=== PATIENT | female | born 1940 | race Two or more races ===

== ENCOUNTER 2021-11-23 13:29 | Inpatient (IN) | payer OTHER, MEDICAID ==
[~2021-11-23] VITALS: Ht 157.5 cm; Wt 54.0 kg
--- NOTE | 2021-11-23 13:45 | NUR ---
[employer]ILY [facility]EBR FOR ABD PAIN 8/10 AND DIFFICULTY AND PAINFULL URINATION SINCE LAST NIGHT. PLACED COMFORTABLY IN BED. VITALS CHECKED.
--- NOTE | 2021-11-23 13:53 | NUR ---
UNABLE TO PROVIDE URINE AT THIS TIME
[2021-11-23] MEDS ORDERED: BENZ0.5T43 PO (13:56)
[2021-11-23] MEDS ORDERED: DONE10TA44 PO (13:56)
[2021-11-23] MEDS ORDERED: NIFE-35 PO (13:56)
[2021-11-23] MEDS ORDERED: LORA2TAB95 PO (13:56)
[2021-11-23] MEDS ORDERED: APIX2.5T PO (13:56)
[2021-11-23] MEDS ORDERED: DOCU-141 PO (13:56)
[2021-11-23] MEDS ORDERED: METO50TA16 PO (13:56)
[2021-11-23] MEDS ORDERED: EPLE25TA10 PO (13:56)
[2021-11-23] MEDS ORDERED: ONDA-97 PO (13:56)
[2021-11-23] MEDS ORDERED: POTA20TA83 PO (13:56)
[2021-11-23] MEDS ORDERED: LEVO75TA7 PO (13:56)
[2021-11-23] MEDS ORDERED: MEMA10TA56 PO (13:56)
[2021-11-23] MEDS ORDERED: HYDR-4076 PO (13:56)
[2021-11-23] MEDS ORDERED: QUET25TA PO (13:56)
[2021-11-23] MEDS ORDERED: ZOLP12.52 PO (13:56)
[2021-11-23] MEDS ORDERED: ESCI10TA PO (13:56)
--- NOTE | 2021-11-23 14:05 | NUR ---
EKG DONE AT BEDSIDE
[2021-11-23 14:15] LABS: BASOPHILS % (AUTO) 0.5 % (0.0-2.0); EOSINOPHILS % (AUTO) 1.2 % (0.0-6.0); HEMATOCRIT 25 % (33-45); LYMPHOCYTES # (AUTO) 1.5 K/uL (0.8-4.8); LYMPHOCYTES % (AUTO) 21.5 % (20.0-44.0); MEAN CORPUSCULAR HGB CONC 32 g/dl (31.0-36.0); MEAN CORPUSCULAR VOLUME 79 fL (82-100); MONOCYTES # (AUTO) 0.7 K/uL (0.1-1.30); MONOCYTES % (AUTO) 9.6 % (2.0-12.0); NEUTROPHILS # (AUTO) 4.8 K/uL (1.8-8.9); NEUTROPHILS % (AUTO) 67.2 % (43.0-81.0); PLATELET COUNT (AUTO) 354 K/uL (150-450); RED BLOOD CELL COUNT(AUTO) 3.18 MIL/uL (4.0-5.2); WHITE BLOOD COUNT (AUTO) 7.1 K/uL (4.3-11.0)
--- NOTE | 2021-11-23 14:20 | NUR ---
IV CANNULA G20 INSERTED ON LEFT AC. NS FLUSH DONE
--- NOTE | 2021-11-23 14:26 | NUR ---
FAMILY :ART , VERENA
--- NOTE | 2021-11-23 14:31 | NUR ---
WHEELED PATIENT TO CT DEPARTMENT
[2021-11-23 14:36] LABS: CALCIUM, SERUM 8.2 mg/dL (8.5-10.1); CARBON DIOXIDE 29 mmol/L (21-32); CHLORIDE 101 mmol/L (98-107); GLUCOSE 95 mg/dL (74-106); POTASSIUM 3.5 mmol/L (3.5-5.1); SODIUM SERUM 140 mmol/L (136-145); UREA NITROGEN, BLOOD 9 mg/dL (7-18)
--- NOTE | 2021-11-23 14:46 | NUR ---
BACK FROM CT DEPT
--- NOTE | 2021-11-23 14:56 | NUR ---
COVID ANTIGEN SWAB DONE AND SENT TO LAB
[2021-11-23 15:23] LABS: ALBUMIN 3.4 g/dL (3.4-5.0); BILIRUBIN,DIRECT 0.1 mg/dL (0.0-0.2); BILIRUBIN,TOTAL 0.4 mg/dL (0.2-1.0); TOTAL PROTEIN, SERUM 7.4 g/dL (6.4-8.2)
--- NOTE | 2021-11-23 15:49 | NUR ---
IFC F16 INSERTED. URINE SPECIMEN SENT TO LAB
[2021-11-23 16:02] LABS: BILIRUBIN,URINE NEGATIVE (NEGATIVE); COLOR,URINE YELLOW (YELLOW); LEUKOCYTE ESTERASE ,URINE NEGATIVE (NEGATIVE); NITRITE, URINE NEGATIVE (NEGATIVE); PH,URINE 7.5 (5.0-8.0); PROTEIN,URINE NEGATIVE (NEGATIVE); UGLUCOSE NEGATIVE (NEGATIVE); UROBILINOGEN,URINE 0.2 EU/dL (0.2)
--- NOTE | 2021-11-23 16:17 | NUR ---
PATIENT CAN HAVE SOUP PER DR. CHENG.
--- NOTE | 2021-11-23 16:41 | NUR ---
WILLOW SERVED TO PATIENT
--- NOTE | 2021-11-23 16:58 | NUR ---
PATIENT ATE AND ABLE TO FINISH HER MEAL WITHOUT DIFFICULTY
--- NOTE | 2021-11-23 19:50 | NUR ---
report given to NILSON RUEDA
[2021-11-23] MEDS ORDERED: FAMOTIDINE (20 MG) 20 MG TABLET PO SCH (20:00)
[2021-11-23 20:15] VITALS: BP 197/79
--- NOTE | 2021-11-23 20:15 | NUR ---
TRANSFERRED PATIENT TO ROOM
--- NOTE | 2021-11-23 20:15 | NUR ---
MS SENIOR ORACLE PL SQL DEVELOPER NOTES RECEIVED PATIENT FROM ED VIA GURNEY. A/O X2-3. BREATHING EVEN AND UNLABORED. C/O MILD PAIN 3/10 ON HER ABDOMEN. SOFT AND TENDER ON PALPATION. HAS LEFT ANTECUBITAL IV ACCESS #20G AND SALINE LOCKED. SAFETY MEASURES IN PLACE. WILL CONTINUE PLAN OF CARE.
--- NOTE | 2021-11-23 20:45 | NUR ---
MS RN NOTES REPORTED BP 189/[address] PEREIRA. HE SAW THE PATIENT AFTER BEING NOTIFIED. NO NEW ORDERS GIVEN. I ALSO ASKED THE PATIENT IF HER BP IS ALWAYS HIGH, SHE SAID YES AND SHE WAS NOT ABLE TO TAKE HER BP MEDS TODAY.
[2021-11-23] MEDS ORDERED: ONDANSETRON HCL/PF 4 MG/2 ML VIAL IVP PRN (21:30)
[2021-11-23] MEDS ORDERED: ONDANSETRON 4 MG TAB.RAPDIS PO PRN (21:30)
[2021-11-23] MEDS ORDERED: MAGNESIUM HYDROXIDE 30 ML UDC PO PRN (21:30)
[2021-11-23] MEDS ORDERED: Z GUARD REMEDY 4 OZ OINT TP PRN (21:30)
[2021-11-23] MEDS ORDERED: MAG HYDROX/AL HYDROX/SIMETH 30 ML UDC PO PRN (21:30)
[2021-11-23] MEDS ORDERED: ACETAMINOPHEN 325 MG TABLET PO PRN (21:30)
[2021-11-23] MEDS ORDERED: Medication Not On Formulary EA (Zolpidem Tartrate (Ambien Cr) 12.5 MG) PO SCH (22:00)
[2021-11-23] MEDS: ZOLPIDEM TARTRATE 5 MG TABLET PO SCH (22:28)
[2021-11-23] MEDS: MORPHINE SULFATE INJ 2 MG/ML DISP.SYRIN IV PRN (23:25)
[2021-11-24 00:17] VITALS: BP 181/70
--- NOTE | 2021-11-24 00:19 | NUR ---
MS RN NOTES PATIENT'S BP IS 181/70 AND PULSE 67. REPORTED TO DR. PEREIRA. ORDERED APRESOLINE 25 MG PO ONCE SINCE PATIENT WASN'T ABLE TO TAKE HER BP MEDS.
[2021-11-24] MEDS ORDERED: hydrALAZINE HCL 25 MG TABLET PO ONE (00:20)
[2021-11-24] MEDS: MORPHINE SULFATE INJ 2 MG/ML DISP.SYRIN IV PRN ×3 (04:10→15:30)
--- NOTE | 2021-11-24 04:30 | NUR ---
MS RN NOTES PATIENT C/O CHEST PAIN. ADMINISTERED PRN MORPHINE AND NORCO AN HOUR APART. STILL C/O PAIN AND AGITATED. NOTIFIED DR. PEREIRA AND ORDERED TO OBSERVE PATIENT ONLY SINCE SHE HAS DEMENTIA.
[2021-11-24] MEDS: HYDROCODONE/APAP 5/325MG TABLET PO PRN ×2 (04:57→12:38)
[2021-11-24 06:34] LABS: BASOPHILS % (AUTO) 0.5 % (0.0-2.0); EOSINOPHILS % (AUTO) 1.4 % (0.0-6.0); HEMATOCRIT 26 % (33-45); HEMOGLOBIN 8.4 g/dL (11.5-14.8); LYMPHOCYTES # (AUTO) 1.3 K/uL (0.8-4.8); LYMPHOCYTES % (AUTO) 18.3 % (20.0-44.0); MEAN CORPUSCULAR HGB CONC 33 g/dl (31.0-36.0); MEAN CORPUSCULAR VOLUME 81 fL (82-100); MONOCYTES # (AUTO) 0.6 K/uL (0.1-1.30); MONOCYTES % (AUTO) 8.6 % (2.0-12.0); NEUTROPHILS # (AUTO) 4.9 K/uL (1.8-8.9); NEUTROPHILS % (AUTO) 71.2 % (43.0-81.0); PLATELET COUNT (AUTO) 350 K/uL (150-450); RED BLOOD CELL COUNT(AUTO) 3.15 MIL/uL (4.0-5.2); WHITE BLOOD COUNT (AUTO) 6.9 K/uL (4.3-11.0)
[2021-11-24] MEDS: LEVOTHYROXINE SODIUM 75 MCG TABLET PO SCH (06:39)
--- NOTE | 2021-11-24 07:00 | NUR ---
MS RN CLOSING NOTES PATIENT LYING IN BED WITH EYES CLOSED. EASY TO AROUSE. A/O X2-3 WITH CONFUSION NOTED. ON O2 AT 2LPM VIA NASAL CANULA. NO SOB OR NOTED. C/O ABDOMINAL PAIN. HAS LEFT ANTECUBITAL IV ACCESS #20G AND SALINE LOCKED. INTACT, PATENT AND FLUSHING. ALL NEEDS ATTENDED. SKIN ASSESSMENT DONE AND PHOTOS TAKEN. KEPT DRY AND COMFORTABLE. SAFETY MEASURES IN PLACE: BED LOW AND LOCKED, SIDE RAILS UP X2, CALL LIGHT WITHIN REACH.
[2021-11-24 07:29] LABS: CALCIUM, SERUM 8.2 mg/dL (8.5-10.1); CREATININE 0.8 mg/dL (0.6-1.3); MAGNESIUM 1.7 mg/dL (1.8-2.4); PHOSPHORUS 3.2 mg/dL (2.5-4.9)
--- NOTE | 2021-11-24 07:33 | NUR ---
RN OPENING NOTE- PT IN BED, ASLEEP, EASILY AWAKENED, ALERT CONFUSED, INTERACTIVE. IV 20G TO LAC, DENIES PAIN AT PRESENT, FC TO GRAVITY, BED LOCKED, SIDE RAILS UP, SAFETY MEASURES IN PLACE, MONITOR / ASSIST
[2021-11-24] MEDS: PANTOPRAZOLE 40 MG TABLET.DR PO SCH (07:50)
[2021-11-24 07:52] LABS: POTASSIUM 2.8 mmol/L (3.5-5.1)
[2021-11-24 08:03] LABS: THYROID STIMULATING HORMONE 14.751 uIU/mL (0.358-3.74)
--- NOTE | 2021-11-24 08:13 | NUR ---
RN NOTE- K 2.8. AWARE
[2021-11-24] MEDS: DOCUSATE SODIUM 100 MG CAPSULE PO SCH ×2 (08:30→17:40)
[2021-11-24] MEDS: MEMANTINE HCL 5 MG TABLET PO SCH (08:30)
[2021-11-24] MEDS: POTASSIUM CHLORIDE 20 MEQ TAB.PRT.SR PO SCH ×3 (08:31→10:44)
[2021-11-24] MEDS: NIFEdipine XL (30MG) 30 MG TAB PO SCH (08:31)
[2021-11-24] MEDS: BENZTROPINE MESYLATE (1 MG) 1 MG TABLET PO SCH ×2 (08:31→17:39)
[2021-11-24] MEDS: METOPROLOL TARTRATE 50 MG TABLET PO SCH ×2 (08:32→17:41)
[2021-11-24] MEDS: ESCITALOPRAM OXALATE (10 MG) 10 MG TABLET PO SCH (08:32)
[2021-11-24] MEDS: hydrALAZINE HCL 25 MG TABLET PO SCH ×2 (08:33→17:39)
[2021-11-24] MEDS: APIXABAN 2.5 MG TABLET PO SCH ×2 (08:35→17:43)
[2021-11-24] MEDS: MAGNESIUM OXIDE 400 MG TABLET PO ONE ×2 (10:00→10:44)
[2021-11-24] MEDS: Magnesium 1GM/D5W 100ML PREMIX 100 ML IV SCH ×2 (12:41→17:02)
[2021-11-24] MEDS: POTASSIUM CL. PREMIX PERIPHER. 50 ML IV SCH ×4 (15:30→18:17)
[2021-11-24] MEDS: LORAZEPAM 1 MG TABLET PO SCH (17:40)
[2021-11-24] MEDS ORDERED: QUETIAPINE FUMARATE 25 MG TABLET PO SCH (18:00)
[2021-11-24] MEDS ORDERED: Magnesium 1GM/D5W 100ML PREMIX 100 ML IV SCH (18:00)
[2021-11-24] MEDS: DONEPEZIL 5 MG TABLET PO SCH (18:17)
--- NOTE | 2021-11-24 18:45 | NUR ---
RN CLOSING NOTE- PT CONFUSED, PAIN MANAGED W MORPHINE AND NORCO. ABDOMINAL PAIN PERSISTS. DR MATHUR TO SEE PT. ABDOMEN DISTENDED W HYPOACTIVE BS THROUGHOUT. CT ABD RESULTS IN. + DIVERTICULOSIS. IVF GIVEN AND ELECTROLYTES REPLACED. PO INTAKE POOR. SAFETY PROTOCOLS IN PLACE. MONITOR, ASSIST
--- NOTE | 2021-11-24 19:45 | NUR ---
MS RN OPENING NOTES RECEIVED PATIENT LAYING AWAKE IN BED. A/O X 2. PATIENT WITH REGULAR AND UNLABORED BREATHING ON ROOM AIR, TOLERATED WELL. NO SIGNS AND SYMPTOMS OF DISTRESS NOTED AT THIS TIME. NO COMPLAINS OF PAIN OR DISCOMFORT AT THIS TIME. IV ACCESS LAC G #20 SL. IV ACCESS PATENT AND INTACT. SAFETY PRECAUTIONS ENFORCED WITH BED LOCKED AND AT LOWEST POSITION. SIDERAILS UP X2. CALL LIGHT WITHIN REACH AT ALL TIMES. WILL CONTINUE TO MONITOR PATIENT.
[2021-11-24 20:00] VITALS: BP 114/64
[2021-11-24] MEDS: ZOLPIDEM TARTRATE 5 MG TABLET PO SCH (21:46)
[2021-11-25 06:03] LABS: CALCIUM, SERUM 8.5 mg/dL (8.5-10.1); CARBON DIOXIDE 27 mmol/L (21-32); CHLORIDE 98 mmol/L (98-107); GLUCOSE 107 mg/dL (74-106); MAGNESIUM 2.6 mg/dL (1.8-2.4); POTASSIUM 3.7 mmol/L (3.5-5.1); SODIUM SERUM 133 mmol/L (136-145); UREA NITROGEN, BLOOD 10 mg/dL (7-18)
--- NOTE | 2021-11-25 07:06 | NUR ---
MS RN CLOSING NOTES PATIENT STILL LAYING AWAKE IN BED. A/O X 2. PATIENT WITH REGULAR AND UNLABORED BREATHING ON 2 LPM VIA NASAL CANULA, TOLERATED WELL. NO SIGNS AND SYMPTOMS OF DISTRESS NOTED AT THIS TIME. NO COMPLAINS OF PAIN OR DISCOMFORT AT THIS TIME. IV ACCESS LAC G #20 SL. IV ACCESS PATENT AND INTACT. SAFETY PRECAUTIONS ENFORCED WITH BED LOCKED AND AT LOWEST POSITION. SIDERAILS UP X2. CALL LIGHT WITHIN REACH AT ALL TIMES. WILL ENDORSE CONTINUITY OF CARE TO DAY SHIFT NURSE.
--- NOTE | 2021-11-25 07:30 | NUR ---
MS RN OPENING NOTES PATIENT LYING IN BED AWAKE. A/O X2-3 . ON O2 AT 2LPM VIA NASAL CANULA. NO SOB OR NOTED. NO PAIN NOTED. HAS LEFT ANTECUBITAL IV ACCESS #20G AND SALINE LOCKED. INTACT, PATENT AND FLUSHING. SAFETY MEASURES IN PLACE: BED LOW AND LOCKED, SIDE RAILS UP X2, CALL LIGHT WITHIN REACH. WILL CONTINUE TO MONITOR.
[2021-11-25] MEDS: LEVOTHYROXINE SODIUM 75 MCG TABLET PO SCH (07:40)
[2021-11-25] MEDS: PANTOPRAZOLE 40 MG TABLET.DR PO SCH (07:40)
[2021-11-25] MEDS: DOCUSATE SODIUM 100 MG CAPSULE PO SCH ×2 (08:38→16:22)
[2021-11-25] MEDS: NIFEdipine XL (30MG) 30 MG TAB PO SCH (08:38)
[2021-11-25] MEDS: BENZTROPINE MESYLATE (1 MG) 1 MG TABLET PO SCH ×2 (08:39→16:22)
[2021-11-25] MEDS: MEMANTINE HCL 5 MG TABLET PO SCH (08:39)
[2021-11-25] MEDS: METOPROLOL TARTRATE 50 MG TABLET PO SCH ×2 (08:40→16:23)
[2021-11-25] MEDS: POTASSIUM CHLORIDE 20 MEQ TAB.PRT.SR PO SCH (08:40)
[2021-11-25] MEDS: ESCITALOPRAM OXALATE (10 MG) 10 MG TABLET PO SCH (08:40)
[2021-11-25] MEDS: hydrALAZINE HCL 25 MG TABLET PO SCH ×2 (08:41→16:22)
[2021-11-25] MEDS: SPIRONOLACTONE 25 MG TABLET PO SCH (16:22)
[2021-11-25] MEDS: DONEPEZIL 5 MG TABLET PO SCH (17:51)
[2021-11-25] MEDS: QUETIAPINE FUMARATE 25 MG TABLET PO SCH (17:52)
[2021-11-25] MEDS: LORAZEPAM 1 MG TABLET PO SCH (17:52)
--- NOTE | 2021-11-25 19:30 | NUR ---
MS RN CLOSING NOTES PATIENT LYING IN BED AWAKE. A/O X2-3 . ON O2 AT 2LPM VIA NASAL CANULA. NO SOB OR NOTED. NO PAIN NOTED. HAS LEFT ANTECUBITAL IV ACCESS #20G AND SALINE LOCKED. INTACT, PATENT AND FLUSHING. ALL DUE MEDS GIVEN ORDERED. SAFETY MEASURES IN PLACE: BED LOW AND LOCKED, SIDE RAILS UP X2, CALL LIGHT WITHIN REACH. WILL ENDORSE FOR IRAJ..
[2021-11-25 20:00] VITALS: BP 143/64
--- NOTE | 2021-11-25 21:25 | NUR ---
MS RN OPENING NOTES: RECEIVED PATIENT SLEEP IN BED COMFORTABLY AROUSABLE TO VERBAL STIMULI, BED IN LOW POSITION, CALL LIGHTS WITHIN REACH, NO COMPLAIN OF PAIN AND DISCOMFORT AT THIS TIME ON ROOM AIR SATURATING WELL, PATIENT KEPT CLEAN AND DRY ALL NEEDS MET WILL CONTINUE TO MONITOR.
[2021-11-25] MEDS: ZOLPIDEM TARTRATE 5 MG TABLET PO SCH (22:03)
--- NOTE | 2021-11-26 06:13 | NUR ---
RN CLOSING NOTES: PATIENT SLEEP IN BED COMFORTABLY, AROUSABLE TO VERBAL STIMULI, BED IN LOW POSITION , CALL LIGHTS WITHIN REACH,NO COMPLAIN OF PAIN AND DISCOMFORT AT THIS TIME, ON ROOM AIR SATURATING WELL, PATIENT KEPT CLEAN AND DRY ALL NEEDS MET ENDORSE TO INCOMING SHIFT.
[2021-11-26] MEDS: LEVOTHYROXINE SODIUM 75 MCG TABLET PO SCH (06:46)
--- NOTE | 2021-11-26 07:00 | NUR ---
MS RN OPENING NOTES PATIENT LAYING IN BED, A/O X 2-3, ABLE TO MAKE NEEDS KNOWN. L AC # 20 CLEAN, INTACT, AND FLUSHING WELL. TOLERATING WELL ON ROOM AIR WITH NO SOB OR S/S RESPIRATORY DISTRESS. NO COMPLAINTS OF PAIN OR DISCOMFORT AT THIS TIME. SAFETY MEASURES IN PLACE: BED IN LOWEST LOCKED POSITION, SIDE RAILS UP X 2, CALL LIGHT WITHIN REACH. WILL CONTINUE TO MONITOR.
[2021-11-26] MEDS: PANTOPRAZOLE 40 MG TABLET.DR PO SCH (07:35)
[2021-11-26 08:31] VITALS: BP 157/71
[2021-11-26] MEDS: MEMANTINE HCL 5 MG TABLET PO SCH (08:31)
[2021-11-26] MEDS: BENZTROPINE MESYLATE (1 MG) 1 MG TABLET PO SCH ×2 (08:31→17:42)
[2021-11-26] MEDS: hydrALAZINE HCL 25 MG TABLET PO SCH ×2 (08:31→17:43)
[2021-11-26] MEDS: METOPROLOL TARTRATE 50 MG TABLET PO SCH ×2 (08:33→17:44)
[2021-11-26] MEDS: DOCUSATE SODIUM 100 MG CAPSULE PO SCH ×2 (08:33→17:41)
[2021-11-26] MEDS: POTASSIUM CHLORIDE 20 MEQ TAB.PRT.SR PO SCH (08:33)
[2021-11-26] MEDS: SPIRONOLACTONE 25 MG TABLET PO SCH ×2 (08:34→17:42)
[2021-11-26] MEDS: NIFEdipine XL (30MG) 30 MG TAB PO SCH (08:34)
[2021-11-26] MEDS ORDERED: ZOSYN IVPB 3.375 G in IV D5W 50ml IV ONE (09:00)
[2021-11-26] MEDS ORDERED: ESCITALOPRAM OXALATE (10 MG) 10 MG TABLET PO SCH (09:00)
[2021-11-26] MEDS ORDERED: PIPERACILLIN /TAZOBACTAM 3.375 G in IV D5W 50 ML IV SCH (12:00)
[2021-11-26] MEDS: PIPERACILLIN /TAZOBACTAM 3.375 G in IV D5W 100 ML IV SCH ×2 (14:39→22:17)
[2021-11-26 16:43] VITALS: BP_SYST 153; BP_SYST 86; BP_DIAS 50; BP_DIAS 66
[2021-11-26] MEDS: DONEPEZIL 5 MG TABLET PO SCH (17:41)
[2021-11-26] MEDS: LORAZEPAM 1 MG TABLET PO SCH (17:41)
[2021-11-26] MEDS: QUETIAPINE FUMARATE 25 MG TABLET PO SCH (17:43)
--- NOTE | 2021-11-26 19:00 | NUR ---
MS RN CLOSING NOTES PATIENT LAYING IN BED, A/O X 3, ABLE TO MAKE NEEDS KNOWN. L AC # 20 CLEAN, INTACT, AND FLUSHING WELL. TOLERATING WELL ON ROOM AIR WITH NO SOB OR S/S RESPIRATORY DISTRESS. NO COMPLAINTS OF PAIN OR DISCOMFORT AT THIS TIME. SAFETY MEASURES IN PLACE: BED IN LOWEST LOCKED POSITION, SIDE RAILS UP X 2, CALL LIGHT WITHIN REACH. ALL NEEDS MET. WILL ENDORSE TO RN LAB FOR IRAJ.
--- NOTE | 2021-11-26 20:06 | NUR ---
MS RN OPENING NOTES PATIENT LAYING IN BED, A/O X 2-3,PERIOD OF CONFUSION.ON RA ARIANA WELL NO SIGN SOB/DISTRESS NOTED.L AC # 20 CLEAN, INTACT, AND FLUSHING WELL.NO COMPLAINTS OF PAIN OR DISCOMFORT AT THIS TIME. SAFETY MEASURES IN PLACE: BED IN LOWEST LOCKED POSITION, SIDE RAILS UP X 2, CALL LIGHT WITHIN REACH. WILL CONTINUE TO MONITOR.
[2021-11-26 20:34] VITALS: BP 170/62
[2021-11-26] MEDS: ZOLPIDEM TARTRATE 5 MG TABLET PO SCH (21:40)
[2021-11-27 02:42] VITALS: BP 112/70
[2021-11-27 02:58] VITALS: BP 172/62
[2021-11-27] MEDS: PIPERACILLIN /TAZOBACTAM 3.375 G in IV D5W 100 ML IV SCH ×3 (06:10→23:09)
[2021-11-27] MEDS: LEVOTHYROXINE SODIUM 75 MCG TABLET PO SCH (06:11)
[2021-11-27 06:21] LABS: BASOPHILS % (AUTO) 0.6 % (0.0-2.0); EOSINOPHILS % (AUTO) 2.4 % (0.0-6.0); HEMATOCRIT 24 % (33-45); HEMOGLOBIN 7.7 g/dL (11.5-14.8); LYMPHOCYTES # (AUTO) 1.4 K/uL (0.8-4.8); LYMPHOCYTES % (AUTO) 25.8 % (20.0-44.0); MEAN CORPUSCULAR HGB CONC 32 g/dl (31.0-36.0); MEAN CORPUSCULAR VOLUME 80 fL (82-100); MONOCYTES # (AUTO) 0.6 K/uL (0.1-1.30); MONOCYTES % (AUTO) 11.5 % (2.0-12.0); NEUTROPHILS # (AUTO) 3.3 K/uL (1.8-8.9); NEUTROPHILS % (AUTO) 59.7 % (43.0-81.0); PLATELET COUNT (AUTO) 352 K/uL (150-450); RED BLOOD CELL COUNT(AUTO) 3.02 MIL/uL (4.0-5.2); WHITE BLOOD COUNT (AUTO) 5.6 K/uL (4.3-11.0)
[2021-11-27 06:35] LABS: CALCIUM, SERUM 8.2 mg/dL (8.5-10.1); MAGNESIUM 2.1 mg/dL (1.8-2.4); POTASSIUM 3.9 mmol/L (3.5-5.1)
--- NOTE | 2021-11-27 07:00 | NUR ---
MS RN OPENING NOTES PATIENT LAYING IN BED, A/O X 3, ABLE TO MAKE NEEDS KNOWN. L AC # 20 CLEAN, INTACT, AND FLUSHING WELL. TOLERATING WELL ON ROOM AIR WITH NO SOB OR S/S RESPIRATORY DISTRESS. NO COMPLAINTS OF PAIN OR DISCOMFORT AT THIS TIME. SAFETY MEASURES IN PLACE: BED IN LOWEST LOCKED POSITION, SIDE RAILS UP X 2, CALL LIGHT WITHIN REACH. WILL CONTINUE TO MONITOR.
[2021-11-27] MEDS: PANTOPRAZOLE 40 MG TABLET.DR PO SCH (07:49)
--- NOTE | 2021-11-27 07:54 | NUR ---
MS RN CLOSING NOTES PATIENT LAYING IN BED, A/O X 3, ABLE TO MAKE NEEDS KNOWN. L AC # 20 CLEAN, INTACT, AND FLUSHING WELL. TOLERATING WELL ON ROOM AIR WITH NO SOB OR S/S RESPIRATORY DISTRESS. NO COMPLAINTS OF PAIN OR DISCOMFORT AT THIS TIME. SAFETY MEASURES IN PLACE: BED IN LOWEST LOCKED POSITION, SIDE RAILS UP X 2, CALL LIGHT WITHIN REACH. ALL NEEDS MET. WILL ENDORSE TO FINISHER SPECIAL STOCKS FOR IRAJ.
[2021-11-27 08:00] VITALS: BP 145/58
[2021-11-27] MEDS: NIFEdipine XL (30MG) 30 MG TAB PO SCH (08:48)
[2021-11-27] MEDS: METOPROLOL TARTRATE 50 MG TABLET PO SCH ×2 (08:49→16:42)
[2021-11-27] MEDS: POTASSIUM CHLORIDE 20 MEQ TAB.PRT.SR PO SCH (08:50)
[2021-11-27] MEDS: SPIRONOLACTONE 25 MG TABLET PO SCH ×2 (08:50→16:40)
[2021-11-27] MEDS: MEMANTINE HCL 5 MG TABLET PO SCH (08:50)
[2021-11-27] MEDS: BENZTROPINE MESYLATE (1 MG) 1 MG TABLET PO SCH ×2 (08:50→16:42)
[2021-11-27] MEDS: DOCUSATE SODIUM 100 MG CAPSULE PO SCH ×2 (08:50→16:42)
[2021-11-27] MEDS: hydrALAZINE HCL 25 MG TABLET PO SCH ×2 (08:51→16:42)
[2021-11-27] MEDS ORDERED: SERTRALINE HCL 25 MG TABLET PO SCH (09:00)
[2021-11-27] MEDS ORDERED: ESCITALOPRAM OXALATE (10 MG) 10 MG TABLET PO SCH (09:00)
[2021-11-27 15:59] VITALS: BP 160/75
[2021-11-27] MEDS: SERTRALINE HCL 25 MG TABLET PO SCH (16:41)
[2021-11-27] MEDS: DONEPEZIL 5 MG TABLET PO SCH (17:07)
[2021-11-27] MEDS: LORAZEPAM 1 MG TABLET PO SCH (17:08)
--- NOTE | 2021-11-27 19:00 | NUR ---
MS RN CLOSING NOTES PATIENT LAYING IN BED, A/O X 3, ABLE TO MAKE NEEDS KNOWN. L AC # 20 CLEAN, INTACT, AND FLUSHING WELL. TOLERATING WELL ON ROOM AIR WITH NO SOB OR S/S RESPIRATORY DISTRESS. NO COMPLAINTS OF PAIN OR DISCOMFORT AT THIS TIME. SAFETY MEASURES IN PLACE: BED IN LOWEST LOCKED POSITION, SIDE RAILS UP X 2, CALL LIGHT WITHIN REACH. ALL NEEDS MET. WILL ENDORSE TO FLIGHT OPERATIONS INSPECTOR FOR IRAJ.
--- NOTE | 2021-11-27 19:30 | NUR ---
MS RN OPENING NOTE RECEIVED PATIENT IN BED. A/OX3. WATCHING TELEVISION. NO S/S OF APPARENT DISTRESS ON ROOM AIR. C/O ABDOMINAL PAIN BUT TOLERABLE, PATIENT ASKING FOR ICE CREAM.. ICE CHIPS GIVEN. STEPHEN CATHETER NOTED-- DRAINING CLEAR, YELLOW URINE. L. AC IV ACCESS NOTED TO BE INFILTRATED-- WILL INSERT NEW IV. ALL NEEDS ATTENDED AT THIS TIME. RE-ORIENTED WITH THE USE OF CALL LIGHT. WILL CONTINUE WITH PLAN OF CARE FOR PATIENT.
--- NOTE | 2021-11-27 19:30 | NUR ---
MS DEVINE OPENING NOTE RECEIVED PATIENT IN BED, A/OX Addendum: 11/28/21 at 0236 by CINDA ARELALNO RN DISREGARD
[2021-11-27 20:00] VITALS: BP 155/70
--- NOTE | 2021-11-27 20:00 | NUR ---
MS RN NOTE NEW IV ACCESS ON R. HAND #22G-- RESTARTED ON IV ANTIBIOTICS AT THIS TIME.
[2021-11-27] MEDS: ZOLPIDEM TARTRATE 5 MG TABLET PO SCH (21:55)
[2021-11-28] MEDS: LEVOTHYROXINE SODIUM 75 MCG TABLET PO SCH (06:43)
[2021-11-28] MEDS: PIPERACILLIN /TAZOBACTAM 3.375 G in IV D5W 100 ML IV SCH ×3 (06:43→23:33)
--- NOTE | 2021-11-28 07:00 | NUR ---
MS RN OPENING NOTES PATIENT LAYING IN BED, A/O X 3, ABLE TO MAKE NEEDS KNOWN. TOLERATING WELL ON ROOM AIR WITH NO SOB OR S/S RESPIRATORY DISTRESS. STEPHEN CATHETER IN PLACE DRAINING CLEAR YELLOW URINE TO GRAVITY. R HAND 22 G SL CLEAN, INTACT, AND FLUSHING WELL. SAFETY MEASURES IN PLACE: BED IN LOWEST LOCKED POSITION, SIDE RAILS UP X 2, CALL LIGHT WITHIN REACH. WILL CONTINUE TO MONITOR.
--- NOTE | 2021-11-28 07:17 | NUR ---
MS RN NOTE NEEDS ATTENDED. NO SIGNIFICANT CHANGE WITH PATIENT. REPORT GIVEN TO AMARILYS FOR CONTINUITY OF CARE.
[2021-11-28] MEDS: PANTOPRAZOLE 40 MG TABLET.DR PO SCH (07:24)
[2021-11-28 08:42] VITALS: BP 167/78
[2021-11-28] MEDS: POTASSIUM CHLORIDE 20 MEQ TAB.PRT.SR PO SCH (08:42)
[2021-11-28] MEDS: SPIRONOLACTONE 25 MG TABLET PO SCH ×2 (08:42→17:07)
[2021-11-28] MEDS: ESCITALOPRAM OXALATE (10 MG) 10 MG TABLET PO SCH (08:42)
[2021-11-28] MEDS: DOCUSATE SODIUM 100 MG CAPSULE PO SCH ×2 (08:42→17:02)
[2021-11-28] MEDS: BENZTROPINE MESYLATE (1 MG) 1 MG TABLET PO SCH ×2 (08:43→17:06)
[2021-11-28] MEDS: MEMANTINE HCL 5 MG TABLET PO SCH (08:43)
[2021-11-28] MEDS: SERTRALINE HCL 25 MG TABLET PO SCH ×2 (08:43→17:02)
[2021-11-28] MEDS: NIFEdipine XL (30MG) 30 MG TAB PO SCH (08:45)
[2021-11-28] MEDS: hydrALAZINE HCL 25 MG TABLET PO SCH ×2 (08:45→17:07)
[2021-11-28] MEDS: METOPROLOL TARTRATE 50 MG TABLET PO SCH ×2 (08:46→17:05)
[2021-11-28 16:40] VITALS: BP 176/74
[2021-11-28] MEDS: LORAZEPAM 1 MG TABLET PO SCH (17:29)
[2021-11-28] MEDS: DONEPEZIL 5 MG TABLET PO SCH (17:29)
--- NOTE | 2021-11-28 19:00 | NUR ---
MS RN CLOSING NOTES PATIENT LAYING IN BED, A/O X 3, ABLE TO MAKE NEEDS KNOWN. TOLERATING WELL ON ROOM AIR WITH NO SOB OR S/S RESPIRATORY DISTRESS. STEPHEN CATHETER IN PLACE DRAINING CLEAR YELLOW URINE TO GRAVITY. R HAND 22 G SL CLEAN, INTACT, AND FLUSHING WELL. SAFETY MEASURES IN PLACE: BED IN LOWEST LOCKED POSITION, SIDE RAILS UP X 2, CALL LIGHT WITHIN REACH. ALL NEEDS MET. WILL ENDORSE TO POLICY CHECKER FOR IRAJ.
--- NOTE | 2021-11-28 19:15 | NUR ---
MS RN OPENING NOTES RECEIVED PATIENT IN BED; AWAKE, ALERT AND ORIENTED X2. ON ROOM AIR, TOLERATING WELL. BREATHING IS EVEN AND UNLABORED. NOT IN ANY FORM OF RESPIRATORY DISTRESS. WITH IV ACCESS ON RIGHT HAND G#22; PATENT, INTACT AND FLUSHES WELL. WITH STEPHEN CATHETER ATTACHED TO UROBAG DRAINING TO YELLOW URINE OUTPUT. ABLE TO MAKE NEEDS KNOWN. SAFETY MEASURES IMPLEMENTED: CALL BUTTON AND TABLE WITHIN EASY REACH, SIDE RAILS UP X2, BED IN LOWEST LOCKED POSITION. WILL CONTINUE PLAN OF CARE.
[2021-11-28 20:00] VITALS: BP 101/52
[2021-11-28 20:15] VITALS: BP 168/82
[2021-11-28] MEDS: ZOLPIDEM TARTRATE 5 MG TABLET PO SCH (22:30)
--- NOTE | 2021-11-29 07:05 | NUR ---
MS RN CLOSING NOTES PATIENT IN BED; AWAKE, ALERT AND ORIENTED X2. ON ROOM AIR, TOLERATING WELL. BREATHING IS EVEN AND UNLABORED. NOT IN ANY FORM OF RESPIRATORY DISTRESS. WITH IV ACCESS ON RIGHT HAND G#22; PATENT, INTACT AND FLUSHES WELL. WITH STEPHEN CATHETER ATTACHED TO UROBAG DRAINING TO YELLOW URINE OUTPUT. ABLE TO MAKE NEEDS KNOWN. SAFETY MEASURES IN PLACE. ENDORSED TO MORNING SHIFT FOR CONTINUITY OF CARE.
--- NOTE | 2021-11-29 07:43 | NUR ---
RN OPENING NOTES Patient seen comfortably lying in bed, no apparent distress noted, respirations even and unlabored, no shortness of breath, no grimacing, denies any pain or discomfort at this time. Call light left within reach, safety precautions in place, brakes locked, side rails up X 2.
[2021-11-29 08:00] VITALS: BP 143/72
[2021-11-29] MEDS: PIPERACILLIN /TAZOBACTAM 3.375 G in IV D5W 100 ML IV SCH ×3 (08:19→22:25)
[2021-11-29] MEDS: BENZTROPINE MESYLATE (1 MG) 1 MG TABLET PO SCH (08:19)
[2021-11-29] MEDS: DOCUSATE SODIUM 100 MG CAPSULE PO SCH ×2 (08:19→17:29)
[2021-11-29] MEDS: SERTRALINE HCL 25 MG TABLET PO SCH ×2 (08:19→17:28)
[2021-11-29] MEDS: NIFEdipine XL (30MG) 30 MG TAB PO SCH (08:19)
[2021-11-29] MEDS: POTASSIUM CHLORIDE 20 MEQ TAB.PRT.SR PO SCH (08:20)
[2021-11-29] MEDS: hydrALAZINE HCL 25 MG TABLET PO SCH ×2 (08:20→17:29)
[2021-11-29] MEDS: LEVOTHYROXINE SODIUM 75 MCG TABLET PO SCH (08:20)
[2021-11-29] MEDS: MEMANTINE HCL 5 MG TABLET PO SCH (08:20)
[2021-11-29] MEDS: PANTOPRAZOLE 40 MG TABLET.DR PO SCH (08:20)
[2021-11-29] MEDS: METOPROLOL TARTRATE 50 MG TABLET PO SCH ×2 (08:21→17:29)
[2021-11-29] MEDS: SPIRONOLACTONE 25 MG TABLET PO SCH ×2 (08:21→17:28)
[2021-11-29] MEDS: ESCITALOPRAM OXALATE (10 MG) 10 MG TABLET PO SCH (08:27)
[2021-11-29 13:53] LABS: BASOPHILS % (AUTO) 0.6 % (0.0-2.0); HEMATOCRIT 26 % (33-45); HEMOGLOBIN 8.1 g/dL (11.5-14.8); LYMPHOCYTES # (AUTO) 1.5 K/uL (0.8-4.8); LYMPHOCYTES % (AUTO) 23.6 % (20.0-44.0); MEAN CORPUSCULAR HGB CONC 31 g/dl (31.0-36.0); MEAN CORPUSCULAR VOLUME 79 fL (82-100); NEUTROPHILS # (AUTO) 3.8 K/uL (1.8-8.9); NEUTROPHILS % (AUTO) 57.8 % (43.0-81.0); PLATELET COUNT (AUTO) 381 K/uL (150-450); RED BLOOD CELL COUNT(AUTO) 3.26 MIL/uL (4.0-5.2); WHITE BLOOD COUNT (AUTO) 6.5 K/uL (4.3-11.0)
[2021-11-29 14:34] LABS: ALBUMIN 2.8 g/dL (3.4-5.0); BILIRUBIN,TOTAL 0.4 mg/dL (0.2-1.0); CALCIUM, SERUM 8.3 mg/dL (8.5-10.1); POTASSIUM 3.6 mmol/L (3.5-5.1); TOTAL PROTEIN, SERUM 6.9 g/dL (6.4-8.2)
[2021-11-29 15:32] LABS: EOSINOPHILS % (MANUAL) 2 % (0-4); LYMPHOCYTES % (MANUAL) 29 % (16-48); MONOCYTES % (MANUAL) 7 % (0-11.0); NEUTROPHILS % (MANUAL) 61 (42-76); REACTIVE LYMPHOCYTES 1 % (0-0)
[2021-11-29 16:00] VITALS: BP 156/68
[2021-11-29] MEDS: LORAZEPAM 1 MG TABLET PO SCH (17:28)
[2021-11-29] MEDS: DONEPEZIL 5 MG TABLET PO SCH (17:28)
--- NOTE | 2021-11-29 18:34 | NUR ---
RN CLOSING NOTES Patient lying in bed, no shortness of breath, breathing even and unlabored, no apparent distress noted, no grimacing, denies any pain or discomfort at this time. All due medications given as per MD order, tolerating well. Patient has an order for IV antibiotics, tolerating well and has IV peripheral line on her right hand, patent, intact and flushing well, no redness, no swelling noted, no s/s of infiltration at this time. Harvey catheter draining clear yellowish urine free from any sediments, no hematuria, and no unusual odor noted in urine, no grimacing when bladder palpated, bladder non distended during shift. Kept clean and dry, all needs anticipated, aspiration precautions rendered, call light left within reach, safety precautions in place, brakes locked, side rails up X 2.
[2021-11-29 20:00] VITALS: BP 133/58
--- NOTE | 2021-11-29 20:05 | NUR ---
RN OPENING NOTES Patient received in bed awake aox2-3.on rm air merna well. no msign sob/distress noted.no complain of pain/discomfort at this time.Call light left within reach, safety precautions in place, brakes locked, side rails up X 2.continue to monitor.
[2021-11-29] MEDS: ZOLPIDEM TARTRATE 5 MG TABLET PO SCH (21:11)
[2021-11-30 00:07] VITALS: BP 133/58
[2021-11-30] MEDS: LEVOTHYROXINE SODIUM 75 MCG TABLET PO SCH (06:01)
[2021-11-30] MEDS: PIPERACILLIN /TAZOBACTAM 3.375 G in IV D5W 100 ML IV SCH (06:01)
[2021-11-30 06:41] LABS: CALCIUM, SERUM 8.2 mg/dL (8.5-10.1); CARBON DIOXIDE 26 mmol/L (21-32); CHLORIDE 98 mmol/L (98-107); GLUCOSE 112 mg/dL (74-106); POTASSIUM 3.8 mmol/L (3.5-5.1); SODIUM SERUM 133 mmol/L (136-145); UREA NITROGEN, BLOOD 13 mg/dL (7-18)
--- NOTE | 2021-11-30 06:58 | NUR ---
RN BENITO NOTES. PATIENT IN BED AWAKED AOX2-3.ON RA ARIANA WELL NO SIGN SOB/DISTRESS NOTED.BREATHING EVEN UNLABOR.IV ACCESS ON R HAND #22G.ALL NEEDS ATTENDED.CALL LIGHT WITHIN REACH.SAFETY MEASURED INPLACE.BED LOW AND LOCKED POSITION.WILL ENDORSED TO NEXT SHIFT.
--- NOTE | 2021-11-30 07:47 | NUR ---
RN OPENING NOTES Patient seen comfortably lying in bed, no shortness of breath, no apparent distress noted, breathing even and unlabored, denies any pain or discomfort at this time, no grimacing. Call light left within reach, safety precautions in place, brakes locked, side rails up X 2.
[2021-11-30 08:14] VITALS: BP 146/66
[2021-11-30] MEDS: POTASSIUM CHLORIDE 20 MEQ TAB.PRT.SR PO SCH (08:43)
[2021-11-30] MEDS: DOCUSATE SODIUM 100 MG CAPSULE PO SCH (08:43)
[2021-11-30] MEDS: NIFEdipine XL (30MG) 30 MG TAB PO SCH (08:45)
[2021-11-30] MEDS: SERTRALINE HCL 25 MG TABLET PO SCH (08:45)
[2021-11-30] MEDS: MEMANTINE HCL 5 MG TABLET PO SCH (08:45)
[2021-11-30] MEDS: SPIRONOLACTONE 25 MG TABLET PO SCH (08:45)
[2021-11-30] MEDS: hydrALAZINE HCL 25 MG TABLET PO SCH (08:46)
[2021-11-30] MEDS: METOPROLOL TARTRATE 50 MG TABLET PO SCH (08:47)
[2021-11-30] MEDS: PANTOPRAZOLE 40 MG TABLET.DR PO SCH (08:48)
[2021-11-30] MEDS ORDERED: BENZTROPINE MESYLATE (1 MG) 1 MG TABLET PO SCH (09:00)
[2021-11-30] MEDS ORDERED: SERT25TA5 PO (11:45)
[2021-11-30] MEDS ORDERED: PANT40TA49 PO (11:45)
[2021-11-30] MEDS: HYDROCODONE/APAP 5/325MG TABLET PO PRN (14:03)
[2021-11-30 16:12] VITALS: BP 125/58
--- NOTE | 2021-11-30 16:30 | NUR ---
[facility], spoke to Arlene DEVINE to give report (phone: [phone]), no apparent distress noted, denies any pain or discomfort, able to make needs known, can follow simple commands, no chest pain, no dizziness, no palpitations, no change in level of consciousness. Abdominal bowel sound present in all quadrants, no grimacing when abdomen palpated, no abdominal distention noted. Patient made aware of the situation, patient unable to sign discharge paperwork and inventory list, all belongings taken by patient, 2 RNs signed discharge paperwork and inventory list. Health teaching provided, verbalized understanding and gratitude. Skin intact, warm to touch, no pallor or cyanosis noted. Patient was noted to have scab on her lips, scab on left leg, old surgical scar on abdomen, right and left forearm discolorations, but patient preferred not to have a photo taken during discharge, explained the risks and benefits and purpose of taking pictures still strongly refused thrice, respected patient's wishes. [place] catheter removed prior to discharge as per MD order, richards catheter complete, no bleeding noted, no unusual odor, no unusual discharge, no bladder distention, no grimacing when bladder palpated and patient was able to void, no hematuria. Peripheral IV on right hand was removed by prior to discharge, complete, site covered with dry dressing, no excessive bleeding noted. Name wristband removed prior to discharge. [facility] ambulance came to picker / packer patient. Patient left unit at 1630pm, stable condition, surgical facial mask and exit care folder with paperworks given to ambulance staffs.
== END 2021-11-30 16:30 | DRG 393 ==
LOC: ER 13:43 → MED 19:45
PROVIDERS: ADMIT Nurse Practitioner Acute Care; ATTEND Legal Medicine
DX: K62.89 Other specified diseases of anus and rectum (principal); G93.41 Metabolic encephalopathy; J90 Pleural effusion, not elsewhere classified; I31.3 Pericardial effusion (noninflammatory); G95.9 Disease of spinal cord, unspecified; K57.30 Diverticulosis of large intestine without perforation or abscess without bleeding; I25.10 Atherosclerotic heart disease of native coronary artery without angina pectoris; I16.0 Hypertensive urgency; E78.5 Hyperlipidemia, unspecified; F32.9 Major depressive disorder, single episode, unspecified; E03.9 Hypothyroidism, unspecified; Z79.01 Long term (current) use of anticoagulants; Z79.899 Other long term (current) drug therapy; R91.1 Solitary pulmonary nodule; Z85.9 Personal history of malignant neoplasm, unspecified; I10 Essential (primary) hypertension; F03.90 Unspecified dementia, unspecified severity, without behavioral disturbance, psychotic disturbance, mood disturbance, and anxiety; G24.01 Drug induced subacute dyskinesia; E87.6 Hypokalemia; F41.9 Anxiety disorder, unspecified; G47.00 Insomnia, unspecified; F39 Unspecified mood [affective] disorder; I50.9 Heart failure, unspecified; R33.9 Retention of urine, unspecified; F20.9 Schizophrenia, unspecified; R63.0 Anorexia; Z68.21 Body mass index [BMI] 21.0-21.9, adult; R63.4 Abnormal weight loss
CPT/HCPCS: 36415; 71045-TC; 71250-TC; 80048-TC; 80053-TC; 80061-TC; 80076-TC; 83690-TC; 83735-TC; 84100-TC; 84443-TC; 84484-TC; 85025-TC; 87081-TC; 93307-TC; 97116-TC; 97530-TC; C9803; G0378; J2270; J2405; J2543; J3475; J3480; J7050; J7060

== ENCOUNTER 2022-01-20 09:49 | Inpatient (IN) | payer MEDICARE, OTHER ==
[~2022-01-20] VITALS: Ht 162.6 cm; Wt 72.6 kg
[~2022-01-20 09:49] MED LIST: APIX2.5T PO; BENZ0.5T43 PO; DOCU-141 PO; DONE10TA44 PO; EPLE25TA10 PO; ESCI10TA PO; HYDR-4076 PO; LEVO75TA7 PO; LORA2TAB95 PO; MEMA10TA56 PO; METO50TA16 PO; NIFE-35 PO; ONDA-97 PO; POTA20TA83 PO; QUET25TA PO; ZOLP12.52 PO
--- NOTE | 2022-01-20 10:00 | NUR ---
RECEVED PT 81 YRS FEMALE CAME FROM HOME accopany by speedy C/O john novoa
--- NOTE | 2022-01-20 10:15 | NUR ---
MOVE SHEET SUBMITTED.
--- NOTE | 2022-01-20 10:17 | NUR ---
CALLED DR. MATHUR
[2022-01-20] MEDS ORDERED: ONDANSETRON HCL/PF 4 MG/2 ML VIAL ONE (10:19)
[2022-01-20] MEDS ORDERED: EPLE25TA10 PO (10:25)
[2022-01-20] MEDS ORDERED: CLON0.2T PO (10:25)
[2022-01-20] MEDS ORDERED: PANT40TA49 PO (10:25)
[2022-01-20] MEDS ORDERED: SERT50TA PO (10:25)
[2022-01-20] MEDS ORDERED: LEVE500T9 PO (10:25)
[2022-01-20] MEDS ORDERED: IV NS 0.9% 500 ML BAG IV ONE (10:30)
[2022-01-20] MEDS ORDERED: ONDANSETRON HCL/PF 4 MG/2 ML VIAL IVP ONE (10:30)
[2022-01-20 10:36] LABS: BASOPHILS % (AUTO) 0.3 % (0.0-2.0); EOSINOPHILS % (AUTO) 1.8 % (0.0-6.0); HEMATOCRIT 28 % (33-45); HEMOGLOBIN 9.1 g/dL (11.5-14.8); LYMPHOCYTES # (AUTO) 1.2 K/uL (0.8-4.8); LYMPHOCYTES % (AUTO) 16.4 % (20.0-44.0); MEAN CORPUSCULAR HGB CONC 33 g/dl (31.0-36.0); MEAN CORPUSCULAR VOLUME 79 fL (82-100); MONOCYTES # (AUTO) 0.4 K/uL (0.1-1.30); MONOCYTES % (AUTO) 5.2 % (2.0-12.0); NEUTROPHILS # (AUTO) 5.5 K/uL (1.8-8.9); NEUTROPHILS % (AUTO) 76.3 % (43.0-81.0); PLATELET COUNT (AUTO) 251 K/uL (150-450); RED BLOOD CELL COUNT(AUTO) 3.54 MIL/uL (4.0-5.2); WHITE BLOOD COUNT (AUTO) 7.1 K/uL (4.3-11.0)
--- NOTE | 2022-01-20 10:40 | NUR ---
I&O CATHETER DONE 300ML YELLOW COUDY COLOR UA SENT TO LAB
[2022-01-20 10:50] LABS: ALBUMIN 3.4 g/dL (3.4-5.0); BILIRUBIN,DIRECT 0.2 mg/dL (0.0-0.2); BILIRUBIN,TOTAL 0.7 mg/dL (0.2-1.0); CALCIUM, SERUM 8.4 mg/dL (8.5-10.1); CREATININE 1.3 mg/dL (0.6-1.3)
[2022-01-20 10:54] LABS: POTASSIUM 2.7 mmol/L (3.5-5.1)
--- NOTE | 2022-01-20 10:56 | NUR ---
TAKEN TO CT VIA JEFF[place]
--- NOTE | 2022-01-20 11:13 | NUR ---
CALLED DR. MATHUR
--- NOTE | 2022-01-20 11:25 | NUR ---
COVID SWAB DONE AND SENT TO LAB
[2022-01-20] MEDS ORDERED: ONDANSETRON HCL/PF 4 MG/2 ML VIAL IVP PRN (12:00)
[2022-01-20] MEDS ORDERED: ACETAMINOPHEN 325 MG TABLET PO PRN (12:00)
[2022-01-20] MEDS: NITROGLYCERIN 0.1 MG/HR PATCH.TD24 TD SCH (12:00)
[2022-01-20 12:06] LABS: BILIRUBIN,URINE NEGATIVE (NEGATIVE); COLOR,URINE YELLOW (YELLOW); LEUKOCYTE ESTERASE ,URINE NEGATIVE (NEGATIVE); NITRITE, URINE POSITIVE (NEGATIVE); PROTEIN,URINE NEGATIVE (NEGATIVE); UGLUCOSE NEGATIVE (NEGATIVE); UROBILINOGEN,URINE 0.2 EU/dL (0.2)
--- NOTE | 2022-01-20 12:45 | NUR ---
resting and asleepy wating for telmetry room
[2022-01-20 13:06] LABS: RBC,URINE NONE SEEN /HPF (0-2); SQUAMOUS EPITHELIAL CELL,UR Rare /HPF (None Seen); WBC,URINE 0-2 /HPF (0-3)
[2022-01-20 13:10] LABS: BACTERIA,URINE Few /HPF (None Seen)
--- NOTE | 2022-01-20 13:15 | NUR ---
BED 315-1
--- NOTE | 2022-01-20 14:11 | NUR ---
HAND OFF DELIA DEVINE PT ADMIT TO TELMETRY BED
--- NOTE | 2022-01-20 14:18 | NUR ---
TO ROOM 315-1 ANTOINE SHAW STABLE CONDITION
--- NOTE | 2022-01-20 15:00 | NUR ---
TRANSFERRED TO BED 315 IN STABLE CONDITION
--- NOTE | 2022-01-20 15:10 | NUR ---
MARKETING SERVICES COORDINATOR NOTE- 81 Y/O FEMALE PATIENT ADMITTED FOR CHEST PAIN. ALERT ORIENTED TO PERSON PLACE PURPOSE. VS - BP- 157/64, HR- 50, RR- 20, T- 98.0 SATS AT 99% RA. PTS K- 2.7 IN ED. PT GIVEN IVF 20G RT WRIST. UA NEG FOR UTI. PMHX- HTN, CAD, HLD, CAD, DEMENTIA AND CHRONIC PAIN SYNDROME. PT ALSO HAS MAJOR DEPRESSIVE DO. ORDERS RECEIVED AND COMPLIED WITH, SIDE RAILS UP, BED LOCKED, CALL LIGHT IN REACH, MADE COMFORTABLE. MONITOR / ASSIST
[2022-01-20] MEDS: LEVETIRACETAM (250 MG) 250 MG TABLET PO SCH (16:54)
[2022-01-20] MEDS: BENZTROPINE MESYLATE (1 MG) 1 MG TABLET PO SCH (16:54)
[2022-01-20] MEDS: DOCUSATE SODIUM 100 MG CAPSULE PO SCH (16:54)
[2022-01-20] MEDS: METOPROLOL TARTRATE 50 MG TABLET PO SCH (16:55)
[2022-01-20] MEDS: hydrALAZINE HCL 25 MG TABLET PO SCH (16:55)
[2022-01-20] MEDS: APIXABAN 2.5 MG TABLET PO SCH (16:57)
[2022-01-20] MEDS: DONEPEZIL 5 MG TABLET PO SCH (17:54)
[2022-01-20] MEDS: LORAZEPAM 1 MG TABLET PO SCH (17:54)
--- NOTE | 2022-01-20 18:33 | NUR ---
RN CLOSING NOTE- PT IN BED, EATING DINNER, EKG STAT RESULTS SENT TO DR DOWNING FOR EVAL, PO INTAKE FAIR, MED COMPLIANT, NEEDS ATTENDED, DENIES CHEST PAIN AT PRESENT, TELE - SR 64, SIDE RAILS UP, BED LOCKED, CALL LIGHT IN REACH, MONITOR / ASSIST
[2022-01-20] MEDS: HYDROCODONE/APAP 5/325MG TABLET PO PRN (18:53)
--- NOTE | 2022-01-20 18:54 | NUR ---
RN NOTE- PT W C/O PAIN ABDOMEN. ASSISTED TO BR. FULLER BM. NORCO TABLET ADMINISTERED
--- NOTE | 2022-01-20 19:44 | NUR ---
RN OPENING NOTES PT RECEIVED IN BED [id number].ARIANA WELL ON RM AIR NO SIGN SOB/DISTRESS NOTED.IV SITE ON R WRIST 20G PATENT AND INTACT.SAFETY MEASURE IN PLACE.CALL LIGHT IN REACH,CONTINUE TO MONITOR.
[2022-01-20 20:00] VITALS: BP_SYST 120; BP_SYST 124; BP_DIAS 65; BP_DIAS 69
[2022-01-20] MEDS: CLONIDINE HCL 0.1 MG TABLET PO SCH (20:09)
[2022-01-20] MEDS: ZOLPIDEM TARTRATE 5 MG TABLET PO PRN (21:24)
[2022-01-20 22:00] VITALS: BP 120/65
--- NOTE | 2022-01-20 22:32 | NUR ---
rn notes 2232=I texted GILSON MACIASBAN[facility] CENTERKimberley regarding lab result patassium 2.7.he responce will checked tommorow.
[2022-01-21] VITALS: BP 124/59
[2022-01-21 00:11] VITALS: BP 120/65
[2022-01-21 04:00] VITALS: BP 136/74
[2022-01-21 06:20] LABS: BASOPHILS # (AUTO) 0.1 K/uL (0.0-0.2); BASOPHILS % (AUTO) 0.9 % (0.0-2.0); EOSINOPHILS % (AUTO) 3.1 % (0.0-6.0); HEMATOCRIT 25 % (33-45); HEMOGLOBIN 8.3 g/dL (11.5-14.8); LYMPHOCYTES # (AUTO) 1.8 K/uL (0.8-4.8); LYMPHOCYTES % (AUTO) 31.1 % (20.0-44.0); MEAN CORPUSCULAR HGB CONC 33 g/dl (31.0-36.0); MEAN CORPUSCULAR VOLUME 80 fL (82-100); MONOCYTES # (AUTO) 0.4 K/uL (0.1-1.30); NEUTROPHILS # (AUTO) 3.4 K/uL (1.8-8.9); NEUTROPHILS % (AUTO) 57.9 % (43.0-81.0); PLATELET COUNT (AUTO) 223 K/uL (150-450); RED BLOOD CELL COUNT(AUTO) 3.16 MIL/uL (4.0-5.2); WHITE BLOOD COUNT (AUTO) 5.8 K/uL (4.3-11.0)
--- NOTE | 2022-01-21 06:33 | NUR ---
RN CLOSING NOTES PT IN BED SLEEPING ARIANA WELL ON RM AIR NO SIGN SOB/DISTRESS NOTED.ALL DUE MEDS GIVEN ORDER.IV SITE ON R WRIST 20G PATENT AND INTACT.ALL NEEDS ATTENDED.SAFETY MEASURE IN PLACE.CALL LIGHT IN REACH,WILL ENDORSED TO NEXT SHIFT.
[2022-01-21 06:55] LABS: ALBUMIN 3.3 g/dL (3.4-5.0); BILIRUBIN,TOTAL 0.6 mg/dL (0.2-1.0); CALCIUM, SERUM 7.9 mg/dL (8.5-10.1); CREATININE 1.2 mg/dL (0.6-1.3); MAGNESIUM 1.8 mg/dL (1.8-2.4); PHOSPHORUS 3.6 mg/dL (2.5-4.9); TOTAL PROTEIN, SERUM 6.5 g/dL (6.4-8.2)
--- NOTE | 2022-01-21 07:20 | NUR ---
RN OPENING NOTES RECEIVED PATIENT IN BED, AWAKE, ALERT AND VERBALLY RESPONSIVE.NO SIGNS OF ACUTE DISTRESS NOTED. ON ROOM AIR,TOLERATING WELL,NO SOB NOTED, BREATHING EVEN AND UNLABORED. NOTED WITH IV ACCESS ON RIGHT WRIST #20G, INTACT AND PATENT,SALINE LOCKED. SAFETY MEASURE IN PLACE.BED IN LOWEST AND LOCKED POSITION, SIDE RAILS UP X2, CALL LIGHT PLACED WITHIN EASY REACH. WILL CONTINUE TO MONITOR PATIENT.
[2022-01-21 07:54] LABS: POTASSIUM 2.8 mmol/L (3.5-5.1)
[2022-01-21] MEDS: PANTOPRAZOLE 40 MG TABLET.DR PO SCH (08:17)
[2022-01-21] MEDS: BENZTROPINE MESYLATE (1 MG) 1 MG TABLET PO SCH ×2 (08:17→16:38)
[2022-01-21] MEDS: LEVOTHYROXINE SODIUM 75 MCG TABLET PO SCH (08:17)
[2022-01-21] MEDS: ESCITALOPRAM OXALATE (10 MG) 10 MG TABLET PO SCH (08:17)
[2022-01-21] MEDS: DOCUSATE SODIUM 100 MG CAPSULE PO SCH ×2 (08:18→16:38)
[2022-01-21] MEDS: METOPROLOL TARTRATE 50 MG TABLET PO SCH ×2 (08:18→16:39)
[2022-01-21] MEDS: hydrALAZINE HCL 25 MG TABLET PO SCH ×2 (08:18→16:39)
[2022-01-21] MEDS: ASPIRIN EC 81 MG TABLET.DR PO SCH (08:18)
[2022-01-21] MEDS: MEMANTINE HCL 5 MG TABLET PO SCH (08:18)
[2022-01-21] MEDS: CLONIDINE HCL 0.1 MG TABLET PO SCH ×2 (08:19→20:35)
[2022-01-21] MEDS: LEVETIRACETAM (250 MG) 250 MG TABLET PO SCH ×2 (08:23→16:38)
[2022-01-21] MEDS: APIXABAN 2.5 MG TABLET PO SCH ×2 (08:23→16:40)
[2022-01-21 08:29] LABS: THYROID STIMULATING HORMONE 92.93 uIU/mL (0.358-3.74)
[2022-01-21] MEDS: POTASSIUM CHLORIDE 20 MEQ TAB.PRT.SR PO SCH ×2 (08:53→10:43)
[2022-01-21] MEDS: NITROGLYCERIN 0.1 MG/HR PATCH.TD24 TD SCH (12:32)
[2022-01-21] MEDS: DONEPEZIL 5 MG TABLET PO SCH (17:31)
[2022-01-21] MEDS: LORAZEPAM 1 MG TABLET PO SCH (17:31)
--- NOTE | 2022-01-21 18:48 | NUR ---
RN CLOSING NOTES PATIENT IN BED, AWAKE, A/O X1, NO SIGNS OF ACUTE DISTRESS NOTED. REMAINS STABLE ON ROOM AIR, NO SOB NOTED, BREATHING EVEN AND UNLABORED. NO S/SX OF PAIN OR DISCOMFORT. IV ACCESS ON RIGHT UPPER ARM MIDLINE #18G, INTACT AND PATENT, SALINE LOCKED. ALL DUE MEDS GIVEN, TOLERATED WELL. ATE 75% OF DINNER. SAFETY MEASURE IN PLACE. BED IN LOCKED AND LOWEST POSITION, SIDE RAILS UP X2, CALL LIGHT PLACED WITHIN EASY REACH. WILL ENDORSE TO NEXT SHIFT FOR CONTINUITY OF CARE. Addendum: 01/21/22 at 1850 by DAYNE RAMIREZ RN *WRONG CHART*
--- NOTE | 2022-01-21 18:51 | NUR ---
RN CLOSING NOTES PATIENT IN BED, AWAKE, VERBALLY RESPONSIVE.NO SIGNS OF ACUTE DISTRESS NOTED. REMAINS STABLE ON ROOM AIR,TOLERATING WELL,NO SOB NOTED, BREATHING EVEN AND UNLABORED. IV ACCESS ON RIGHT WRIST #20G, INTACT AND PATENT, SALINE LOCKED. ON TELEMONITOR WITH CURRENT READING SHOWING SINUS LJ, HR @55. ALL DUE MEDS GIVEN, TOLERATED WELL. SAFETY MEASURE IN PLACE.BED IN LOWEST AND LOCKED POSITION, SIDE RAILS UP X2, CALL LIGHT PLACED WITHIN EASY REACH. WILL ENDORSE TO NEXT SHIFT FOR CONTINUITY OF CARE.
[2022-01-21 20:00] VITALS: BP 122/55
[2022-01-21] MEDS: ZOLPIDEM TARTRATE 5 MG TABLET PO PRN (21:30)
--- NOTE | 2022-01-21 22:43 | NUR ---
MS/TELE/RN PATIENT IS SLEEPING AT THIS TIME, APPEARS COMFORTABLE, NO SIGNS OF DISTRESS NOTED, CALL LIGHT IN REACH, WILL CONTINUE TO MONITOR.
[2022-01-22] VITALS: BP 143/70
[2022-01-22] MEDS: HYDROCODONE/APAP 5/325MG TABLET PO PRN (02:03)
[2022-01-22 04:00] VITALS: BP 159/59
--- NOTE | 2022-01-22 06:35 | NUR ---
MS/TELE/RN PATIENT IS SLEEPING, APPEARS COMFORTABLE, NO SIGNS OF DISTRESS NOTED, ALL NEEDS ATTENDED AT THIS TIME, WILL CONTINUE TO MONITOR.
[2022-01-22] MEDS: CLONIDINE HCL 0.1 MG TABLET PO SCH ×2 (08:33→20:35)
[2022-01-22] MEDS: METOPROLOL TARTRATE 50 MG TABLET PO SCH ×2 (08:33→17:00)
[2022-01-22] MEDS: LEVETIRACETAM (250 MG) 250 MG TABLET PO SCH ×2 (08:34→16:52)
[2022-01-22] MEDS: ASPIRIN EC 81 MG TABLET.DR PO SCH (08:34)
[2022-01-22] MEDS: BENZTROPINE MESYLATE (1 MG) 1 MG TABLET PO SCH ×2 (08:34→16:52)
[2022-01-22] MEDS: ESCITALOPRAM OXALATE (10 MG) 10 MG TABLET PO SCH (08:35)
[2022-01-22] MEDS: DOCUSATE SODIUM 100 MG CAPSULE PO SCH ×2 (08:35→16:53)
[2022-01-22] MEDS: PANTOPRAZOLE 40 MG TABLET.DR PO SCH (08:35)
[2022-01-22] MEDS: hydrALAZINE HCL 25 MG TABLET PO SCH ×4 (08:36→17:00)
[2022-01-22] MEDS: LEVOTHYROXINE SODIUM 75 MCG TABLET PO SCH (08:36)
[2022-01-22] MEDS: APIXABAN 2.5 MG TABLET PO SCH ×2 (08:37→16:57)
[2022-01-22] MEDS: MEMANTINE HCL 5 MG TABLET PO SCH (08:56)
[2022-01-22 09:40] LABS: BASOPHILS % (AUTO) 0.4 % (0.0-2.0); EOSINOPHILS % (AUTO) 3.9 % (0.0-6.0); HEMATOCRIT 26 % (33-45); HEMOGLOBIN 8.4 g/dL (11.5-14.8); LYMPHOCYTES # (AUTO) 1.6 K/uL (0.8-4.8); LYMPHOCYTES % (AUTO) 38.5 % (20.0-44.0); MEAN CORPUSCULAR HGB CONC 32 g/dl (31.0-36.0); MEAN CORPUSCULAR VOLUME 80 fL (82-100); MONOCYTES # (AUTO) 0.4 K/uL (0.1-1.30); MONOCYTES % (AUTO) 8.8 % (2.0-12.0); NEUTROPHILS % (AUTO) 48.4 % (43.0-81.0); PLATELET COUNT (AUTO) 211 K/uL (150-450); RED BLOOD CELL COUNT(AUTO) 3.24 MIL/uL (4.0-5.2); WHITE BLOOD COUNT (AUTO) 4.1 K/uL (4.3-11.0)
[2022-01-22 09:51] LABS: CALCIUM, SERUM 8.6 mg/dL (8.5-10.1); POTASSIUM 4.3 mmol/L (3.5-5.1)
[2022-01-22 09:58] LABS: ALBUMIN 3.3 g/dL (3.4-5.0); BILIRUBIN,TOTAL 0.5 mg/dL (0.2-1.0); MAGNESIUM 1.9 mg/dL (1.8-2.4); TOTAL PROTEIN, SERUM 6.6 g/dL (6.4-8.2)
[2022-01-22 10:09] LABS: THYROID STIMULATING HORMONE 89.571 uIU/mL (0.358-3.74)
[2022-01-22 12:00] VITALS: BP 115/50
[2022-01-22] MEDS: NITROGLYCERIN 0.1 MG/HR PATCH.TD24 TD SCH (12:00)
[2022-01-22] MEDS: SOD FERRIC GLUC 125 MG in IV NS 0.9% 100 ML IV SCH (13:51)
--- NOTE | 2022-01-22 15:52 | NUR ---
IV INFILTRATED ,REMOVED AND RESTARTED IN LT. FOREARM #22 GA.
[2022-01-22 16:00] VITALS: BP 135/54
[2022-01-22] MEDS: LORAZEPAM 1 MG TABLET PO SCH (17:56)
[2022-01-22] MEDS: DONEPEZIL 5 MG TABLET PO SCH (17:56)
--- NOTE | 2022-01-22 18:00 | NUR ---
poor appetite most of day
--- NOTE | 2022-01-22 19:51 | NUR ---
RN OPENING NOTE PATIENT AWAKE IN BED. A/OX2. NO S/S OF DISTRESS, BREATHING ON ROOM AIR W/O DIFFICULTY. LFA #22 INTACT AND PATENT. TELE MONITOR REVEALS SB 48. SAFETY MEASURES IN PLACE: BED LOCKED, AT LOWEST POSITION, RAILS UP X3, CALL LAWSON WITHIN REACH. WILL CONTINUE TO MONITOR PATIENT.
[2022-01-22 20:00] VITALS: BP 151/64
[2022-01-22] MEDS: ZOLPIDEM TARTRATE 5 MG TABLET PO PRN (22:00)
[2022-01-23] VITALS: BP 177/65
[2022-01-23] MEDS: hydrALAZINE HCL IV 20 MG VIAL IV PRN (05:08)
--- NOTE | 2022-01-23 06:16 | NUR ---
RN NOTE PATIENT HAD HER 0400 VS TAKEN. BP WAS 180/76. MONUMENT INSTALLERDILEEP, ALERTED THIS RN. I WENT TO RE-CHECK BY HAND AND FOUND PATIENT HAD 170/76 W/ HR 60. ON-CALL RANDALL KING, CONTACTED FOR ANY ORDERS. ORDER WAS GIVEN TO ADMINISTER HYDRALAZINE 10MG IVP PRN SBP >160. AFTER MED ORDER WAS PLACED AND VERIFIED BY PHARMACY, MED WAS ADMINISTERED. CURRENT BP 160/70 W/ HR 60. PATIENT HAS CATAPRES LATER THIS MORNING. PATIENT STABLE; WILL CONTINUE TO MONITOR PATIENT.
[2022-01-23] MEDS: LEVOTHYROXINE SODIUM 75 MCG TABLET PO SCH (06:44)
[2022-01-23] MEDS: PANTOPRAZOLE 40 MG TABLET.DR PO SCH (06:44)
--- NOTE | 2022-01-23 07:35 | NUR ---
RN CLOSING NOTE PATIENT AWAKE IN BED. A/OX2. NO S/S OF DISTRESS; BREATHING ON RM AIR W/O DIFFICULTY. R-WRIST #20 SL INTACT AND PATENT. TELE MONITOR REVEALS SR 67. BED LOCKED, AT LOWEST POSITION, RAILS UP X2, CALL LAWSON WITHIN REACH. REPORT GIVEN TO AND ACKNOWLEDGED BY SHELLEY VILLALOBOS IRAJ.
[2022-01-23] MEDS: ESCITALOPRAM OXALATE (10 MG) 10 MG TABLET PO SCH (09:54)
[2022-01-23] MEDS: MEMANTINE HCL 5 MG TABLET PO SCH (09:54)
[2022-01-23] MEDS: ASPIRIN EC 81 MG TABLET.DR PO SCH (09:54)
[2022-01-23] MEDS: BENZTROPINE MESYLATE (1 MG) 1 MG TABLET PO SCH ×2 (09:55→18:24)
[2022-01-23] MEDS: NIFEdipine XL (30MG) 30 MG TAB PO SCH (09:55)
[2022-01-23] MEDS: ISOSORBIDE DINITRATE (20MG) 20 MG TABLET PO SCH ×2 (09:55→17:00)
[2022-01-23] MEDS: APIXABAN 2.5 MG TABLET PO SCH ×2 (09:56→18:26)
[2022-01-23] MEDS: DOCUSATE SODIUM 100 MG CAPSULE PO SCH ×2 (09:56→18:25)
[2022-01-23] MEDS: hydrALAZINE HCL 25 MG TABLET PO SCH ×3 (09:56→17:00)
[2022-01-23] MEDS: LEVETIRACETAM (250 MG) 250 MG TABLET PO SCH ×2 (09:57→18:24)
[2022-01-23] MEDS: METOPROLOL TARTRATE 50 MG TABLET PO SCH ×2 (09:57→18:26)
--- NOTE | 2022-01-23 13:49 | NUR ---
1300 HYDRALAZINE 100MG PO WITHHELD DUE TO LOW BP OF 107/60. WILL CONTINUE TO MONITOR PATIENT.
[2022-01-23] MEDS: SOD FERRIC GLUC 125 MG in IV NS 0.9% 100 ML IV SCH (15:13)
[2022-01-23] MEDS: LORAZEPAM 1 MG TABLET PO SCH (18:25)
[2022-01-23] MEDS: ENSURE ENLIVE 237 ML LIQUID (VANILLA) PO SCH (18:27)
[2022-01-23] MEDS: DONEPEZIL 5 MG TABLET PO SCH (18:28)
--- NOTE | 2022-01-23 18:28 | NUR ---
ISORDIL AND HYDRALAZINE WITHHELD DUE TO LOW BP OF 112/54, HR- 64. WILL CONTINUE TO MONITOR PATIENT.
--- NOTE | 2022-01-23 19:41 | NUR ---
RN OPENING NOTES RECEIVED PT IN BED, AWAKE. AOx2. ON RA AND TOLERATING WELL. NO SOB NOTED. NO S/SX OF RESPIRATORY DISTRESS NOTED. IV NOT CURRENTLY PRESENT. WILL ATTEMPT TO INSERT. SAFETY PRECAUTIONS IN PLACE: BED IN LOWEST, LOCKED POSITION, SIDERAILS UPx2, AND BRAKES ON. TABLE AND CALL LIGHT WITHIN REACH. WILL CONTINUE TO MONITOR.
[2022-01-23 20:00] VITALS: BP 116/47
[2022-01-23] MEDS: ZOLPIDEM TARTRATE 5 MG TABLET PO PRN (21:02)
--- NOTE | 2022-01-23 21:04 | NUR ---
RN NOTES ADMINISTERED AMBIEN PER PT REQUEST. VS WNL. WILL CONTINUE TO MONITOR.
--- NOTE | 2022-01-24 06:54 | NUR ---
RN CLOSING NOTES PT IN BED, ASLEEP, AWAKENS TO VERBAL STIMULI. AOx3. ON RA AND TOLERATING WELL. NO SOB NOTED. NO S/SX OF RESPIRATORY DISTRESS NOTED. IV ACCESS IN LFA #22G. IV IS INTACT, PATENT, AND FLUSHING WELL. ALL ORDERS CARRIED OUT. ALL NEEDS MET. PT KEPT CLEAN AND DRY. SAFETY PRECAUTIONS IN PLACE: BED IN LOWEST, LOCKED POSITION, SIDERAILS UPx2, AND BRAKES ON. TABLE AND CALL LIGHT WITHIN REACH. WILL ENDORSE TO ONCOMING SHIFT FOR IRAJ.
[2022-01-24] MEDS: PANTOPRAZOLE 40 MG TABLET.DR PO SCH (07:30)
[2022-01-24] MEDS: LEVOTHYROXINE SODIUM 75 MCG TABLET PO SCH (07:30)
--- NOTE | 2022-01-24 07:40 | NUR ---
MS RN OPENING NOTES RECEIVED PT IN BED, ASLEEP, AWAKEN EASILY, A/Ox2. PATIENT ON ROOM AIR; TOLERATING WELL. NO SOB NOTED. NO S/SX OF RESPIRATORY DISTRESS. COMPLAINING OF UPPER ABDOMINAL PAIN, REFUSES TYLENOL. IV ACCESS ON LFA G #22, PRESENT AND INTACT. SAFETY PRECAUTIONS IN PLACE: BED IN LOW AND LOCKED POSITION, SIDE RAILS UP X2, CALL LIGHT WITHIN REACH. WILL CONTINUE TO MONITOR PATIENT.
[2022-01-24] MEDS: ENSURE ENLIVE 237 ML LIQUID (VANILLA) PO SCH ×3 (08:00→17:46)
[2022-01-24] MEDS: METOPROLOL TARTRATE 50 MG TABLET PO SCH ×2 (09:00→16:53)
[2022-01-24] MEDS: APIXABAN 2.5 MG TABLET PO SCH ×2 (09:00→16:15)
[2022-01-24] MEDS: MEMANTINE HCL 5 MG TABLET PO SCH (09:00)
[2022-01-24] MEDS: NIFEdipine XL (30MG) 30 MG TAB PO SCH (09:00)
[2022-01-24] MEDS: DOCUSATE SODIUM 100 MG CAPSULE PO SCH ×2 (09:00→16:18)
[2022-01-24] MEDS: ASPIRIN EC 81 MG TABLET.DR PO SCH (09:00)
[2022-01-24] MEDS: ISOSORBIDE DINITRATE (20MG) 20 MG TABLET PO SCH ×2 (09:00→16:19)
[2022-01-24] MEDS: hydrALAZINE HCL 25 MG TABLET PO SCH ×3 (09:00→16:20)
[2022-01-24] MEDS: ESCITALOPRAM OXALATE (10 MG) 10 MG TABLET PO SCH (09:00)
[2022-01-24] MEDS: BENZTROPINE MESYLATE (1 MG) 1 MG TABLET PO SCH ×2 (09:00→16:53)
[2022-01-24] MEDS: LEVETIRACETAM (250 MG) 250 MG TABLET PO SCH (09:00)
--- NOTE | 2022-01-24 09:00 | NUR ---
MS RN NOTES PATIENT REFUSES HER PO MEDS. REFUSES PO PAIN MEDICATION WELL DUE TO UPPER ABDOMINAL PAIN. MD CONTACTED FOR POSSIBLE IV PAIN MEDICATION.
[2022-01-24] MEDS ORDERED: LEVETIRACETAM (500MG) 500 MG in IV NS 0.9% 100 ML IV SCH (12:30)
[2022-01-24] MEDS: MORPHINE SULFATE INJ 2 MG/ML DISP.SYRIN IV PRN ×3 (12:34→22:51)
--- NOTE | 2022-01-24 12:36 | NUR ---
MS RN NOTES PATIENT COMPLAINING OF UPPER ABDOMINAL PAIN 8 OUT OF 10. REQUESTING PAIN MEDICATION. PRN MORPHINE ADMINISTERED. WILL REASSESS.
[2022-01-24] MEDS: LEVETIRACETAM (500MG) 750 MG in IV NS 0.9% 100 ML IV SCH (14:47)
[2022-01-24] MEDS ORDERED: LEVOTHYROXINE INJ 100 MCG VIAL IV SCH (15:00)
--- NOTE | 2022-01-24 15:48 | NUR ---
MS RN NOTES REPORT GIVEN TO VICTORINA DEVINE FOR CONTINUITY OF CARE
[2022-01-24] MEDS: SOD FERRIC GLUC 125 MG in IV NS 0.9% 100 ML IV SCH (16:02)
[2022-01-24] MEDS: PIPERACILLIN /TAZOBACTAM 3.375 G in IV D5W 50 ML IV SCH (17:46)
[2022-01-24] MEDS: DONEPEZIL 5 MG TABLET PO SCH (18:09)
[2022-01-24] MEDS: LORAZEPAM 1 MG TABLET PO SCH (18:09)
--- NOTE | 2022-01-24 18:43 | NUR ---
RN closing note Patient is in bed , alert , oriented times 3, confused. .Patient is on room air , breathing un labored , no sighs of distress, last pain medication was given at 1630 , at this time patient denies any pain or discomfort. Patient has IV acsess of the LFA 22 g , flushed with 10 cc of the NS , no sighs of infiltration. All medications were given , all nedds were met . Bed is at lowest position , bed side rails are up , call light within reack , bed alarm is on .
--- NOTE | 2022-01-24 19:49 | NUR ---
RN OPENING NOTE PATIENT AWAKE IN BED. A/OX1. NO S/S OF DISTRESS, BREATHING W/O DIFFICULTY ON RM AIR. LFA #22 SL INTACT AND PATENT. SAFETY MEASURES IN PLACE: BED LOCKED, AT LOWEST POSITION, RAILS UP X3, CALL [place] WITHIN REACH. WILL CONTINUE TO MONITOR PATIENT.
[2022-01-24 20:00] VITALS: BP 151/76
[2022-01-24] MEDS: ZOLPIDEM TARTRATE 5 MG TABLET PO PRN (21:42)
[2022-01-25] MEDS: PIPERACILLIN /TAZOBACTAM 3.375 G in IV D5W 50 ML IV SCH ×2 (00:22→05:41)
[2022-01-25] MEDS: LEVETIRACETAM (500MG) 750 MG in IV NS 0.9% 100 ML IV SCH ×3 (00:52→21:24)
[2022-01-25] MEDS: MORPHINE SULFATE INJ 2 MG/ML DISP.SYRIN IV PRN ×2 (05:36→08:58)
[2022-01-25 06:22] LABS: BASOPHILS % (AUTO) 0.4 % (0.0-2.0); EOSINOPHILS % (AUTO) 1.7 % (0.0-6.0); HEMATOCRIT 29 % (33-45); HEMOGLOBIN 9.9 g/dL (11.5-14.8); LYMPHOCYTES % (AUTO) 27.7 % (20.0-44.0); MEAN CORPUSCULAR HGB CONC 34 g/dl (31.0-36.0); MEAN CORPUSCULAR VOLUME 82 fL (82-100); MONOCYTES # (AUTO) 0.7 K/uL (0.1-1.30); MONOCYTES % (AUTO) 9.8 % (2.0-12.0); NEUTROPHILS # (AUTO) 4.3 K/uL (1.8-8.9); NEUTROPHILS % (AUTO) 60.4 % (43.0-81.0); PLATELET COUNT (AUTO) 295 K/uL (150-450); RED BLOOD CELL COUNT(AUTO) 3.59 MIL/uL (4.0-5.2)
[2022-01-25 06:25] LABS: ALBUMIN 3.7 g/dL (3.4-5.0); BILIRUBIN,TOTAL 0.9 mg/dL (0.2-1.0); CALCIUM, SERUM 8.9 mg/dL (8.5-10.1); CREATININE 1.1 mg/dL (0.6-1.3); MAGNESIUM 1.8 mg/dL (1.8-2.4); PHOSPHORUS 3.4 mg/dL (2.5-4.9); TOTAL PROTEIN, SERUM 7.7 g/dL (6.4-8.2)
--- NOTE | 2022-01-25 06:58 | NUR ---
RN CLOSING NOTE PATIENT ASLEEP IN BED. A/OX1. NO S/S OF DISTRESS, BREATHING W/O DIFFICULTY ON RM AIR. LFA #22 SL INTACT AND PATENT. SAFETY MEASURES IN PLACE: BED LOCKED, IN LOWEST POSITION, RAILS UP X2, CALL LAWSON WITHIN REACH. REPORT GIVEN TO AND ACKNOWLEDGED BY VINNY RN, LEE, FOR IRAJ.
[2022-01-25 08:00] VITALS: BP 191/84
[2022-01-25] MEDS: ENSURE ENLIVE 237 ML LIQUID (VANILLA) PO SCH ×3 (08:00→17:51)
[2022-01-25] MEDS: DOCUSATE SODIUM 100 MG CAPSULE PO SCH ×2 (08:57→17:51)
[2022-01-25] MEDS: NIFEdipine XL (30MG) 30 MG TAB PO SCH (08:58)
[2022-01-25] MEDS: hydrALAZINE HCL 25 MG TABLET PO SCH ×3 (08:58→17:00)
[2022-01-25] MEDS: BENZTROPINE MESYLATE (1 MG) 1 MG TABLET PO SCH ×2 (08:59→17:49)
[2022-01-25] MEDS: ISOSORBIDE DINITRATE (20MG) 20 MG TABLET PO SCH ×2 (08:59→17:00)
[2022-01-25] MEDS: ESCITALOPRAM OXALATE (10 MG) 10 MG TABLET PO SCH (08:59)
[2022-01-25] MEDS: MEMANTINE HCL 5 MG TABLET PO SCH (08:59)
[2022-01-25] MEDS: ASPIRIN EC 81 MG TABLET.DR PO SCH (08:59)
[2022-01-25] MEDS: METOPROLOL TARTRATE 50 MG TABLET PO SCH ×2 (08:59→17:00)
[2022-01-25] MEDS: LEVOTHYROXINE SODIUM 100 MCG TABLET PO SCH (09:02)
[2022-01-25] MEDS: PANTOPRAZOLE 40 MG TABLET.DR PO SCH (09:02)
[2022-01-25] MEDS: APIXABAN 2.5 MG TABLET PO SCH ×2 (09:03→17:51)
[2022-01-25] MEDS ORDERED: POTASSIUM CHLORIDE 20 MEQ TAB.PRT.SR PO SCH (10:00)
--- NOTE | 2022-01-25 10:01 | NUR ---
RN OPENING NOTE PATIENT AWAKE IN BED. A/OX1. NO S/S OF DISTRESS, BREATHING W/O DIFFICULTY ON RM AIR. LFA #22 SL INTACT AND PATENT. SAFETY MEASURES IN PLACE: BED LOCKED, AT LOWEST POSITION, RAILS UP X3, CALL LAWSON WITHIN REACH.
[2022-01-25 11:52] VITALS: BP 150/70
[2022-01-25] MEDS: oxyCODONE/APAP (5/325 MG) 1 UDTAB TABLET PO PRN (14:34)
[2022-01-25] MEDS: SOD FERRIC GLUC 125 MG in IV NS 0.9% 100 ML IV SCH (15:12)
[2022-01-25 16:00] VITALS: BP 110/50
[2022-01-25 16:12] VITALS: BP 110/50
[2022-01-25] MEDS: DONEPEZIL 5 MG TABLET PO SCH (17:48)
[2022-01-25] MEDS: LORAZEPAM 1 MG TABLET PO SCH (17:49)
--- NOTE | 2022-01-25 18:44 | NUR ---
RN CLOSING NOTE PATIENT RESTING IN BED . A/OX1. NO S/S OF DISTRESS, BREATHING W/O DIFFICULTY ON RM AIR. LFA #22 SL INTACT AND PATENT. SAFETY MEASURES IN PLACE: BED LOCKED, IN LOWEST POSITION, RAILS UP X2, CALL LAWSON WITHIN REACH. WILL ENDORSE TO NIGHT NURSE FOR IRAJ.
--- NOTE | 2022-01-25 19:36 | NUR ---
RN OPENING NOTE PATIENT AWAKE IN BED. A/OX. NO S/S OF DISTRESS, BREATHING W/O DIFFICULTY ON RM AIR. LFA #22 SL INTACT AND PATENT. SAFETY MEASURES IN PLACE: BED LOCKED, AT LOWEST POSITION, RAILS UP X2, CALL LAWSON WITHIN REACH. WILL CONTINUE TO MONITOR PATIENT.
[2022-01-25 20:00] VITALS: BP 133/62
[2022-01-25] MEDS: ZOLPIDEM TARTRATE 5 MG TABLET PO PRN (21:24)
--- NOTE | 2022-01-26 06:24 | NUR ---
RN CLOSING NOTE PATIENT ASLEEP IN BED. A/OX1. NO S/S OF DISTRESS; BREATHING W/O DIFFICULTY ON ROOM AIR. LFA #22 SL INTACT AND PATENT. SAFETY MEASURES IN PLACE: BED LOCKED, RAILS UP X2, CALL LAWSON WITHIN REACH. WILL ENDORSE TO NEXT SHIFT FOR IRAJ.
[2022-01-26] MEDS: LEVOTHYROXINE SODIUM 100 MCG TABLET PO SCH (06:35)
[2022-01-26] MEDS: PANTOPRAZOLE 40 MG TABLET.DR PO SCH (06:35)
[2022-01-26 08:00] VITALS: BP 187/82
--- NOTE | 2022-01-26 08:28 | NUR ---
MS RN OPENING NOTE Patient in bed, asleep. A/O x 1, confused. On room air, breathing evenly and unlabored. No SOB or s/s of distress noted. IV access on LFA #22 SL, intact and patent. Safety precautions in place: bed in low, locked position; siderails up x 2; call ight6 within reach. Will continue to monitor.
[2022-01-26 08:46] LABS: CARBON DIOXIDE 26 mmol/L (21-32); CHLORIDE 97 mmol/L (98-107); CREATININE 0.8 mg/dL (0.6-1.3); GLUCOSE 121 mg/dL (74-106); POTASSIUM 3.3 mmol/L (3.5-5.1); SODIUM SERUM 133 mmol/L (136-145); UREA NITROGEN, BLOOD 9 mg/dL (7-18)
[2022-01-26 08:50] LABS: CALCIUM, SERUM 8.8 mg/dL (8.5-10.1)
[2022-01-26] MEDS: NIFEdipine XL (30MG) 30 MG TAB PO SCH (08:52)
[2022-01-26] MEDS: METOPROLOL TARTRATE 50 MG TABLET PO SCH ×2 (08:53→17:00)
[2022-01-26] MEDS: hydrALAZINE HCL 25 MG TABLET PO SCH ×3 (08:53→17:00)
[2022-01-26] MEDS: oxyCODONE/APAP (5/325 MG) 1 UDTAB TABLET PO PRN ×2 (08:54→21:07)
[2022-01-26] MEDS: ISOSORBIDE DINITRATE (20MG) 20 MG TABLET PO SCH ×2 (08:54→17:00)
[2022-01-26] MEDS: DOCUSATE SODIUM 100 MG CAPSULE PO SCH ×2 (08:55→17:48)
[2022-01-26] MEDS: MEMANTINE HCL 5 MG TABLET PO SCH (08:55)
[2022-01-26] MEDS: BENZTROPINE MESYLATE (1 MG) 1 MG TABLET PO SCH ×2 (08:55→17:48)
[2022-01-26] MEDS: ESCITALOPRAM OXALATE (10 MG) 10 MG TABLET PO SCH (08:55)
[2022-01-26] MEDS: ASPIRIN EC 81 MG TABLET.DR PO SCH (08:55)
[2022-01-26] MEDS: APIXABAN 2.5 MG TABLET PO SCH ×2 (08:56→17:50)
[2022-01-26] MEDS: LEVETIRACETAM (500MG) 750 MG in IV NS 0.9% 100 ML IV SCH (09:04)
[2022-01-26] MEDS: ENSURE ENLIVE 237 ML LIQUID (VANILLA) PO SCH ×3 (09:05→17:49)
[2022-01-26] MEDS ORDERED: LACT-246 PO (12:05)
[2022-01-26] MEDS ORDERED: NIFE-35 PO (12:05)
[2022-01-26] MEDS ORDERED: OXYC1TAB8 PO (12:05)
[2022-01-26] MEDS ORDERED: ISOS20TA8 PO (12:05)
[2022-01-26] MEDS ORDERED: POTASSIUM CHLORIDE 20 MEQ TAB.PRT.SR PO ONE (12:30)
--- NOTE | 2022-01-26 12:43 | NUR ---
RN NOTE Patient's BP this AM was 187/82, BP meds scheduled for AM given. BP rechecked at 1200, 109/51 Hydralazine 100 mg scheduled for 1300 held. Will continue to monitor patient.
[2022-01-26] MEDS: SOD FERRIC GLUC 125 MG in IV NS 0.9% 100 ML IV SCH (14:27)
[2022-01-26 16:00] VITALS: BP 101/52
--- NOTE | 2022-01-26 17:44 | NUR ---
RN NOTE Patient's BP is 101/52, BP medications scheduled for 1700 held. Bassam, charge nurse aware.
[2022-01-26] MEDS: DONEPEZIL 5 MG TABLET PO SCH (17:48)
[2022-01-26] MEDS: LORAZEPAM 1 MG TABLET PO SCH (17:53)
--- NOTE | 2022-01-26 18:46 | NUR ---
MS RN CLOSING NOTES PATIENT IN BED , AWAKE A/O X1 , ABLE TO MAKE NEEDS KNOWN , NO SOB ABD DISTRESS NOTED , ABLE TO TOLERATE MEDS AND ATB GIVEN , WAS SEEN BY CRISIS TEAM AND EVALUATEC , PER CRISIS TEAM NEEDS TO TALK TO SON REGARDING THE TRANSFER TO GPS , PATIENT NO BEHAVIOR OF SUICIDAL IDEATION AT THIS TIME , WILL ENDORSE TO NEXT SHIFT
[2022-01-26 20:00] VITALS: BP 134/59
--- NOTE | 2022-01-26 20:21 | NUR ---
MS/TELE/RN RECEIVED PATIENT LYING IN BED AWAKE, ALERT AND ORIENTED, NO C/O PAIN AT THIS TIME, NO SIGNS OF DISTRESS NOTED, CALL LIGHT IN REACH, FALL PRECAUTIONS PER PROTOCOL IMPLEMENTED, ALL NEEDS ATTENDED, WILL MONITOR.
--- NOTE | 2022-01-26 21:00 | NUR ---
Grand son called in to question why his grandmother was eval. and going to be going to [facility]. reassured him that before we move her to anywhere her Son would ne notified and detail would be given. That at this time she is not going to the [facility] unit she staying on the M/S floor no room change. He is concerned about her c/o ABD Pain and wants an answer. Told him he needed to speak to the MD Told him her Labs look good and that she will take pills at times and she does eat but little and slow. He comment that she has been to many hospitals c/o of ABD pain and no answer. CT of the ABD was done and showed no acute findings, I did not tell the Grandson this D/T I felt he wanted more details.
[2022-01-26] MEDS: LEVETIRACETAM (250 MG) 250 MG TABLET PO SCH (21:06)
--- NOTE | 2022-01-26 21:24 | NUR ---
MS/TELE/RN PATIENT ENDORSED TO NILSON NANCE, FOR CONTINUITY OF CARE.
--- NOTE | 2022-01-26 23:20 | NUR ---
alert orientated to self smiling will answer simple question correctly assisted with cleaning and repositioning skin intact turned to her right side
--- NOTE | 2022-01-27 05:43 | NUR ---
closing notes: ALERT / ORIENTATED X! PLEASANT AND COOPERATIVE INCONTINENT UA AND BM KEPT CLEAN AND DRY REPOSITIONED USING PILLOW FOR POSITIONING POSSIBLE D/C HOME TODAY NO C/P THIS 12NHOURS C/O LEG PAIN MEDICATED WITH PERSOCET AND EFFECTIVE
[2022-01-27 08:00] VITALS: BP 180/90
[2022-01-27] MEDS: NIFEdipine XL (30MG) 30 MG TAB PO SCH (08:34)
[2022-01-27] MEDS: DOCUSATE SODIUM 100 MG CAPSULE PO SCH ×2 (08:34→17:57)
[2022-01-27] MEDS: LEVETIRACETAM (250 MG) 250 MG TABLET PO SCH ×2 (08:34→20:55)
[2022-01-27] MEDS: hydrALAZINE HCL 25 MG TABLET PO SCH ×3 (08:34→17:00)
[2022-01-27] MEDS: MEMANTINE HCL 5 MG TABLET PO SCH (08:34)
[2022-01-27] MEDS: METOPROLOL TARTRATE 50 MG TABLET PO SCH ×2 (08:35→17:00)
[2022-01-27] MEDS: ESCITALOPRAM OXALATE (10 MG) 10 MG TABLET PO SCH (08:35)
[2022-01-27] MEDS: PANTOPRAZOLE 40 MG TABLET.DR PO SCH (08:35)
[2022-01-27] MEDS: ISOSORBIDE DINITRATE (20MG) 20 MG TABLET PO SCH ×2 (08:35→17:00)
[2022-01-27] MEDS: ASPIRIN EC 81 MG TABLET.DR PO SCH (08:35)
[2022-01-27] MEDS: BENZTROPINE MESYLATE (1 MG) 1 MG TABLET PO SCH ×2 (08:35→17:57)
[2022-01-27] MEDS: LEVOTHYROXINE SODIUM 100 MCG TABLET PO SCH (08:36)
[2022-01-27] MEDS: ENSURE ENLIVE 237 ML LIQUID (VANILLA) PO SCH ×3 (08:36→17:59)
[2022-01-27] MEDS: APIXABAN 2.5 MG TABLET PO SCH ×2 (08:37→17:58)
--- NOTE | 2022-01-27 09:33 | NUR ---
MS RN OPENING NOTE Patient in bed, awake. A/O x 1, confused. On room air, breathing evenly and unlabored. No SOB or s/s of distress noted. IV access on LFA #22 SL, intact and patent. Safety precautions in place: bed in low, locked position; siderails up x 2; call ight6 within reach. Will continue to monitor.
--- NOTE | 2022-01-27 12:45 | NUR ---
RN NOTE Patient's BP this AM was 180/90, AM BP meds was given. BP now is 116/56, scheduled hydralazine 100 mg held. Bassam, charge nurse, aware.
[2022-01-27 16:00] VITALS: BP 102/52
--- NOTE | 2022-01-27 17:00 | NUR ---
RN NOTE Patient's BP medications scheduled for 1700 held, BP is 102/52.
[2022-01-27] MEDS: LORAZEPAM 1 MG TABLET PO SCH (17:57)
[2022-01-27] MEDS: DONEPEZIL 5 MG TABLET PO SCH (17:57)
--- NOTE | 2022-01-27 18:51 | NUR ---
MS RN CLOSING NOTE Patient in bed, awake. A/O x 1, confused. Stable on room air, breathing evenly and unlabored. No SOB or s/s of distress noted. IV access on LFA #22 SL, intact and patent. Patient ate her meals and was compliant with her medications. All needs attended to. Due meds given. Safety precautions in place: bed in low, locked position; siderails up x 2; call ight6 within reach. Will endorse to operations supervisor 2nd shift nurse for IRAJ.
[2022-01-27 20:00] VITALS: BP 100/58
--- NOTE | 2022-01-27 20:00 | NUR ---
MS RN NOTES RECEIVED LAYING COMFORTABLY ON BED,BREATHING EASY,NO SOB,ABLE TO FOLLOW INSTRUCTION,AMBULATE WITH WALKER,FALL RISK,BED ON LOW POSITION AND LOCKED,BED ALAR,.CALL LIGHT IN REACH,NEEDS ANTICIPATED.
[2022-01-27] MEDS: ZOLPIDEM TARTRATE 5 MG TABLET PO PRN (22:53)
--- NOTE | 2022-01-27 22:53 | NUR ---
MS RN NOTES C/O INSOMNIA,AMBIEN 5MG PO GIVEN ORDERED,PER PATIENT REQUEST.FALL PRECAUTION OBSERVED,BED ALARM.BED ON LOW POSITION AND LOCKED.
--- NOTE | 2022-01-28 05:00 | NUR ---
MS RN NOTES BLOOD PRESSURE 180/100,HR-73,HYDRALAZINE 10MG IV GIVEN SLOWLY ORDERED.WILL RECHECK BLOOD PRESSURE IN 30 MINUTES.
[2022-01-28] MEDS: hydrALAZINE HCL IV 20 MG VIAL IV PRN (05:06)
--- NOTE | 2022-01-28 05:40 | NUR ---
MS RN NOTES LATEST BLOOD PRESSURE 151/68,DENIES HEADACHE,NO ABDOMINAL PAIN
--- NOTE | 2022-01-28 06:43 | NUR ---
MS RN NOTES FAIRLY RESTED AT NIGHT.BLOOD PRESSURE IMPROVED WITH HYDRALAZINE,ASSIST WITH ADL'S,NO FALL,NO INJURY.IN NO ACUTE DISTRESS.
[2022-01-28] MEDS: PANTOPRAZOLE 40 MG TABLET.DR PO SCH (07:42)
[2022-01-28] MEDS: ENSURE ENLIVE 237 ML LIQUID (VANILLA) PO SCH ×3 (07:42→17:45)
[2022-01-28] MEDS: LEVOTHYROXINE SODIUM 100 MCG TABLET PO SCH (07:42)
--- NOTE | 2022-01-28 07:57 | NUR ---
MS RN OPENING NOTES RECEIVED PATIENT IN BED, AWAKE, A/O X1. PATIENT ON ROOM AIR; BREATHING EVEN AND UNLABORED; NO SOB NOTED AT THIS TIME. COMPLAINING OF UPPER ABDOMINAL PAIN. PAIN IS TREATED WITH PRN PAIN MEDICATION PER MD ORDER. IV ACCESS IN LFA G # 22, HL. SAFETY PRECAUTIONS IN PLACE; BED IN LOW POSITION AND LOCKED, RAILS UP X2, CALL LIGHT WITHIN REACH. WILL CONTINUE TO MONITOR PATIENT.
[2022-01-28 08:00] VITALS: BP 180/63
[2022-01-28] MEDS: MEMANTINE HCL 5 MG TABLET PO SCH (08:51)
[2022-01-28] MEDS: LEVETIRACETAM (250 MG) 250 MG TABLET PO SCH ×2 (08:51→21:11)
[2022-01-28] MEDS: ASPIRIN EC 81 MG TABLET.DR PO SCH (08:51)
[2022-01-28] MEDS: BENZTROPINE MESYLATE (1 MG) 1 MG TABLET PO SCH ×2 (08:52→17:40)
[2022-01-28] MEDS: ESCITALOPRAM OXALATE (10 MG) 10 MG TABLET PO SCH (08:52)
[2022-01-28] MEDS: DOCUSATE SODIUM 100 MG CAPSULE PO SCH ×2 (08:52→17:40)
[2022-01-28] MEDS: ISOSORBIDE DINITRATE (20MG) 20 MG TABLET PO SCH ×2 (08:53→17:39)
[2022-01-28] MEDS: METOPROLOL TARTRATE 50 MG TABLET PO SCH ×2 (08:53→17:40)
[2022-01-28] MEDS: NIFEdipine XL (30MG) 30 MG TAB PO SCH (08:54)
[2022-01-28] MEDS: APIXABAN 2.5 MG TABLET PO SCH ×2 (08:56→17:42)
[2022-01-28] MEDS: hydrALAZINE HCL 25 MG TABLET PO SCH ×3 (09:00→17:00)
[2022-01-28 12:55] LABS: CALCIUM, SERUM 8.7 mg/dL (8.5-10.1)
[2022-01-28 16:21] VITALS: BP 125/61
[2022-01-28] MEDS: DONEPEZIL 5 MG TABLET PO SCH (17:39)
[2022-01-28] MEDS: LORAZEPAM 1 MG TABLET PO SCH (17:39)
--- NOTE | 2022-01-28 18:51 | NUR ---
MS RN CLOSING NOTES PATIENT REMAINS IN BED, AWAKE, A/O X1. PATIENT ON ROOM AIR; BREATHING EVEN AND UNLABORED; NO SOB NOTED DURING THE DAY. IV ACCESS IN LFA G # 22, HL. ALL NEEDS ATTENDED DURING THE DAY. SAFETY PRECAUTIONS IN PLACE; BED IN LOW POSITION AND LOCKED, RAILS UP X2, CALL LIGHT WITHIN REACH. WILL ENDORSE TO COUNTY BAILIFF NURSE FOR IRAJ.
--- NOTE | 2022-01-28 19:35 | NUR ---
MS RN OPENING NOTES PATIENT REMAINS IN BED, AWAKE, A/O X1. PATIENT ON ROOM AIR; BREATHING EVEN AND UNLABORED; NO SOB NOTED DURING THE DAY. IV ACCESS IN LFA G # 22, HL. ALL NEEDS ATTENDED AT THIS TIME.. SAFETY PRECAUTIONS IN PLACE; BED IN LOW POSITION AND LOCKED, RAILS UP X2, CALL LIGHT WITHIN REACH. WILL CONTINUE TO MONITOR.
[2022-01-28 20:00] VITALS: BP 150/75
[2022-01-28] MEDS: oxyCODONE/APAP (5/325 MG) 1 UDTAB TABLET PO PRN (21:25)
--- NOTE | 2022-01-28 21:56 | NUR ---
ms rn notes prn pain medication given and tolerated well. will continue to monitor.
[2022-01-28] MEDS: ZOLPIDEM TARTRATE 5 MG TABLET PO PRN (23:04)
--- NOTE | 2022-01-28 23:09 | NUR ---
MS RN NOTES PT REQUESTED SLEEPING PILL SLEEPING PILL PROVIDED TOLERATED WELL.. WILL CONTINUE TO MONITOR.
--- NOTE | 2022-01-29 06:54 | NUR ---
MS RN CLOSING NOTES PATIENT REMAINS IN BED, AWAKE, A/O X2-3 FORGETFUL BUT ABLE TO MAKE NEEDS KNOWN. PATIENT ON ROOM AIR; BREATHING EVEN AND UNLABORED; NO SOB NOTED DURING THE NIGHT. IV ACCESS IN LFA G # 22, HL. ALL NEEDS ATTENDED AT THIS TIME. SAFETY PRECAUTIONS IN PLACE; BED IN LOW POSITION AND LOCKED, RAILS UP X2, CALL LIGHT WITHIN REACH. WILL ENDORSE CARE TO DAY SHIFT NURSE.
--- NOTE | 2022-01-29 07:40 | NUR ---
RN OPENING NOTE PATIENT RECEIVED IN BED SLEEPING. A/O X2-3. NO RESPIRATORY DISTRESS, SOB, OR PAIN OBSERVED. IV ACCESS TO LFA REMAINS INTACT AND FLUSHING WELL. SALINE LOCKED AT THIS TIME. SAFETY MEASURES REMAIN IN PLACE WITH BED AT LOWEST POSITION AND LOCKED. SIDERAILS UP X3 AND CALL LIGHT WITHIN REACH. BED ALARM ACTIVATED AND IN USE FOR ADDED SAFETY AND DUE TO PATIENT BEING MILD FALL RISK. WILL CONTINUE TO MONITOR.
[2022-01-29 08:00] VITALS: BP 177/94
[2022-01-29] MEDS: MEMANTINE HCL 5 MG TABLET PO SCH (09:39)
[2022-01-29] MEDS: NIFEdipine XL (30MG) 30 MG TAB PO SCH (09:40)
[2022-01-29] MEDS: LEVETIRACETAM (250 MG) 250 MG TABLET PO SCH ×2 (09:41→21:32)
[2022-01-29] MEDS: LEVOTHYROXINE SODIUM 100 MCG TABLET PO SCH (09:41)
[2022-01-29] MEDS: ASPIRIN EC 81 MG TABLET.DR PO SCH (09:41)
[2022-01-29] MEDS: DOCUSATE SODIUM 100 MG CAPSULE PO SCH ×2 (09:41→17:07)
[2022-01-29] MEDS: ISOSORBIDE DINITRATE (20MG) 20 MG TABLET PO SCH ×2 (09:41→17:07)
[2022-01-29] MEDS: PANTOPRAZOLE 40 MG TABLET.DR PO SCH (09:42)
[2022-01-29] MEDS: hydrALAZINE HCL 25 MG TABLET PO SCH ×3 (09:42→17:07)
[2022-01-29] MEDS: METOPROLOL TARTRATE 50 MG TABLET PO SCH ×2 (09:43→17:08)
[2022-01-29] MEDS: ESCITALOPRAM OXALATE (10 MG) 10 MG TABLET PO SCH (09:44)
[2022-01-29] MEDS: BENZTROPINE MESYLATE (1 MG) 1 MG TABLET PO SCH ×2 (09:44→17:06)
[2022-01-29] MEDS: ENSURE ENLIVE 237 ML LIQUID (VANILLA) PO SCH ×3 (09:53→17:18)
[2022-01-29] MEDS: APIXABAN 2.5 MG TABLET PO SCH ×2 (09:59→17:19)
[2022-01-29] MEDS: oxyCODONE/APAP (5/325 MG) 1 UDTAB TABLET PO PRN (12:56)
--- NOTE | 2022-01-29 13:00 | NUR ---
RN NOTE PATIENT C/O SEVERE PAIN IN LEFT UPPER ABDOMINAL QUADRANT. REQUESTED PAIN MEDICATION. GIVEN PRN PERCOCET. WILL CONTINUE TO MONITOR.
[2022-01-29 16:00] VITALS: BP 133/66
[2022-01-29] MEDS: DONEPEZIL 5 MG TABLET PO SCH (17:07)
[2022-01-29] MEDS: LORAZEPAM 1 MG TABLET PO SCH (17:19)
--- NOTE | 2022-01-29 18:45 | NUR ---
RN CLOSING NOTE PATIENT REMAINS A/O X2-3. CONTINUES TO APPEAR CONFUSED REGARDING CARE GIVEN, SHE DOES NOT REMEMBER RECEIVING MEDICATIONS SECONDS AFTER THEY ARE GIVEN. PATIENT IS AMBULATORY WITH ASSISTANCE, AND IS ABLE TO VERBALIZE THE NEED TO USE THE TOILET.COMPLAINED OF SEVERE PAIN TO LEFT UPPER GASTRIC/ABDOMINAL AREA; RECEIVED PRN PAIN MEDICATION PERCOCET @ 1300. MEDICATION EFFECTIVE PATIENT NO LONGER COMPLAINED OF PAIN. TOLERATED ALL SCHEDULED MEDICATIONS WELL. IV ACCESS TO LFA REMAINED INTACT, PATENT, AND SALINE LOCKED. SAFETY MEASURES CONTINUE IN PLACE WITH BED IN LOWEST POSITION AND LOCKED. SIDERAIL UP X3, CALL LIGHT WITHIN REACH. WILL CONTINUE TO MONITOR.
--- NOTE | 2022-01-29 19:50 | NUR ---
RN OPENING NOTE PATIENT AWAKE IN BED. A/OX3. NO S/S OF DISTRESS, BREATHING W/O DIFFICULTY ON ROOM AIR. LFA #22 SL INTACT AND PATENT. SAFETY MEASURES IN PLACE: BED LOCKED, AT LOWEST POSITION, RAILS UP X3, CALL LAWSON WITHIN REACH. WILL CONTINUE TO MONITOR PATIENT.
[2022-01-29 20:00] VITALS: BP 122/63
[2022-01-29] MEDS: ZOLPIDEM TARTRATE 5 MG TABLET PO PRN (21:32)
--- NOTE | 2022-01-30 06:32 | NUR ---
RN CLOSING NOTE PATIENT ASLEEP IN BED. A/OX2. NO S/S OF DISTRESS, BREATHING W/O DIFFICULTY ON ROOM AIR. LFA #22 SL INTACT AND PATENT. SAFETY MEASURES IN PLACE: BED LOCKED, AT LOWEST POSITION, RAILS UP X3, CALL LAWSON WITHIN REACH. WILL ENDORSE TO NEXT SHIFT FOR IRAJ.
--- NOTE | 2022-01-30 07:30 | NUR ---
RN OPENING NOTES RECEIVED PATIENT IN BED RESTING. AWAKENS EASILY. A/O X2. ON RA WITH NO S/SX OF RESP DISTRESS NOTED. NO COMPLAINT OF PAIN AT THIS TIME. SAFETY PRECAUTIONS IN PLACE. WILL CONTINUE TO MONITOR
[2022-01-30] MEDS: MEMANTINE HCL 5 MG TABLET PO SCH (09:08)
[2022-01-30] MEDS: NIFEdipine XL (30MG) 30 MG TAB PO SCH (09:08)
[2022-01-30] MEDS: LEVETIRACETAM (250 MG) 250 MG TABLET PO SCH ×2 (09:08→20:03)
[2022-01-30] MEDS: hydrALAZINE HCL 25 MG TABLET PO SCH ×3 (09:09→17:59)
[2022-01-30] MEDS: ESCITALOPRAM OXALATE (10 MG) 10 MG TABLET PO SCH (09:09)
[2022-01-30] MEDS: ISOSORBIDE DINITRATE (20MG) 20 MG TABLET PO SCH ×2 (09:10→17:59)
[2022-01-30] MEDS: BENZTROPINE MESYLATE (1 MG) 1 MG TABLET PO SCH ×2 (09:10→18:00)
[2022-01-30] MEDS: ASPIRIN EC 81 MG TABLET.DR PO SCH (09:10)
[2022-01-30] MEDS: METOPROLOL TARTRATE 50 MG TABLET PO SCH ×2 (09:10→17:59)
[2022-01-30] MEDS: APIXABAN 2.5 MG TABLET PO SCH ×2 (09:11→18:00)
[2022-01-30] MEDS: PANTOPRAZOLE 40 MG TABLET.DR PO SCH (09:11)
[2022-01-30] MEDS: ENSURE ENLIVE 237 ML LIQUID (VANILLA) PO SCH ×3 (09:12→18:01)
[2022-01-30] MEDS: DOCUSATE SODIUM 100 MG CAPSULE PO SCH ×2 (09:15→17:58)
[2022-01-30] MEDS: LEVOTHYROXINE SODIUM 100 MCG TABLET PO SCH (09:15)
[2022-01-30] MEDS: DONEPEZIL 5 MG TABLET PO SCH (17:58)
[2022-01-30 17:59] VITALS: BP 123/65
[2022-01-30] MEDS: LORAZEPAM 1 MG TABLET PO SCH (17:59)
--- NOTE | 2022-01-30 19:30 | NUR ---
MS RN OPENING NOTE RECEIVED PATIENT IN BED, A/OX2. NO S/S OF APPARENT DISTRESS. C/O PAIN IN HER STOMACH-- PATIENT JUST HAD BM. PATIENT'S ABDOMEN HARD TO PAL-
--- NOTE | 2022-01-30 19:33 | NUR ---
RN CLOSING NOTES ENDORSED REPORT TO THE RESAW OPERATOR NURSE FOR IRAJ
--- NOTE | 2022-01-30 19:53 | NUR ---
MS RN OPENING NOTE RECEIVED PATIENT IN BED, A/OX2. NO S/S OF APPARENT DISTRESS. C/O PAIN IN HER STOMACH-- PATIENT JUST HAD BM. PATIENT'S ABDOMEN HARD TO PALPITATE. NO FLUIDS RUNNING AT THIS TIME. PATIENT FOR DISCHARGE. SAFETY IN PLACE. WILL CONTINUE WITH PATIENT'S PLAN OF CARE.
[2022-01-30] MEDS: oxyCODONE/APAP (5/325 MG) 1 UDTAB TABLET PO PRN (20:05)
--- NOTE | 2022-01-30 20:33 | NUR ---
MS POULTRY AND FISH BUTCHER NOTE PATIENT BROUGHT DOWN AT THIS TIME ACCOMPANIED BY DICK HETAH VIA WHEELCHAIR. LEAVING VIA PRIVATE VEHICLE WITH STRUCTURAL ARCHITECT, SINCE SON LESLIE COULD NOT MAKE IT. PATIENT IS ALERT AND ORIENTED X2, NO S/S OF APPARENT DISTRESS IN ROOM AIR AND NO C/O PAIN AT THIS TIME. GIVEN PEROCET 5 BEFORE D/C ENDORSED. ID BAND DISCARDED. IV LINE TAKEN OFF. DISCHARGE PAPERS SIGNED BY PATIENT FINANCIAL COUNSELOR, PATIENT HAD NO BELONGINGS FROM ADMISSION. LEFT IN HER PERSONNAL CLOTHES MAURI BY PATIENT FINANCIAL COUNSELOR. DISCHARGE V/S FOLLOWS: 132/57, HR-71, RR-20, T-98.6, SATURATION 97%. LEFT AT THIS TIME.
== END 2022-01-30 20:40 | disposition home health service (06) | DRG 206 ==
LOC: ER 09:58 → TELE 14:05 → MED 01-23 13:23
PROVIDERS: ADMIT Legal Medicine; ATTEND Legal Medicine
DX: M94.0 Chondrocostal junction syndrome [Tietze] (principal); K57.32 Diverticulitis of large intestine without perforation or abscess without bleeding; E87.1 Hypo-osmolality and hyponatremia; G89.4 Chronic pain syndrome; E03.9 Hypothyroidism, unspecified; I25.10 Atherosclerotic heart disease of native coronary artery without angina pectoris; E78.5 Hyperlipidemia, unspecified; I10 Essential (primary) hypertension; Z79.01 Long term (current) use of anticoagulants; Z79.899 Other long term (current) drug therapy; F03.90 Unspecified dementia, unspecified severity, without behavioral disturbance, psychotic disturbance, mood disturbance, and anxiety; K52.9 Noninfective gastroenteritis and colitis, unspecified; K59.09 Other constipation; D63.8 Anemia in other chronic diseases classified elsewhere; D50.9 Iron deficiency anemia, unspecified; E87.6 Hypokalemia; F32.9 Major depressive disorder, single episode, unspecified; Z87.891 Personal history of nicotine dependence; D17.9 Benign lipomatous neoplasm, unspecified
CPT/HCPCS: 36415; 71045-TC; 80048-TC; 80053-TC; 80061-TC; 80076-TC; 81001; 83540-TC; 83690-TC; 83735-TC; 84100-TC; 84439-TC; 84443-TC; 84484-TC; 85025-TC; 87081-TC; 87086-TC; 97112-TC; 97530-TC; C9803; G0378; J0360; J1953; J2270; J2405; J2543; J2916; J7030; J7040; J7060

== ENCOUNTER 2022-05-07 18:19 | Inpatient (IN) | payer MEDICARE, OTHER ==
[~2022-05-07] VITALS: Ht 165.1 cm; Wt 54.4 kg
[~2022-05-07 18:19] MED LIST changes: +CLON0.2T PO; -DOCU-141 PO; +LEVE500T9 PO; -NIFE-35 PO; -ONDA-97 PO; +PANT40TA49 PO; -POTA20TA83 PO; -QUET25TA PO; +SERT50TA PO; -ZOLP12.52 PO
--- NOTE | 2022-05-07 19:33 | NUR ---
MAHAD FOR MID EPIGASTRIC PAIN X2 HOURS. DENIES N/V. BROUGHT IN VIA WHEELCHAIR, PLACED ON BED, AWAKE ALERT RESPONDING TO VERBAL STINULI, BREATHING EVEN AND UNLABORED SATURATING AT 98%RA. IN PAIN 5/10 PS.
--- NOTE | 2022-05-07 20:19 | NUR ---
URINE COLLECTED SENT TO LAB
[2022-05-07] MEDS ORDERED: FAMOTIDINE/PF INJ 20 MG/2 ML VIAL IV ONE ×2 (20:20→20:30)
[2022-05-07] MEDS ORDERED: IV NS 0.9% 500 ML IV ONE (20:30)
--- NOTE | 2022-05-07 20:35 | NUR ---
SQUARE SHEAR OPERATOR AT BEDSIDE
[2022-05-07 20:53] LABS: BASOPHILS % (AUTO) 0.2 % (0.0-2.0); EOSINOPHILS % (AUTO) 0.3 % (0.0-6.0); HEMATOCRIT 31 % (33-45); HEMOGLOBIN 10.3 g/dL (11.5-14.8); LYMPHOCYTES % (AUTO) 13.2 % (20.0-44.0); MEAN CORPUSCULAR HGB CONC 33 g/dl (31.0-36.0); MEAN CORPUSCULAR VOLUME 105 fL (82-100); MONOCYTES # (AUTO) 0.4 K/uL (0.1-1.30); MONOCYTES % (AUTO) 4.7 % (2.0-12.0); NEUTROPHILS # (AUTO) 6.5 K/uL (1.8-8.9); NEUTROPHILS % (AUTO) 81.6 % (43.0-81.0); PLATELET COUNT (AUTO) 316 K/uL (150-450); RED BLOOD CELL COUNT(AUTO) 2.97 MIL/uL (4.0-5.2); WHITE BLOOD COUNT (AUTO) 7.9 K/uL (4.3-11.0)
[2022-05-07 21:11] LABS: CALCIUM, SERUM 8.6 mg/dL (8.5-10.1); CARBON DIOXIDE 25 mmol/L (21-32); CHLORIDE 105 mmol/L (98-107); GLUCOSE 63 mg/dL (74-106); POTASSIUM 3.7 mmol/L (3.5-5.1); SODIUM SERUM 138 mmol/L (136-145); UREA NITROGEN, BLOOD 13 mg/dL (7-18)
[2022-05-07 21:13] LABS: SERUM AMMONIA 7 umol/L (11-32)
[2022-05-07 21:17] LABS: ALANINE AMINOTRANSFERASE 9 U/L (12-78); ALBUMIN 3.3 g/dL (3.4-5.0); ALKALINE PHOSPHATASE 105 U/L (46-116); ASPARTATE AMINOTRANSFERASE 13 U/L (15-37); BILIRUBIN,DIRECT 0.1 mg/dL (0.0-0.2); BILIRUBIN,TOTAL 0.4 mg/dL (0.2-1.0); TOTAL PROTEIN, SERUM 7.1 g/dL (6.4-8.2)
[2022-05-07 21:32] LABS: ALKALINE PHOSPHATASE 106 U/L (46-116); LIPASE 73 U/L (73-393)
[2022-05-07 21:41] LABS: BILIRUBIN,URINE NEGATIVE (NEGATIVE); COLOR,URINE YELLOW (YELLOW); LEUKOCYTE ESTERASE ,URINE TRACE (NEGATIVE); NITRITE, URINE POSITIVE (NEGATIVE); PROTEIN,URINE NEGATIVE (NEGATIVE); UGLUCOSE NEGATIVE (NEGATIVE); UROBILINOGEN,URINE 0.2 EU/dL (0.2)
[2022-05-07 21:46] LABS: LYMPHOCYTES % (MANUAL) 14 % (16-48); MONOCYTES % (MANUAL) 2 % (0-11.0); NEUTROPHILS % (MANUAL) 84 (42-76)
[2022-05-07 21:49] LABS: BACTERIA,URINE 4+ /HPF (None Seen); RBC,URINE 0-2 /HPF (0-2); SQUAMOUS EPITHELIAL CELL,UR 0-2 /HPF (None Seen)
[2022-05-07] MEDS ORDERED: CEFTRIAXONE 1 G in IV D5W 50 ML IV SCH (22:30)
[2022-05-07] MEDS ORDERED: CEFTRIAXONE 1GM BAG (ER ONLY) 50 ML IV ONE (22:35)
--- NOTE | 2022-05-07 22:49 | NUR ---
MAY CONTACT (SON) SHELBIANA- [phone]
--- NOTE | 2022-05-07 23:00 | NUR ---
POND SCALER AT BEDSIDE
[2022-05-07] MEDS ORDERED: IOHEXOL-300 100 ML VIAL IV ONE (23:02)
[2022-05-07] MEDS ORDERED: CT SWABBABLE VALVE TRANS SET 1 EA INFUS.SET MC ONE (23:02)
[2022-05-07] MEDS ORDERED: IV NS 0.9% 250 ML IV ONE (23:02)
--- NOTE | 2022-05-07 23:27 | NUR ---
[facility]
--- NOTE | 2022-05-07 23:44 | NUR ---
PT BACK FROM CT SCAN, RECONNECTED TO MONITOR
[2022-05-08] MEDS ORDERED: METRONIDAZOLE 500MG/ NS 100ML 500 MG in PREMIX 1 EA IV SCH ×2
[2022-05-08] MEDS ORDERED: METRONIDAZOLE 500MG/ NS 100ML 100 ML IV ONE (00:09)
--- NOTE | 2022-05-08 00:24 | NUR ---
COVID SWAB COLLECTED
[2022-05-08] MEDS ORDERED: HYDROCODONE/APAP 10/325MG TABLET PO PRN (01:00)
[2022-05-08] MEDS ORDERED: MAGNESIUM HYDROXIDE 30 ML UDC PO PRN (01:00)
[2022-05-08] MEDS ORDERED: MAG HYDROX/AL HYDROX/SIMETH 30 ML UDC PO PRN (01:00)
[2022-05-08] MEDS ORDERED: MORPHINE SULFATE INJ 2 MG/ML DISP.SYRIN IV PRN (01:00)
[2022-05-08] MEDS ORDERED: IV D5/0.45 NACL 1,000 ML IV ONE (01:00)
[2022-05-08] MEDS ORDERED: Z GUARD REMEDY 4 OZ OINT TP PRN (01:00)
[2022-05-08] MEDS ORDERED: ZOLPIDEM TARTRATE 5 MG TABLET ONE (04:45)
[2022-05-08] MEDS: ZOLPIDEM TARTRATE 5 MG TABLET PO PRN (04:58)
--- NOTE | 2022-05-08 05:40 | NUR ---
BED 119-2
[2022-05-08] MEDS ORDERED: MORPHINE SULFATE INJ 2 MG/ML DISP.SYRIN ONE (05:47)
--- NOTE | 2022-05-08 06:23 | NUR ---
REPORT GIVEN TO GABBIE DEVINE FOR IRAJ
--- NOTE | 2022-05-08 06:33 | NUR ---
PER NURSE SUP, MOVE UNTIL DAY SHIFT
[2022-05-08] MEDS: LEVOTHYROXINE SODIUM 75 MCG TABLET PO SCH (07:30)
[2022-05-08] MEDS: PANTOPRAZOLE 40 MG TABLET.DR PO SCH (07:30)
[2022-05-08] MEDS ORDERED: hydrALAZINE HCL 50 MG TABLET ONE (07:54)
[2022-05-08] MEDS ORDERED: METOPROLOL TARTRATE 25 MG TABLET ONE (07:55)
[2022-05-08] MEDS: METOPROLOL TARTRATE 50 MG TABLET PO SCH ×2 (08:02→18:05)
[2022-05-08] MEDS: hydrALAZINE HCL 25 MG TABLET PO SCH ×2 (08:02→18:05)
--- NOTE | 2022-05-08 08:03 | NUR ---
Awake, responds to simple questions ie name. For admission to floor. Pt in No acute distress. Hypertensive- Dr Henry notified w/orders to give antihypertensive po meds. Transport to floor
--- NOTE | 2022-05-08 08:14 | NUR ---
PT TRANSFERRED TO FIRST FLOOR TELE, PT ABLE TO AMBULATE TO HER BED ONHER OWN. RECEIVED BY NILSON BAIG FOR [facility]
--- NOTE | 2022-05-08 08:15 | NUR ---
RN OPENING NOTE PT RECEIVED FROM ED. PT STABLE AT THIS TIME. PT IS ON RA TOLERATING WELL WITH NO SIGNS OF LABORED BREATHING OR DISTRESS. PT IS A/OX1 TELE MONITORED. IV ACCESS L AC 22G NO FLUIDS INFUSING. BED IS LOCKED IN LOWEST POSITION X3 BED RAILS UP AND ALL HOSPITAL SAFETY MEASURES ARE IN PLACE. WILL CONTINUE TO MONITOR THIS SHIFT.
[2022-05-08] MEDS: APIXABAN 2.5 MG TABLET PO SCH ×2 (09:00→18:07)
[2022-05-08] MEDS: LEVETIRACETAM (250 MG) 250 MG TABLET PO SCH ×2 (09:00→18:04)
[2022-05-08] MEDS: SERTRALINE HCL 50 MG TABLET PO SCH ×2 (09:55→18:03)
[2022-05-08] MEDS: ESCITALOPRAM OXALATE (10 MG) 10 MG TABLET PO SCH (09:56)
[2022-05-08] MEDS: MEMANTINE HCL 5 MG TABLET PO SCH (09:56)
[2022-05-08] MEDS: BENZTROPINE MESYLATE (1 MG) 1 MG TABLET PO SCH ×2 (09:58→18:06)
[2022-05-08] MEDS ORDERED: ONDA4TAB11 SL (10:17)
[2022-05-08] MEDS ORDERED: NIFE-35 PO (10:17)
[2022-05-08] MEDS ORDERED: OMEP1CAP24 PO (10:17)
[2022-05-08] MEDS ORDERED: DOCU-141 PO (10:17)
[2022-05-08 12:00] VITALS: BP 137/71
[2022-05-08 16:00] VITALS: BP 165/79
[2022-05-08] MEDS: DONEPEZIL 5 MG TABLET PO SCH (18:04)
[2022-05-08] MEDS: ONDANSETRON HCL/PF 4 MG/2 ML VIAL IVP PRN (18:05)
[2022-05-08] MEDS: ACETAMINOPHEN 325 MG TABLET PO PRN (18:53)
--- NOTE | 2022-05-08 19:24 | NUR ---
RN CLOSING NOTE PT IS IN BED. PT IS ON RA TOLERATING WELL WITH NO SIGNS OF LABORED BREATHING OR DISTRESS. PT IS A/OX1 TELE MONITORED. IV ACCESS L AC 22G NO FLUIDS INFUSING. BED IS LOCKED IN LOWEST POSITION X3 BED RAILS UP AND ALL HOSPITAL SAFETY MEASURES ARE IN PLACE. WILL ENDORSE TO RUBBER PRINTING MACHINE OPERATOR NURSE FOR IRAJ.
--- NOTE | 2022-05-08 19:35 | NUR ---
RN OPENING NOTES: RECEIVED PT IN BED, AWAKE, A/O X1-2 AND VERBALLY RESPONSIVE. ON ROOM AIR AND PT TOLERATED WELL. BREATHING EVEN AND UNLABORED. IV ACCESS ON LAC# 22G INTACT AND PATENT. NO S/S OF INFILTRATIONS. WILL START NS AT 75CC/HR. NO C/O PAIN OR DISCOMFORT. NO ACUTE DISTRESS. BILATERAL SOFT RESTRAINTS ON. ALL SAFETY MEASURES IN PLACE. BED IN LOWEST POSITION AND LOCKED. BED RAILS UP X3, PLACE CALL LIGHT WITH IN REACH BED ALARM ON. WILL CONTINUE TO MONITOR.
[2022-05-08 20:00] VITALS: BP 110/72
[2022-05-08] MEDS: IV NS 0.9% 1,000 ML IV PRN (20:16)
[2022-05-08] MEDS: CEFTRIAXONE 1 G in IV D5W 50 ML IV SCH (20:24)
[2022-05-08] MEDS: METRONIDAZOLE 500MG/ NS 100ML 500 MG in PREMIX 1 EA IV SCH (20:42)
[2022-05-09] VITALS: BP 126/75
[2022-05-09 04:00] VITALS: BP 140/100
[2022-05-09] MEDS: METRONIDAZOLE 500MG/ NS 100ML 500 MG in PREMIX 1 EA IV SCH ×3 (05:14→20:47)
[2022-05-09 06:25] LABS: BASOPHILS % (AUTO) 0.2 % (0.0-2.0); EOSINOPHILS % (AUTO) 0.2 % (0.0-6.0); HEMATOCRIT 38 % (33-45); HEMOGLOBIN 12.7 g/dL (11.5-14.8); LYMPHOCYTES # (AUTO) 1.8 K/uL (0.8-4.8); MEAN CORPUSCULAR HGB CONC 33 g/dl (31.0-36.0); MEAN CORPUSCULAR VOLUME 102 fL (82-100); MONOCYTES # (AUTO) 0.6 K/uL (0.1-1.30); MONOCYTES % (AUTO) 6.8 % (2.0-12.0); NEUTROPHILS % (AUTO) 73.8 % (43.0-81.0); PLATELET COUNT (AUTO) 376 K/uL (150-450); RED BLOOD CELL COUNT(AUTO) 3.72 MIL/uL (4.0-5.2); WHITE BLOOD COUNT (AUTO) 9.5 K/uL (4.3-11.0)
--- NOTE | 2022-05-09 06:51 | NUR ---
RN CLOSING NOTES: PT IN BED, SLEEPIN BUT EASILY AROUSABLE, A/O X1-2 AND VERBALLY RESPONSIVE. ON ROOM AIR AND PT TOLERATED WELL. O2 SAT 98%. BREATHING EVEN AND UNLABORED. IV ACCESS ON LAC# 22G INTACT AND PATENT. NO S/S OF INFILTRATIONS. RUNNING NS AT 75CC/HR. NO C/O PAIN OR DISCOMFORT. NO ACUTE DISTRESS. BILATERAL SOFT RESTRAINTS ON. ALL DUE MEDS GIVEN ORDERED. ALL SAFETY MEASURES IN PLACE. BED IN LOWEST POSITION AND LOCKED. BED RAILS UP X3, PLACE CALL LIGHT WITH IN REACH BED ALARM ON. WILL ENDORSE TO MORNING SHIFT NURSE.
[2022-05-09 07:37] LABS: CHOLESTEROL 168 mg/dL (<200); HDL CHOLESTEROL 80 mg/dL (40-60); LDL 78 mg/dL (0-99); TRIGLYCERIDES 65 mg/dL (30-150)
[2022-05-09] MEDS: LEVOTHYROXINE SODIUM 75 MCG TABLET PO SCH (07:39)
[2022-05-09] MEDS: PANTOPRAZOLE 40 MG TABLET.DR PO SCH (07:40)
[2022-05-09 07:43] LABS: CALCIUM, SERUM 8.9 mg/dL (8.5-10.1); CARBON DIOXIDE 24 mmol/L (21-32); CHLORIDE 99 mmol/L (98-107); GLUCOSE 132 mg/dL (74-106); MAGNESIUM 1.7 mg/dL (1.8-2.4); PHOSPHORUS 3.5 mg/dL (2.5-4.9); SODIUM SERUM 133 mmol/L (136-145); UREA NITROGEN, BLOOD 5 mg/dL (7-18)
[2022-05-09 08:00] VITALS: BP 170/97
--- NOTE | 2022-05-09 08:00 | NUR ---
RN OPENING NOTE PT RECEIVED IN BED AWAKE ON CARDIAC DIET V/S STASBLE AFEBRILE ON TELE MONITOR ST 104 PT STABLE AT THIS TIME. PT IS ON RA SATING 98%. WITH NO SIGNS OF LABORED BREATHING OR DISTRESS. PT IS A/OX1 IV ACCESS L AC 22G NS AT 75CC/HR INFUSING.WELL ,ALL DUE MEDS GIVEN ORDERED. ALL NEEDS ATTENDED TOO CALL LIGHT WITHIN REACH . BED IS LOCKED IN LOWEST POSITION X3 BED RAILS UP AND ALL HOSPITAL SAFETY MEASURES ARE IN PLACE. WILL CONTINUE TO MONITOR THIS SHIFT.
[2022-05-09] MEDS: LEVETIRACETAM (250 MG) 250 MG TABLET PO SCH ×2 (08:57→16:46)
[2022-05-09] MEDS: ESCITALOPRAM OXALATE (10 MG) 10 MG TABLET PO SCH (08:57)
[2022-05-09] MEDS: APIXABAN 2.5 MG TABLET PO SCH ×2 (08:58→16:48)
[2022-05-09] MEDS: BENZTROPINE MESYLATE (1 MG) 1 MG TABLET PO SCH ×2 (08:59→16:55)
[2022-05-09] MEDS: MEMANTINE HCL 5 MG TABLET PO SCH (09:00)
[2022-05-09] MEDS: SERTRALINE HCL 50 MG TABLET PO SCH ×2 (09:01→17:01)
[2022-05-09] MEDS: METOPROLOL TARTRATE 50 MG TABLET PO SCH ×2 (09:05→17:01)
[2022-05-09] MEDS: hydrALAZINE HCL 25 MG TABLET PO SCH ×2 (09:06→16:46)
[2022-05-09] MEDS ORDERED: POTASSIUM CHLORIDE 20 MEQ TAB.PRT.SR PO SCH (10:00)
[2022-05-09] MEDS ORDERED: MAGNESIUM OXIDE 400 MG TABLET PO ONE (10:00)
--- NOTE | 2022-05-09 10:15 | NUR ---
patient having SVT for 2 min and go back to Dr Toscano notified
--- NOTE | 2022-05-09 10:16 | NUR ---
TREE MARKER NOTES PTS NOTED WITH SVT 160-180 FOR 2 MINS , MADE AWARE DR BRO , AT THIS TIME I PTS ON ST - 108 WITH NNO AT THIS TIME, WILL CONTINUE TO MONITOR.
--- NOTE | 2022-05-09 10:25 | NUR ---
notified re; SVT waiting for returning call back .
--- NOTE | 2022-05-09 10:45 | NUR ---
Thanh WALLACE called back and aware of patient's SVT no orders obtained
--- NOTE | 2022-05-09 11:00 | NUR ---
PBX INSPECTOR NOTES NOTED ORDER FOR SMALL BOWEL TROUGH R/O SBO ORDER BY MD, PTS ALREADY EAT BREAKFAST AND LUNCH , SOON RN SPOKE TO XRAY DEPT THEY SAID THEY WILL DO PROCEDURE JONATHAN NPO POST [place] WILL ENDORSE TO NEXT SHIFT.
[2022-05-09 12:00] VITALS: BP 130/80
[2022-05-09] MEDS: ENSURE ENLIVE 237 ML LIQUID (VANILLA) PO SCH ×2 (12:00→18:22)
[2022-05-09] MEDS: IV NS 0.9% 1,000 ML IV PRN (13:03)
[2022-05-09 16:00] VITALS: BP 160/90
[2022-05-09] MEDS: DONEPEZIL 5 MG TABLET PO SCH (17:02)
--- NOTE | 2022-05-09 19:38 | NUR ---
RN OPENING NOTES: PTS REMAIN IN BED, AWAKE, A/O X1-2 AND VERBALLY RESPONSIVE. ON ROOM AIR AND PT TOLERATED WELL. BREATHING EVEN AND UNLABORED. IV ACCESS ON LAC# 22G INTACT AND PATENT. NO S/S OF INFILTRATIONS. WILL START NS AT 75CC/HR. NO C/O PAIN OR DISCOMFORT. NO ACUTE DISTRESS. BILATERAL SOFT RESTRAINTS ON. ALL SAFETY MEASURES IN PLACE. BED IN LOWEST POSITION AND LOCKED. BED RAILS UP X3, PLACE CALL LIGHT WITH IN REACH BED ALARM ON. WILL ENDORSE TO STEAM TURBINE ASSEMBLERMETAL GAUGE MAKER FOR CONTINUITY OF CARE.
--- NOTE | 2022-05-09 19:44 | NUR ---
RN OPENING NOTES: RECEIVED PT IN BED, AWAKE, A/O X1-2 AND VERBALLY RESPONSIVE. ON ROOM AIR AND PT TOLERATED WELL. BREATHING EVEN AND UNLABORED. IV ACCESS ON LAC# 22G INTACT AND PATENT. NO S/S OF INFILTRATIONS. INFUSING NS AT 75CC/HR. NO C/O PAIN OR DISCOMFORT. NO ACUTE DISTRESS. BILATERAL SOFT RESTRAINTS ON. ALL SAFETY MEASURES IN PLACE. BED IN LOWEST POSITION AND LOCKED. BED RAILS UP X3, PLACE CALL LIGHT WITH IN REACH BED ALARM ON. WILL CONTINUE TO MONITOR.
[2022-05-09 20:00] VITALS: BP 130/80
[2022-05-09] MEDS: CEFTRIAXONE 1 G in IV D5W 50 ML IV SCH (20:46)
[2022-05-09] MEDS: ACETAMINOPHEN 325 MG TABLET PO PRN (22:26)
--- NOTE | 2022-05-09 22:28 | NUR ---
RN NOTES: PT NOTED WITH FACIAL GRIMACING. RESTLESSNESS. TYLENOL 325 MG 2 TABS GIVEN. PT TOLERATED WELL. WILL CONTINUE TO MONITOR
[2022-05-10] VITALS: BP 142/90
[2022-05-10 04:00] VITALS: BP 158/88
[2022-05-10] MEDS: IV NS 0.9% 1,000 ML IV PRN ×2 (04:20→20:51)
[2022-05-10] MEDS: METRONIDAZOLE 500MG/ NS 100ML 500 MG in PREMIX 1 EA IV SCH ×3 (04:21→21:20)
--- NOTE | 2022-05-10 06:45 | NUR ---
RN CLOSING NOTES: PT IN BED, AWAKE, A/O X1-2 AND VERBALLY RESPONSIVE. ON ROOM AIR AND PT TOLERATED WELL. O2 SAT 98%. BREATHING EVEN AND UNLABORED. IV ACCESS ON LAC# 22G INTACT AND PATENT. NO S/S OF INFILTRATIONS. INFUSING NS AT 75CC/HR. NO C/O PAIN OR DISCOMFORT. NO ACUTE DISTRESS. BILATERAL SOFT RESTRAINTS ON. RELEASED Q 2HOURS TO CHECK CIRCULATION. ALL DUE MEDS GIVEN ORDERED. ALL SAFETY MEASURES IN PLACE. BED IN LOWEST POSITION AND LOCKED. BED RAILS UP X3, PLACE CALL LIGHT WITH IN REACH BED ALARM ON. WILL ENDORSE TO MORNING SHIFT NURSE.
--- NOTE | 2022-05-10 07:27 | NUR ---
RN OPENING NOTES: RECEIVED PT IN BED, AWAKE, A/O X1-2 AND VERBALLY RESPONSIVE. ON ROOM AIR AND PT TOLERATED WELL. BREATHING EVEN AND UNLABORED. IV ACCESS ON LAC# 22G INTACT AND PATENT. NO C/O PAIN OR DISCOMFORT. NO ACUTE DISTRESS. BILATERAL SOFT RESTRAINTS ON. ALL SAFETY MEASURES IN PLACE. BED IN LOWEST POSITION AND LOCKED. BED RAILS UP X3, PLACE CALL LIGHT WITH IN REACH BED ALARM ON.
[2022-05-10 08:00] VITALS: BP 162/90
[2022-05-10] MEDS: APIXABAN 2.5 MG TABLET PO SCH ×2 (08:25→17:16)
[2022-05-10] MEDS: PANTOPRAZOLE 40 MG TABLET.DR PO SCH (08:25)
[2022-05-10] MEDS: METOPROLOL TARTRATE 50 MG TABLET PO SCH ×3 (08:25→17:14)
[2022-05-10] MEDS: LEVETIRACETAM (250 MG) 250 MG TABLET PO SCH ×2 (08:26→17:14)
[2022-05-10] MEDS: ESCITALOPRAM OXALATE (10 MG) 10 MG TABLET PO SCH (08:26)
[2022-05-10] MEDS: LEVOTHYROXINE SODIUM 75 MCG TABLET PO SCH (08:26)
[2022-05-10] MEDS: hydrALAZINE HCL 25 MG TABLET PO SCH ×2 (08:26→17:14)
[2022-05-10] MEDS: ENSURE ENLIVE 237 ML LIQUID (VANILLA) PO SCH ×3 (08:26→17:00)
[2022-05-10] MEDS: BENZTROPINE MESYLATE (1 MG) 1 MG TABLET PO SCH ×2 (08:26→17:14)
[2022-05-10] MEDS: SERTRALINE HCL 50 MG TABLET PO SCH ×2 (08:26→17:14)
[2022-05-10] MEDS: MEMANTINE HCL 5 MG TABLET PO SCH (08:28)
[2022-05-10 09:39] LABS: CALCIUM, SERUM 8.7 mg/dL (8.5-10.1); CREATININE 0.8 mg/dL (0.6-1.3); POTASSIUM 3.9 mmol/L (3.5-5.1)
[2022-05-10] MEDS ORDERED: DIATR MEGLU/DIATRIZOATE SODIUM 120 ML BOTTLE (GASTROGRAPHIN) ONE (10:19)
[2022-05-10 12:00] VITALS: BP 156/90
[2022-05-10 16:00] VITALS: BP 156/90
[2022-05-10] MEDS: DONEPEZIL 5 MG TABLET PO SCH (17:14)
--- NOTE | 2022-05-10 18:44 | NUR ---
RN CLOSING NOTES: PT IN BED, AWAKE, A/O X1-2 AND VERBALLY RESPONSIVE. ON ROOM AIR AND PT TOLERATED WELL. O2 SAT 96%. BREATHING EVEN AND UNLABORED. IV ACCESS ON LAC# 22G INTACT AND PATENT. NO S/S OF INFILTRATIONS. INFUSING NS AT 75CC/HR. NO C/O PAIN OR DISCOMFORT. NO ACUTE DISTRESS. BILATERAL SOFT RESTRAINTS ON. RELEASED Q 2HOURS TO CHECK CIRCULATION. ALL DUE MEDS GIVEN ORDERED. ALL SAFETY MEASURES IN PLACE. BED IN LOWEST POSITION AND LOCKED. BED RAILS UP X3, PLACE CALL LIGHT WITH IN REACH BED ALARM ON. WILL ENDORSE TO MECHANIC FOREMAN NURSE.
--- NOTE | 2022-05-10 18:59 | NUR ---
RN NOTE INFORMED CHARGED NURSE X-RAY CAME BACK - NO OBSTRUCTION NOTED. PATIENT PLACED BACK ON PUREED DIET
--- NOTE | 2022-05-10 19:49 | NUR ---
RN OPENING NOTES: RECEIVED PT IN BED, AWAKE, A/O X1-2 AND VERBALLY RESPONSIVE. ON ROOM AIR AND PT TOLERATED WELL. BREATHING EVEN AND UNLABORED. IV ACCESS ON LAC# 22G INTACT AND PATENT. NO S/S OF INFILTRATIONS. INFUSING NS AT 75CC/HR. NO C/O PAIN OR DISCOMFORT. NO ACUTE DISTRESS. BILATERAL SOFT RESTRAINTS ON. ALL SAFETY MEASURES IN PLACE. BED IN LOWEST POSITION AND LOCKED. BED RAILS UP X3, PLACE CALL LIGHT WITH IN REACH. BED ALARM ON. WILL CONTINUE TO MONITOR.
[2022-05-10 20:00] VITALS: BP 105/78
[2022-05-10] MEDS: CEFTRIAXONE 1 G in IV D5W 50 ML IV SCH (20:38)
[2022-05-11] VITALS: BP 142/90
[2022-05-11 04:00] VITALS: BP 150/90
[2022-05-11] MEDS: METRONIDAZOLE 500MG/ NS 100ML 500 MG in PREMIX 1 EA IV SCH ×3 (04:51→21:31)
--- NOTE | 2022-05-11 07:57 | NUR ---
RN OPEN NOTE PT IN BED, AWAKE, A/O X1-2 AND VERBALLY RESPONSIVE. ON ROOM AIR AND PT TOLERATED WELL. O2 SAT 98%. BREATHING EVEN AND UNLABORED. IV ACCESS ON LAC# 22G INTACT AND PATENT. NO S/S OF INFILTRATIONS. INFUSING NS AT 75CC/HR. NO C/O PAIN OR DISCOMFORT. NO ACUTE DISTRESS. BILATERAL SOFT RESTRAINTS ON. RELEASED Q 2HOURS TO CHECK CIRCULATION. ALL DUE MEDS GIVEN ORDERED. ALL SAFETY MEASURES IN PLACE. BED IN LOWEST POSITION AND LOCKED. BED RAILS UP X3, PLACE CALL LIGHT WITH IN REACH BED ALARM ON. WILL CONTINUE TO FALLOW POC
[2022-05-11 08:00] VITALS: BP 175/98
[2022-05-11] MEDS: hydrALAZINE HCL 25 MG TABLET PO SCH ×2 (09:14→16:21)
[2022-05-11] MEDS: ESCITALOPRAM OXALATE (10 MG) 10 MG TABLET PO SCH (09:14)
[2022-05-11] MEDS: MEMANTINE HCL 5 MG TABLET PO SCH (09:14)
[2022-05-11] MEDS: SERTRALINE HCL 50 MG TABLET PO SCH ×2 (09:15→16:20)
[2022-05-11] MEDS: LEVETIRACETAM (250 MG) 250 MG TABLET PO SCH ×2 (09:15→16:20)
[2022-05-11] MEDS: METOPROLOL TARTRATE 50 MG TABLET PO SCH ×3 (09:15→16:22)
[2022-05-11] MEDS: APIXABAN 2.5 MG TABLET PO SCH ×2 (09:16→16:21)
[2022-05-11] MEDS: LEVOTHYROXINE SODIUM 75 MCG TABLET PO SCH (09:23)
[2022-05-11] MEDS: PANTOPRAZOLE 40 MG TABLET.DR PO SCH (09:25)
[2022-05-11] MEDS: ENSURE ENLIVE 237 ML LIQUID (VANILLA) PO SCH ×3 (09:26→16:31)
[2022-05-11] MEDS: BENZTROPINE MESYLATE (1 MG) 1 MG TABLET PO SCH ×2 (09:26→16:21)
[2022-05-11 12:00] VITALS: BP 169/72
[2022-05-11] MEDS: IV NS 0.9% 1,000 ML IV PRN (12:41)
[2022-05-11] MEDS: DONEPEZIL 5 MG TABLET PO SCH (17:05)
[2022-05-11 17:41] VITALS: BP 175/79
[2022-05-11] MEDS: ONDANSETRON HCL/PF 4 MG/2 ML VIAL IVP PRN (18:23)
--- NOTE | 2022-05-11 18:41 | NUR ---
RN CLOSE NOTE PT IN BED, AWAKE, A/O X1-2 AND VERBALLY RESPONSIVE. ON ROOM AIR AND PT TOLERATED WELL. O2 SAT 97%. BREATHING EVEN AND UNLABORED. IV ACCESS ON LAC# 22G INTACT AND PATENT. NO S/S OF INFILTRATIONS. INFUSING NS AT 75CC/HR. NO C/O PAIN OR DISCOMFORT. NO ACUTE DISTRESS. BILATERAL SOFT RESTRAINTS ON. RELEASED Q 2HOURS TO CHECK CIRCULATION. ALL DUE MEDS GIVEN ORDERED. ALL SAFETY MEASURES IN PLACE. BED IN LOWEST POSITION AND LOCKED. BED RAILS UP X3, PLACE CALL LIGHT WITH IN REACH BED ALARM ON. WILL ENDORSE TABLET TESTER NURSE TO FALLOW POC.
--- NOTE | 2022-05-11 19:03 | NUR ---
RN OPENING NOTE PT IN BED, AWAKE, A/O X1-2 AND VERBALLY RESPONSIVE. ON ROOM AIR AND PT TOLERATED WELL. O2 SAT 97%. BREATHING EVEN AND UNLABORED. IV ACCESS ON LAC# 22G INTACT AND PATENT. NO S/S OF INFILTRATIONS. INFUSING NS AT 75CC/HR. NO C/O PAIN OR DISCOMFORT. NO ACUTE DISTRESS. BILATERAL SOFT RESTRAINTS ON. RELEASED Q 2HOURS TO CHECK CIRCULATION .ALL SAFETY MEASURES IN PLACE. BED IN LOWEST POSITION AND LOCKED. BED RAILS UP X3, PLACE CALL LIGHT WITH IN REACH BED ALARM ON.
[2022-05-11 20:00] VITALS: BP 140/87
[2022-05-11] MEDS: CEFTRIAXONE 1 G in IV D5W 50 ML IV SCH (20:39)
[2022-05-12 00:40] VITALS: BP 157/73
[2022-05-12 04:07] VITALS: BP 150/75
[2022-05-12] MEDS: METRONIDAZOLE 500MG/ NS 100ML 500 MG in PREMIX 1 EA IV SCH ×3 (05:15→20:07)
[2022-05-12 06:20] LABS: BASOPHILS % (AUTO) 0.4 % (0.0-2.0); EOSINOPHILS % (AUTO) 0.9 % (0.0-6.0); HEMATOCRIT 37 % (33-45); HEMOGLOBIN 12.5 g/dL (11.5-14.8); LYMPHOCYTES # (AUTO) 1.5 K/uL (0.8-4.8); LYMPHOCYTES % (AUTO) 22.4 % (20.0-44.0); MEAN CORPUSCULAR HGB CONC 34 g/dl (31.0-36.0); MEAN CORPUSCULAR VOLUME 102 fL (82-100); MONOCYTES # (AUTO) 0.6 K/uL (0.1-1.30); MONOCYTES % (AUTO) 8.9 % (2.0-12.0); NEUTROPHILS # (AUTO) 4.6 K/uL (1.8-8.9); NEUTROPHILS % (AUTO) 67.4 % (43.0-81.0); PLATELET COUNT (AUTO) 347 K/uL (150-450); WHITE BLOOD COUNT (AUTO) 6.9 K/uL (4.3-11.0)
--- NOTE | 2022-05-12 06:34 | NUR ---
RN CLOSING NOTE PT IN BED, ASLEEP. ON ROOM AIR AND PT TOLERATED WELL. O2 SAT 97%. BREATHING EVEN AND UNLABORED. IV ACCESS ON LAC# 22G INTACT AND PATENT. NO S/S OF INFILTRATIONS. INFUSING NS AT 75CC/HR. NO C/O PAIN OR DISCOMFORT. NO ACUTE DISTRESS. BILATERAL SOFT RESTRAINTS ON. RELEASED Q 2HOURS TO CHECK CIRCULATION .ALL SAFETY MEASURES IN PLACE. BED IN LOWEST POSITION AND LOCKED. BED RAILS UP X3, PLACE CALL LIGHT WITH IN REACH BED ALARM ON.
[2022-05-12 06:53] LABS: CALCIUM, SERUM 8.3 mg/dL (8.5-10.1); CREATININE 0.9 mg/dL (0.6-1.3); MAGNESIUM 1.9 mg/dL (1.8-2.4)
--- NOTE | 2022-05-12 07:18 | NUR ---
RN OPENING NOTE PT IN BED, AWAKE, A/O X1-2 AND VERBALLY RESPONSIVE. ON ROOM AIR AND PT TOLERATED WELL. BREATHING EVEN AND UNLABORED. IV ACCESS ON LAC# 22G INTACT AND PATENT. NO S/S OF INFILTRATIONS. INFUSING NS AT 75CC/HR. NO C/O PAIN OR DISCOMFORT. NO ACUTE DISTRESS. BILATERAL SOFT RESTRAINTS ON.ALL SAFETY MEASURES IN PLACE. BED IN LOWEST POSITION AND LOCKED. BED RAILS UP X3, PLACE CALL LIGHT WITH IN REACH BED ALARM ON.
[2022-05-12 08:00] VITALS: BP 158/78
[2022-05-12 08:04] LABS: POTASSIUM 2.7 mmol/L (3.5-5.1)
--- NOTE | 2022-05-12 08:06 | NUR ---
notified re; k level was 2.7 and abtained orderd will give kcl 40meq po and repeat k level in 2 hrs
[2022-05-12] MEDS: METOPROLOL TARTRATE 50 MG TABLET PO SCH ×3 (08:27→16:20)
[2022-05-12] MEDS: BENZTROPINE MESYLATE (1 MG) 1 MG TABLET PO SCH ×2 (08:27→16:21)
[2022-05-12] MEDS: ESCITALOPRAM OXALATE (10 MG) 10 MG TABLET PO SCH (08:27)
[2022-05-12] MEDS: LEVETIRACETAM (250 MG) 250 MG TABLET PO SCH ×2 (08:27→16:20)
[2022-05-12] MEDS: SERTRALINE HCL 50 MG TABLET PO SCH ×2 (08:27→16:21)
[2022-05-12] MEDS: PANTOPRAZOLE 40 MG TABLET.DR PO SCH (08:27)
[2022-05-12] MEDS: LEVOTHYROXINE SODIUM 75 MCG TABLET PO SCH (08:27)
[2022-05-12] MEDS: MEMANTINE HCL 5 MG TABLET PO SCH (08:27)
[2022-05-12] MEDS: hydrALAZINE HCL 25 MG TABLET PO SCH ×2 (08:28→21:12)
[2022-05-12] MEDS: APIXABAN 2.5 MG TABLET PO SCH ×2 (08:28→16:22)
[2022-05-12] MEDS: ENSURE ENLIVE 237 ML LIQUID (VANILLA) PO SCH ×3 (08:29→17:05)
--- NOTE | 2022-05-12 09:00 | NUR ---
RN NOTE RELEASED RESTRAINTS WILL MONITOR PATIENT
[2022-05-12] MEDS ORDERED: POTASSIUM CHLORIDE 20 MEQ POWDER PACKET PO ONE ×2 (10:00→15:00)
--- NOTE | 2022-05-12 12:00 | NUR ---
RN NOTE RESTRAINT NEED REASSESSED PT IS NOT COMBATIVE OR ATTEMPTING TO GET UP FROM BED
--- NOTE | 2022-05-12 15:00 | NUR ---
RN NOTE RESTRAINTS D/C
--- NOTE | 2022-05-12 15:52 | NUR ---
RN NOTE B/P NOTED 180/[address] MATHUR RECEIVED ORDER FOR CLONIDINE PRN FOR SBP GREATER THAT 160 AND INCREASE HYDRALAZINE TO 50MG. ORDERS PLACED
[2022-05-12 16:00] VITALS: BP 180/77
[2022-05-12] MEDS: CLONIDINE HCL 0.1 MG TABLET PO PRN (16:21)
[2022-05-12] MEDS: IV NS 0.9% 1,000 ML IV PRN (16:32)
[2022-05-12] MEDS: DONEPEZIL 5 MG TABLET PO SCH (17:05)
--- NOTE | 2022-05-12 18:38 | NUR ---
RN CLOSING NOTE PT IN BED, ASLEEP. ON ROOM AIR AND PT TOLERATED WELL.. BREATHING EVEN AND UNLABORED. IV ACCESS ON LAC# 22G INTACT AND PATENT. NO S/S OF INFILTRATIONS. INFUSING NS AT 75CC/HR. NO C/O PAIN OR DISCOMFORT. NO ACUTE DISTRESS .ALL SAFETY MEASURES IN PLACE. BED IN LOWEST POSITION AND LOCKED. BED RAILS UP X3, PLACE CALL LIGHT WITH IN REACH BED ALARM ON.
[2022-05-12 20:00] VITALS: BP 110/59
[2022-05-12] MEDS: CEFTRIAXONE 1 G in IV D5W 50 ML IV SCH (21:02)
--- NOTE | 2022-05-13 01:44 | NUR ---
RN OPENING NOTES: PTS REMAIN IN BED, AWAKE, A/O X1-2 AND VERBALLY RESPONSIVE. ON ROOM AIR AND PT TOLERATED WELL. BREATHING EVEN AND UNLABORED. IV ACCESS ON LAC# 22G INTACT AND PATENT. NO S/S OF INFILTRATIONS. WITH NS AT 75CC/HR. INFUSING WELL .NO C/O PAIN OR DISCOMFORT. NO SOB NO ACUTE DISTRESS NOTED . . ALL SAFETY MEASURES IN PLACE. BED IN LOWEST POSITION AND LOCKED. BED RAILS UP X3, PLACE CALL LIGHT WITH IN REACH BED ALARM ON. WILL CONTINUE TO MONITOR PATIENT.
[2022-05-13 04:00] VITALS: BP 173/68
[2022-05-13] MEDS: METRONIDAZOLE 500MG/ NS 100ML 500 MG in PREMIX 1 EA IV SCH ×3 (04:25→20:56)
[2022-05-13] MEDS: CLONIDINE HCL 0.1 MG TABLET PO PRN (04:27)
--- NOTE | 2022-05-13 06:44 | NUR ---
RN CLOSING NOTE PT IN BED, ASLEEP. ON ROOM AIR AND PT TOLERATED WELL. O2 SAT 97%. BREATHING EVEN AND UNLABORED. IV ACCESS ON LAC# 22G INTACT AND PATENT. NO S/S OF INFILTRATIONS. INFUSING NS AT 75CC/HR. NO C/O PAIN OR DISCOMFORT. NO ACUTE DISTRESS..ALL SAFETY MEASURES IN PLACE. BED IN LOWEST POSITION AND LOCKED. BED RAILS UP X3, PLACE CALL LIGHT WITH IN REACH BED ALARM ON.WILL ENDORSE TO RN DAY SHIFT FOR CONTINUITY OF CARE,
[2022-05-13 07:03] LABS: BASOPHILS % (AUTO) 0.6 % (0.0-2.0); EOSINOPHILS % (AUTO) 1.5 % (0.0-6.0); HEMATOCRIT 30 % (33-45); HEMOGLOBIN 9.9 g/dL (11.5-14.8); LYMPHOCYTES # (AUTO) 1.4 K/uL (0.8-4.8); LYMPHOCYTES % (AUTO) 25.1 % (20.0-44.0); MEAN CORPUSCULAR HGB CONC 34 g/dl (31.0-36.0); MEAN CORPUSCULAR VOLUME 103 fL (82-100); MONOCYTES # (AUTO) 0.6 K/uL (0.1-1.30); MONOCYTES % (AUTO) 9.9 % (2.0-12.0); NEUTROPHILS # (AUTO) 3.6 K/uL (1.8-8.9); NEUTROPHILS % (AUTO) 62.9 % (43.0-81.0); PLATELET COUNT (AUTO) 281 K/uL (150-450); RED BLOOD CELL COUNT(AUTO) 2.87 MIL/uL (4.0-5.2); WHITE BLOOD COUNT (AUTO) 5.8 K/uL (4.3-11.0)
--- NOTE | 2022-05-13 07:15 | NUR ---
RN OPEN NOTE PT IN BED, AWAKE, A/O X1-2 AND VERBALLY RESPONSIVE. ON ROOM AIR AND PT TOLERATED WELL. BREATHING EVEN AND UNLABORED. IV ACCESS ON LAC# 22G INTACT AND PATENT. NS RUNNING AT 75 ML/HR ,NO S/S OF INFILTRATIONS. NO C/O PAIN OR DISCOMFORT. NO ACUTE DISTRESS. .ALL SAFETY MEASURES IN PLACE. BED IN LOWEST POSITION AND LOCKED. BED RAILS UP X3, PLACE CALL LIGHT WITH IN REACH BED ALARM ON.WILL CONTINUE TO FALLOW POC
[2022-05-13] MEDS: LEVOTHYROXINE SODIUM 75 MCG TABLET PO SCH (07:27)
[2022-05-13] MEDS: ENSURE ENLIVE 237 ML LIQUID (VANILLA) PO SCH ×3 (07:27→16:30)
[2022-05-13] MEDS: PANTOPRAZOLE 40 MG TABLET.DR PO SCH (07:27)
[2022-05-13 08:02] LABS: CALCIUM, SERUM 7.8 mg/dL (8.5-10.1); CREATININE 1.1 mg/dL (0.6-1.3); MAGNESIUM 1.8 mg/dL (1.8-2.4); POTASSIUM 3.2 mmol/L (3.5-5.1)
[2022-05-13] MEDS: METOPROLOL TARTRATE 50 MG TABLET PO SCH ×3 (08:34→16:28)
[2022-05-13] MEDS: MEMANTINE HCL 5 MG TABLET PO SCH (08:34)
[2022-05-13] MEDS: LEVETIRACETAM (250 MG) 250 MG TABLET PO SCH ×2 (08:34→16:28)
[2022-05-13] MEDS: ESCITALOPRAM OXALATE (10 MG) 10 MG TABLET PO SCH (08:34)
[2022-05-13] MEDS: SERTRALINE HCL 50 MG TABLET PO SCH ×2 (08:35→16:29)
[2022-05-13] MEDS: hydrALAZINE HCL 25 MG TABLET PO SCH ×2 (08:35→16:29)
[2022-05-13] MEDS: BENZTROPINE MESYLATE (1 MG) 1 MG TABLET PO SCH ×2 (08:35→16:28)
[2022-05-13] MEDS: APIXABAN 2.5 MG TABLET PO SCH ×2 (08:36→16:29)
[2022-05-13] MEDS: IV NS 0.9% 1,000 ML IV PRN (09:12)
[2022-05-13] MEDS ORDERED: POTASSIUM CHLORIDE 20 MEQ POWDER PACKET PO SCH (12:00)
[2022-05-13 12:51] VITALS: BP 132/55
[2022-05-13] MEDS ORDERED: POTASSIUM CL. PREMIX PERIPHER. 50 ML IV SCH (13:00)
--- NOTE | 2022-05-13 14:37 | NUR ---
RN NOTE PATIENT'S SON CALLED WITH REQUEST TO TRANSFER HIS MOTHER TO THE [facility] , STATING THAT HE LIKES IT BETTER WHEN SHE WAS THERE BEFORE , CHARGE NURSE Silver CALLED TO THE [facility] , [facility] IS FULL AT THIS MOMENT SSON THEY HAVE AVAILABLE BED PATIENT WILL BE TRANSFERED TO THE [facility] .
[2022-05-13] MEDS: DONEPEZIL 5 MG TABLET PO SCH (17:19)
--- NOTE | 2022-05-13 18:36 | NUR ---
RN CLOSING NOTE PT IN BED, ASLEEP. ON ROOM AIR TOLERATED WELL. O2 SAT 97%. BREATHING EVEN AND UNLABORED. IV ACCESS ON LAC# 22G INTACT AND PATENT. NO S/S OF INFILTRATIONS. INFUSING NS AT 75CC/HR. NO C/O PAIN OR DISCOMFORT. NO ACUTE DISTRESS..ALL SAFETY MEASURES IN PLACE. ALL MEDS ADMINISTERED , ALL NEEDS ARE MET BED IN LOWEST POSITION AND LOCKED. BED RAILS UP X3, PLACE CALL LIGHT WITH IN REACH BED ALARM ON.WILL ENDORSE TO HUMAN RESOURCE OFFICERNETWORK FIELD ENGINEER FOR CONTINUITY OF CARE,
[2022-05-13 20:00] VITALS: BP 120/55
--- NOTE | 2022-05-13 20:00 | NUR ---
RN OPENING NOTES: PTS IN BED, AWAKE, A/O X1-2 AND VERBALLY RESPONSIVE. ON ROOM AIR AND PT TOLERATED WELL. BREATHING EVEN AND UNLABORED. IV ACCESS ON LAC# 22G INTACT AND PATENT. NO S/S OF INFILTRATIONS. WITH NS AT 75CC/HR. INFUSING WELL .NO C/O PAIN OR DISCOMFORT. NO SOB NO ACUTE DISTRESS NOTED . . ALL SAFETY MEASURES IN PLACE. BED IN LOWEST POSITION AND LOCKED. BED RAILS UP X3, PLACE CALL LIGHT WITH IN REACH BED ALARM ON. WILL CONTINUE TO MONITOR PATIENT.
[2022-05-13] MEDS: CEFTRIAXONE 1 G in IV D5W 50 ML IV SCH (20:26)
[2022-05-14 04:00] VITALS: BP 136/80
[2022-05-14] MEDS: METRONIDAZOLE 500MG/ NS 100ML 500 MG in PREMIX 1 EA IV SCH ×3 (05:22→21:11)
[2022-05-14] MEDS: IV NS 0.9% 1,000 ML IV PRN (05:41)
--- NOTE | 2022-05-14 05:58 | NUR ---
RN CLOSING NOTE PT IN BED, ASLEEP. ON ROOM AIR AND PT TOLERATED WELL. O2 SAT 100%. BREATHING EVEN AND UNLABORED. IV ACCESS ON LAC# 22G INTACT AND PATENT. NO S/S OF INFILTRATIONS. INFUSING NS AT 75CC/HR. NO C/O PAIN OR DISCOMFORT. NO ACUTE DISTRESS..ALL SAFETY MEASURES IN PLACE. BED IN LOWEST POSITION AND LOCKED. BED RAILS UP X3, PLACE CALL LIGHT WITH IN REACH BED ALARM ON.WILL ENDORSE TO RN DAY SHIFT FOR CONTINUITY OF CARE,
[2022-05-14 07:02] LABS: BASOPHILS % (AUTO) 0.5 % (0.0-2.0); HEMATOCRIT 30 % (33-45); HEMOGLOBIN 10.2 g/dL (11.5-14.8); LYMPHOCYTES # (AUTO) 1.4 K/uL (0.8-4.8); LYMPHOCYTES % (AUTO) 23.4 % (20.0-44.0); MEAN CORPUSCULAR HGB CONC 34 g/dl (31.0-36.0); MEAN CORPUSCULAR VOLUME 104 fL (82-100); MONOCYTES # (AUTO) 0.5 K/uL (0.1-1.30); MONOCYTES % (AUTO) 7.8 % (2.0-12.0); NEUTROPHILS # (AUTO) 3.9 K/uL (1.8-8.9); NEUTROPHILS % (AUTO) 66.3 % (43.0-81.0); PLATELET COUNT (AUTO) 267 K/uL (150-450); RED BLOOD CELL COUNT(AUTO) 2.89 MIL/uL (4.0-5.2); WHITE BLOOD COUNT (AUTO) 5.9 K/uL (4.3-11.0)
[2022-05-14 07:07] LABS: CALCIUM, SERUM 8.1 mg/dL (8.5-10.1); MAGNESIUM 1.8 mg/dL (1.8-2.4); POTASSIUM 3.2 mmol/L (3.5-5.1)
[2022-05-14] MEDS: hydrALAZINE HCL 25 MG TABLET PO SCH ×2 (08:19→16:04)
[2022-05-14] MEDS: BENZTROPINE MESYLATE (1 MG) 1 MG TABLET PO SCH ×2 (08:19→16:03)
[2022-05-14] MEDS: PANTOPRAZOLE 40 MG TABLET.DR PO SCH (08:19)
[2022-05-14] MEDS: CLONIDINE HCL 0.1 MG TABLET PO PRN (08:20)
[2022-05-14] MEDS: LEVOTHYROXINE SODIUM 75 MCG TABLET PO SCH (08:20)
[2022-05-14] MEDS: ESCITALOPRAM OXALATE (10 MG) 10 MG TABLET PO SCH (08:20)
[2022-05-14] MEDS: APIXABAN 2.5 MG TABLET PO SCH ×2 (08:22→16:05)
[2022-05-14] MEDS: SERTRALINE HCL 50 MG TABLET PO SCH ×2 (08:23→16:04)
[2022-05-14] MEDS: MEMANTINE HCL 5 MG TABLET PO SCH (08:23)
[2022-05-14] MEDS: METOPROLOL TARTRATE 50 MG TABLET PO SCH ×3 (08:24→16:03)
[2022-05-14] MEDS: LEVETIRACETAM (250 MG) 250 MG TABLET PO SCH ×2 (08:24→16:04)
[2022-05-14] MEDS: ENSURE ENLIVE 237 ML LIQUID (VANILLA) PO SCH ×3 (08:43→16:08)
[2022-05-14 12:03] VITALS: BP 156/86
[2022-05-14] MEDS ORDERED: POTASSIUM CHLORIDE 20 MEQ POWDER PACKET PO ONE (13:00)
[2022-05-14] MEDS: DONEPEZIL 5 MG TABLET PO SCH (17:33)
--- NOTE | 2022-05-14 18:23 | NUR ---
RN CLOSING NOTE PT IN BED, ASLEEP. ON ROOM AIR TOLERATED WELL. O2 SAT 97%. BREATHING EVEN AND UNLABORED. IV ACCESS ON R WRIST # 24G INTACT AND PATENT. NO S/S OF INFILTRATIONS. INFUSING NS AT 75CC/HR. NO C/O PAIN OR DISCOMFORT. NO ACUTE DISTRESS..ALL SAFETY MEASURES IN PLACE. ALL MEDS ADMINISTERED , ALL NEEDS ARE MET BED IN LOWEST POSITION AND LOCKED. BED RAILS UP X3, PLACE CALL LIGHT WITH IN REACH BED ALARM ON.WILL ENDORSE TO POLICE LIEUTENANTHEDGE FUND MANAGER FOR CONTINUITY OF CARE,
[2022-05-14 20:00] VITALS: BP 144/54
--- NOTE | 2022-05-14 20:00 | NUR ---
RN OPENING NOTES: PTS IN BED, AWAKE, A/O X1-2 AND VERBALLY RESPONSIVE. ON ROOM AIR AND PT TOLERATED WELL. BREATHING EVEN AND UNLABORED. IV ACCESS ON RIGHT WRIST # 24G INTACT AND PATENT. NO S/S OF INFILTRATIONS. WITH NS AT 75CC/HR. INFUSING WELL .NO C/O PAIN OR DISCOMFORT. NO SOB NO ACUTE DISTRESS NOTED . . ALL SAFETY MEASURES IN PLACE. BED IN LOWEST POSITION AND LOCKED. BED RAILS UP X3, PLACE CALL LIGHT WITH IN REACH BED ALARM ON. WILL CONTINUE TO MONITOR PATIENT.
[2022-05-14] MEDS: CEFTRIAXONE 1 G in IV D5W 50 ML IV SCH (20:29)
[2022-05-15 04:00] VITALS: BP 120/66
[2022-05-15] MEDS: METRONIDAZOLE 500MG/ NS 100ML 500 MG in PREMIX 1 EA IV SCH ×3 (04:20→21:59)
--- NOTE | 2022-05-15 07:20 | NUR ---
RN OPENING NOTE PT IN BED, AWAKE, A/0 X1-2 AND VERBALLY RESPONSIVE.PT ROOM AIR TOLERATING AT 97%. NO PAIN OR DISCOMFORT AT THIS TIME. PT HAS IV ACCESS LAC 22 GAUGE, PATENT AND INTACT, FLUSHING WELL.NO S/S OF INFILTRATION. NS AT 75 CC/HR. ALL SAFETY MEASURES IN PLACE. BED IN LOWEST POSITION AND LOCKED. BED RAILS UP X2, CALL LIGHT WITH IN REACH BED ALARM ON.
[2022-05-15 08:00] VITALS: BP 193/71
[2022-05-15] MEDS: PANTOPRAZOLE 40 MG TABLET.DR PO SCH (08:08)
[2022-05-15] MEDS: LEVOTHYROXINE SODIUM 75 MCG TABLET PO SCH (08:08)
[2022-05-15] MEDS: hydrALAZINE HCL 25 MG TABLET PO SCH ×2 (08:09→17:56)
[2022-05-15] MEDS: ESCITALOPRAM OXALATE (10 MG) 10 MG TABLET PO SCH (08:09)
[2022-05-15] MEDS: LEVETIRACETAM (250 MG) 250 MG TABLET PO SCH ×2 (08:09→16:31)
[2022-05-15] MEDS: BENZTROPINE MESYLATE (1 MG) 1 MG TABLET PO SCH ×2 (08:09→16:30)
[2022-05-15] MEDS: MEMANTINE HCL 5 MG TABLET PO SCH (08:10)
[2022-05-15] MEDS: SERTRALINE HCL 50 MG TABLET PO SCH ×2 (08:10→16:31)
[2022-05-15] MEDS: APIXABAN 2.5 MG TABLET PO SCH ×2 (08:12→16:32)
[2022-05-15] MEDS: ENSURE ENLIVE 237 ML LIQUID (VANILLA) PO SCH ×3 (08:31→17:44)
[2022-05-15] MEDS: METOPROLOL TARTRATE 50 MG TABLET PO SCH ×3 (10:00→16:21)
[2022-05-15] MEDS: IV NS 0.9% 1,000 ML IV PRN (12:45)
[2022-05-15] MEDS ORDERED: POTASSIUM CL. PREMIX PERIPHER. 50 ML IV SCH (13:00)
[2022-05-15 13:17] LABS: CALCIUM, SERUM 8.1 mg/dL (8.5-10.1); POTASSIUM 3.2 mmol/L (3.5-5.1)
--- NOTE | 2022-05-15 13:53 | NUR ---
rn note notified that pt bp is 164/71, hr 60.did manual check, hr 58. asked if okay to hold Metoprol said okay to hold. notified that potassium is 3.2. said order in place
[2022-05-15 16:00] VITALS: BP 167/65
[2022-05-15] MEDS: POTASSIUM CHLORIDE 10 MEQ/50 ML PREMIXED IVPB FOR PERIPHERAL LINE IV SCH ×4 (16:04→20:30)
--- NOTE | 2022-05-15 16:22 | NUR ---
rn note patient HR 57, hold metoprolol
--- NOTE | 2022-05-15 17:41 | NUR ---
RN NOTE notified dr. hill that pt bp is 167/65, hr 57. dr. hill said ok to give hydralazine. held metoprol due to low HR. aware and agreed. orders noted and carried out
[2022-05-15] MEDS: DONEPEZIL 5 MG TABLET PO SCH (17:55)
--- NOTE | 2022-05-15 19:30 | NUR ---
MS RN OPENING NOTE RECEIVED PT IN BED, AWAKE, A/0 X1-2 AND VERBALLY RESPONSIVE.PT IS ON RA, TOLERATING WELL AT 99%, NO S/S OF ACUTE DISTRESS,NO PAIN OR DISCOMFORT AT THIS TIME. PT IV WAS PULLED OUT AND REPLACED DURING REPORT, IV ACCESS RHAND #24G AND RUNNING POTASSIUM, AND NS AT 75 ML/HR. ALL SAFETY MEASURES IN PLACE. BED IN LOWEST POSITION AND LOCKED. BED RAILS UP X2, CALL LIGHT WITH IN REACH BED ALARM ON. WILL CONTINUE TO MONITOR THROUGHOUT SHIFT.
[2022-05-15 20:00] VITALS: BP 178/82
--- NOTE | 2022-05-15 20:12 | NUR ---
RN CLOSING NOTE PT IN BED, AWAKE, A/0 X1-2. PT ROOM AIR AT 97%.NO PAIN OR DISCOMFORT AT THIS TIME. PT HAS NEW IV ACCESS ON RIGHT HAND 24 GAUGE, PATENT AND INTACT, FLUSHING WELL. R 22 GAUGE IV DISLODGED.REMOVED AND PLACED NEW ONE WITH INSURANCE SERVICE REPRESENTATIVE RN. NO S/S OF INFILTRATION OR LEAKING AT THIS TIME. NS AT 75 CC/HR. ALL SAFETY MEASURES IN PLACE. BED IN LOWEST POSITION AND LOCKED. BED RAILS UP X2, CALL LIGHT WITH IN REACH BED ALARM ON.ENDORSED TO INSURANCE SERVICE REPRESENTATIVE RN
[2022-05-15] MEDS: CLONIDINE HCL 0.1 MG TABLET PO PRN (20:13)
[2022-05-15] MEDS: CEFTRIAXONE 1 G in IV D5W 50 ML IV SCH (21:28)
[2022-05-16 04:00] VITALS: BP 190/72
[2022-05-16] MEDS: METRONIDAZOLE 500MG/ NS 100ML 500 MG in PREMIX 1 EA IV SCH ×3 (04:35→21:32)
[2022-05-16] MEDS: CLONIDINE HCL 0.1 MG TABLET PO PRN ×2 (04:35→12:39)
[2022-05-16] MEDS: IV NS 0.9% 1,000 ML IV PRN (04:42)
--- NOTE | 2022-05-16 07:01 | NUR ---
MS RN CLOSING NOTE PT IN BED, ASLEEP, A/0 X1-2 AND VERBALLY RESPONSIVE.PT IS ON RA, TOLERATING WELL AT 99%, NO S/S OF ACUTE DISTRESS,NO PAIN OR DISCOMFORT AT THIS TIME, IV ACCESS RHAND #24G , AND NS AT 75 ML/HR. ALL DUE MEDS GIVEN. PT ROOM WAS SWITCHED.ALL SAFETY MEASURES IN PLACE. BED IN LOWEST POSITION AND LOCKED. BED RAILS UP X2, CALL LIGHT WITH IN REACH BED ALARM ON. WILL ENDORSE TO MORNING SHIFT.
--- NOTE | 2022-05-16 07:25 | NUR ---
RN OPENING NOTE PT IN BED, AWAKE, A/0 X1-2. PT ROOM AIR AT 99%.NO PAIN OR DISCOMFORT AT THIS TIME. PT HAS IV ACCESS ON RIGHT HAND 24 GAUGE, PATENT AND INTACT, FLUSHING WELL. NO S/S OF INFILTRATION OR LEAKING AT THIS TIME.. ALL SAFETY MEASURES IN PLACE. BED IN LOWEST POSITION AND LOCKED. BED RAILS UP X2, CALL LIGHT WITH IN REACH BED ALARM ON.
[2022-05-16 08:00] VITALS: BP 175/80
[2022-05-16] MEDS: PANTOPRAZOLE 40 MG TABLET.DR PO SCH ×2 (08:59→09:15)
[2022-05-16] MEDS: LEVOTHYROXINE SODIUM 75 MCG TABLET PO SCH (08:59)
[2022-05-16] MEDS: LEVETIRACETAM (250 MG) 250 MG TABLET PO SCH ×2 (09:00→16:24)
[2022-05-16] MEDS: BENZTROPINE MESYLATE (1 MG) 1 MG TABLET PO SCH ×2 (09:00→16:24)
[2022-05-16] MEDS: hydrALAZINE HCL 25 MG TABLET PO SCH (09:00)
[2022-05-16] MEDS: MEMANTINE HCL 5 MG TABLET PO SCH (09:01)
[2022-05-16] MEDS: ESCITALOPRAM OXALATE (10 MG) 10 MG TABLET PO SCH ×2 (09:01→09:15)
[2022-05-16] MEDS: SERTRALINE HCL 50 MG TABLET PO SCH ×2 (09:01→16:24)
[2022-05-16] MEDS: METOPROLOL TARTRATE 50 MG TABLET PO SCH ×5 (09:01→18:35)
[2022-05-16] MEDS: APIXABAN 2.5 MG TABLET PO SCH ×2 (09:04→16:26)
--- NOTE | 2022-05-16 09:11 | NUR ---
rn note pulled out Escitalopram 2 tablets and Protonix 40 mg 1 tablet. started to crush medications and these 3 medications fell in the sink. notified pharmacy of this error and said okay to pull out again Addendum: 05/16/22 at 922 by ANNETTE FRANK RN pulled out 1 metoprolol not given due to fell on the floor, pulled out new metoprolol Addendum: 05/16/22 at 927 by ANNETTE FRANK RN found metoprolol that was pulled out earlier. will return to [facility]
[2022-05-16] MEDS: ENSURE ENLIVE 237 ML LIQUID (VANILLA) PO SCH ×3 (09:54→17:59)
--- NOTE | 2022-05-16 12:00 | NUR ---
rn note spoke with Dr. Bates about parameters of metoprolol. said to hold Metoprol if hr less than 55
[2022-05-16] MEDS ORDERED: HYDR-4076 PO (12:23)
[2022-05-16] MEDS ORDERED: POTASSIUM CHLORIDE 20 MEQ TAB.PRT.SR PO ONE (13:00)
--- NOTE | 2022-05-16 14:30 | NUR ---
rn note pt bp 202/ 84. notified if clonidine can ge given due to high bp. said okay to give. pt hr 55 md said ok to hold metoprolol
[2022-05-16] MEDS: hydrALAZINE HCL 50 MG TABLET PO SCH ×2 (14:32→16:25)
--- NOTE | 2022-05-16 14:51 | NUR ---
rn note notified that pt bp is 162/73 and if pt safe for discharge. will follow up.
[2022-05-16 16:00] VITALS: BP 133/56
[2022-05-16] MEDS: DONEPEZIL 5 MG TABLET PO SCH (18:33)
--- NOTE | 2022-05-16 19:06 | NUR ---
RN CLOSING NOTE PT IN BED, AWAKE, A/0 X1-2. PT ROOM AIR AT 99%.NO PAIN OR DISCOMFORT AT THIS TIME. PT HAS NEW IV ACCESS ON LEFT HAND 24 GAUGE, PATENT AND INTACT, FLUSHING WELL. R 22 GAUGE IV DISLODGED.SWOLLEN REMOVED IV SITE. NO S/S OF INFILTRATION OR LEAKING AT THIS TIME. NS AT 75 CC/HR. ALL SAFETY MEASURES IN PLACE. BED IN LOWEST POSITION AND LOCKED. BED RAILS UP X2, CALL LIGHT WITH IN REACH BED ALARM ON.ENDORSED TO FIRST FRONT VENTILATOR RN
--- NOTE | 2022-05-16 19:12 | NUR ---
MS RN OPENING NOTE RECEIVED PT IN BED, AWAKE, A/0 X1-2 AND VERBALLY RESPONSIVE, AND ABLE TO MAKE NEEDS KNOWN.PT IS ON RA, TOLERATING WELL AT 99%, NO S/S OF ACUTE DISTRESS,NO PAIN OR DISCOMFORT AT THIS TIME. IV ACCESS [facility] #24G, INTACT AND PATENT. ALL SAFETY MEASURES IN PLACE. BED IN LOWEST POSITION AND LOCKED. BED RAILS UP X2, CALL LIGHT WITH IN REACH BED ALARM ON. WILL CONTINUE TO MONITOR THROUGHOUT SHIFT.
--- NOTE | 2022-05-16 19:16 | NUR ---
RN CLOSING NOTE PT IN BED, AWAKE, A/0 X1-2. PT ROOM AIR AT 99%.NO PAIN OR DISCOMFORT AT THIS TIME. PT HAS NEW IV ACCESS ON LEFT HAND 24 GAUGE, PATENT AND INTACT, FLUSHING WELL. R 22 GAUGE IV DISLODGED.SWOLLEN REMOVED IV SITE. NO S/S OF INFILTRATION OR LEAKING AT THIS TIME.NO IV FLUIDS CURRENTLY RUNNING. ALL SAFETY MEASURES IN PLACE. BED IN LOWEST POSITION AND LOCKED. BED RAILS UP X2, CALL LIGHT WITH IN REACH BED ALARM ON.ENDORSED TO GAS LINE REPAIRER RN
[2022-05-16 20:00] VITALS: BP 142/58
[2022-05-16] MEDS: CEFTRIAXONE 1 G in IV D5W 50 ML IV SCH (20:49)
[2022-05-16] MEDS: ZOLPIDEM TARTRATE 5 MG TABLET PO PRN (20:50)
--- NOTE | 2022-05-16 20:50 | NUR ---
RN NOTE AMBIEN GOT DROPPED ON THE FLOOR WITNESSED BY CHELSEY SILVA, A NEW AMBIEN WAS TAKEN OUT OF [facility].
[2022-05-17 04:00] VITALS: BP 168/70
[2022-05-17] MEDS: CLONIDINE HCL 0.1 MG TABLET PO PRN (05:26)
[2022-05-17] MEDS: METRONIDAZOLE 500MG/ NS 100ML 500 MG in PREMIX 1 EA IV SCH (05:27)
--- NOTE | 2022-05-17 06:57 | NUR ---
MS RN CLOSING NOTE PT IN BED, ASLEEP, A/0 X1-2 AND VERBALLY RESPONSIVE.PT IS ON RA, TOLERATING WELL AT 99%, NO S/S OF ACUTE DISTRESS,NO PAIN OR DISCOMFORT AT THIS TIME, IV ACCESS LHAND #24G , ALL DUE MEDS GIVEN. ALL SAFETY MEASURES IN PLACE. BED IN LOWEST POSITION AND LOCKED. BED RAILS UP X2, CALL LIGHT WITH IN REACH BED ALARM ON. WILL ENDORSE TO MORNING SHIFT.
[2022-05-17] MEDS: LEVOTHYROXINE SODIUM 75 MCG TABLET PO SCH (07:33)
[2022-05-17] MEDS: PANTOPRAZOLE 40 MG TABLET.DR PO SCH (07:33)
[2022-05-17] MEDS: ENSURE ENLIVE 237 ML LIQUID (VANILLA) PO SCH ×3 (07:58→16:14)
[2022-05-17 08:00] VITALS: BP 190/71
--- NOTE | 2022-05-17 08:00 | NUR ---
MS RN NOTE PT IN BED, , A/0 X1-2 AND VERBALLY RESPONSIVE.PT IS ON RA, TOLERATING WELL AT 98%, NO S/S OF ACUTE DISTRESS,NO PAIN OR DISCOMFORT AT THIS TIME, IV ACCESS L HAND #24G INTACT AND FLUSHED WELL , ALL SAFETY MEASURES IN PLACE. BED IN LOWEST POSITION AND LOCKED. BED RAILS UP X2, CALL LIGHT WITH IN REACH BED ALARM ON. WILL CONT TO MONITOR ,HAVING BREAKFAST AT THIS TIME
--- NOTE | 2022-05-17 08:35 | NUR ---
MS RN NOTE BP 190/71 WILL GIVE APRESOLINE 100 MG AND LOPRESSOR 50 MG ORDERED AND WILL MONITOR CLOSELY BP
[2022-05-17] MEDS: BENZTROPINE MESYLATE (1 MG) 1 MG TABLET PO SCH ×2 (08:36→16:11)
[2022-05-17] MEDS: LEVETIRACETAM (250 MG) 250 MG TABLET PO SCH ×2 (08:36→16:11)
[2022-05-17] MEDS: MEMANTINE HCL 5 MG TABLET PO SCH (08:36)
[2022-05-17] MEDS: ESCITALOPRAM OXALATE (10 MG) 10 MG TABLET PO SCH (08:36)
[2022-05-17] MEDS: SERTRALINE HCL 50 MG TABLET PO SCH ×2 (08:36→16:11)
[2022-05-17] MEDS: METOPROLOL TARTRATE 50 MG TABLET PO SCH ×2 (08:37→12:09)
[2022-05-17] MEDS: hydrALAZINE HCL 50 MG TABLET PO SCH ×3 (08:37→16:14)
[2022-05-17] MEDS: APIXABAN 2.5 MG TABLET PO SCH ×2 (08:38→16:13)
[2022-05-17 09:30] VITALS: BP 152/66
--- NOTE | 2022-05-17 09:30 | NUR ---
MS RN NOTE RECHECKED BP AFTER GIVE PO BP MEDS, NOW IS 152/66 ,WILL MONITOR
--- NOTE | 2022-05-17 10:44 | NUR ---
ms rn note called to dr hill notified that earlier bp was 190/71 and after giving Apresoline and Lopressor bp 152/66, per dr hill ok to discharge home, called son and left a message will f\u
--- NOTE | 2022-05-17 11:28 | NUR ---
ms rn note pt ambulated with pt ,able to make few steps with walker with max assistance, spoke with bottle caser with possible to d\c to snf, case solange spoke with son, will f\u
[2022-05-17 12:00] VITALS: BP 168/77
--- NOTE | 2022-05-17 12:54 | NUR ---
MS RN NOTE PER SWING SAW OPERATOR PATIENT IS GONG TO BE DISCHARGE HOME,ALSO PER SON PATIENT HAS BOOT AND SADDLE REPAIR PERSON AND OK TO DISCHARGE HOME , AWARE THAT PATIENT STILL UNABLE TO AMBULATE WELL VERY WEEK ,NEEDS MAX ASSISTANCE, OFFERED SNF BUT SON INSISTING TO DISCHARGE HOME G HOME, WILL F\U
[2022-05-17] MEDS ORDERED: METRONIDAZOLE 500 MG TABLET PO SCH (13:00)
[2022-05-17] MEDS ORDERED: LABETALOL HCL (100MG) 100 MG TABLET PO SCH (14:00)
--- NOTE | 2022-05-17 15:47 | NUR ---
RN NOTES SPOKE TO DR. LEZAMA ANESTHESIOLOGY PHYSICIAN ASSISTANT, NOTIFY ABOUT THE HR= 56-57, BP 143/76, PATIENT ON LABETOLOL 100MG, PER DR. LEZAMA HOLD DOSE FOR NOW. WITH ORDER FOR PARAMETER OF LABETOL HOLD IF HR <60, NOTED AND CARRIED OUT, WILL CONTINUE PLAN OF CARE.
[2022-05-17 16:14] VITALS: BP 147/77
[2022-05-17] MEDS: DONEPEZIL 5 MG TABLET PO SCH (17:09)
--- NOTE | 2022-05-17 18:00 | NUR ---
TOOL MAKER APPRENTICE NOTE PER DR UNDERWOOD OK TO DISCHARGE HOME ,PATIENT HAS CAREGIVER AT HOME
--- NOTE | 2022-05-17 18:13 | NUR ---
MS RN NOTE DISCHARGE INSTRUCTION GIVEN TO SON ,UNDERSTOOD , HL ON LT HAND REMOVED , NO BLEEDING NOTED, DRY DRESSING APPLIED , BELONGING CHECKED BY KUMAR ALMEIDA, INSTRUCTED TO F\U WITH PRIMARY CARE DOCTOR AND TAKE PX ORDERED EXPLAINED HOW TO TAKE MEDICATION AND POSSIBLE SIDE EFFECTS , TAKEN PATIENT TO W\C TO LOBBY WITH SON AND BILINGUAL STUDENT TUTOR WITH STABLE CONDITION,
== END 2022-05-17 17:57 | disposition home health service (06) | DRG 391 ==
LOC: ER 18:31 → TRANSITION 05-08 04:11 → TELE-TD 05-08 06:07 → TELE1 05-08 06:27 → TELE-TD 05-11 13:47 → MEDSG1 05-11 13:54
PROVIDERS: ADMIT Internal Medicine; ATTEND Legal Medicine
DX: A09 Infectious gastroenteritis and colitis, unspecified (principal); I21.A1 Myocardial infarction type 2; I47.20 Ventricular tachycardia, unspecified; N39.0 Urinary tract infection, site not specified; K57.92 Diverticulitis of intestine, part unspecified, without perforation or abscess without bleeding; K59.00 Constipation, unspecified; I11.0 Hypertensive heart disease with heart failure; I25.10 Atherosclerotic heart disease of native coronary artery without angina pectoris; K76.89 Other specified diseases of liver; Z20.822 Contact with and (suspected) exposure to COVID-19; F03.90 Unspecified dementia, unspecified severity, without behavioral disturbance, psychotic disturbance, mood disturbance, and anxiety; E78.5 Hyperlipidemia, unspecified; I50.9 Heart failure, unspecified; E03.9 Hypothyroidism, unspecified; D63.8 Anemia in other chronic diseases classified elsewhere; Z79.01 Long term (current) use of anticoagulants; Z79.899 Other long term (current) drug therapy; N28.1 Cyst of kidney, acquired; Z87.891 Personal history of nicotine dependence; E87.6 Hypokalemia; I10 Essential (primary) hypertension; B96.89 Other specified bacterial agents as the cause of diseases classified elsewhere; G89.29 Other chronic pain
CPT/HCPCS: 36415; 71045-TC; 74018; 74250-TC; 80048-TC; 80061-TC; 80076-TC; 81001; 82140-TC; 83690-TC; 83735-TC; 83880; 84075-TC; 84100-TC; 84132-TC; 84484-TC; 85025-TC; 87081-TC; 87086-TC; 87186-TC; 93307-TC; 97112-TC; 97116-TC; A4216; C9803; G0378; J0696; J2270; J2405; J3480; J3490; J7030; J7042; J7050; J7060; Q9963; Q9967

== ENCOUNTER 2022-09-09 12:06 | Inpatient (IN) | payer MEDICARE, OTHER ==
[~2022-09-09] VITALS: Ht 152.4 cm; Wt 49.9 kg
[~2022-09-09 12:06] MED LIST changes: -BENZ0.5T43 PO; -CLON0.2T PO; +DOCU-141 PO; -ESCI10TA PO; +NIFE-35 PO; +OMEP1CAP24 PO; +ONDA4TAB11 SL; -PANT40TA49 PO
[2022-09-09 12:51] LABS: WHITE BLOOD COUNT (AUTO) 8.9 K/uL (4.3-11.0)
[2022-09-09 12:58] LABS: CALCIUM, SERUM 9.2 mg/dL (8.5-10.1); CARBON DIOXIDE 26 mmol/L (21-32); CHLORIDE 103 mmol/L (98-107); CREATININE 1.5 mg/dL (0.6-1.3); GLUCOSE 150 mg/dL (74-106); POTASSIUM 4.1 mmol/L (3.5-5.1); SODIUM SERUM 138 mmol/L (136-145); UREA NITROGEN, BLOOD 28 mg/dL (7-18)
[2022-09-09 13:05] LABS: ALANINE AMINOTRANSFERASE 18 U/L (12-78); ALBUMIN 3.8 g/dL (3.4-5.0); ALKALINE PHOSPHATASE 81 U/L (46-116); ASPARTATE AMINOTRANSFERASE 15 U/L (15-37); BILIRUBIN,DIRECT 0.2 mg/dL (0.0-0.2); BILIRUBIN,TOTAL 0.5 mg/dL (0.2-1.0); TOTAL PROTEIN, SERUM 7.8 g/dL (6.4-8.2)
[2022-09-09 13:14] LABS: BASOPHILS % (AUTO) 0.2 % (0.0-2.0); EOSINOPHILS % (AUTO) 1.8 % (0.0-6.0); HEMATOCRIT 38 % (33-45); HEMOGLOBIN 12.4 g/dL (11.5-14.8); LYMPHOCYTES # (AUTO) 1.5 K/uL (0.8-4.8); LYMPHOCYTES % (AUTO) 16.5 % (20.0-44.0); MEAN CORPUSCULAR HGB CONC 33 g/dl (31.0-36.0); MEAN CORPUSCULAR VOLUME 104 fL (82-100); MONOCYTES # (AUTO) 0.7 K/uL (0.1-1.30); MONOCYTES % (AUTO) 7.9 % (2.0-12.0); NEUTROPHILS # (AUTO) 6.6 K/uL (1.8-8.9); NEUTROPHILS % (AUTO) 73.6 % (43.0-81.0); PLATELET COUNT (AUTO) 304 K/uL (150-450); RED BLOOD CELL COUNT(AUTO) 3.64 MIL/uL (4.0-5.2)
[2022-09-09] MEDS ORDERED: LORA2TAB95 PO (13:24)
[2022-09-09] MEDS ORDERED: HYDR-4076 PO (13:24)
[2022-09-09] MEDS ORDERED: BENZ0.5T43 PO (13:24)
[2022-09-09] MEDS ORDERED: POTA20TA83 PO (13:24)
[2022-09-09] MEDS ORDERED: DEXT1CAP3 PO (13:24)
[2022-09-09 14:08] LABS: BILIRUBIN,URINE NEGATIVE (NEGATIVE); COLOR,URINE YELLOW (YELLOW); LEUKOCYTE ESTERASE ,URINE 1+ (NEGATIVE); NITRITE, URINE NEGATIVE (NEGATIVE); PROTEIN,URINE 1+ mg/dl (NEGATIVE); UGLUCOSE NEGATIVE (NEGATIVE); UROBILINOGEN,URINE 0.2 EU/dL (0.2)
[2022-09-09 14:25] LABS: BACTERIA,URINE Many /HPF (None Seen); SQUAMOUS EPITHELIAL CELL,UR Few /HPF (None Seen)
[2022-09-09] MEDS ORDERED: CEFTRIAXONE 1GM BAG (ER ONLY) 50 ML IV ONE ×2 (14:30→14:58)
[2022-09-09] MEDS ORDERED: Z GUARD REMEDY 4 OZ OINT TP PRN (15:30)
[2022-09-09] MEDS ORDERED: ONDANSETRON HCL/PF 4 MG/2 ML VIAL IVP PRN (15:30)
[2022-09-09] MEDS ORDERED: ZOLPIDEM TARTRATE 5 MG TABLET PO PRN (15:30)
[2022-09-09] MEDS ORDERED: MAGNESIUM HYDROXIDE 30 ML UDC PO PRN (15:30)
[2022-09-09] MEDS ORDERED: MAG HYDROX/AL HYDROX/SIMETH 30 ML UDC PO PRN (15:30)
[2022-09-09] MEDS ORDERED: ACETAMINOPHEN 325 MG TABLET PO PRN (15:30)
[2022-09-09 18:16] VITALS: BP 157/63
[2022-09-09] MEDS: IV 1/2NS 1000 ML 1,000 ML IV PRN (18:47)
[2022-09-09] MEDS ORDERED: ONDANSETRON 4 MG TAB.RAPDIS SL PRN (19:00)
[2022-09-09 20:00] VITALS: BP 153/74
[2022-09-09] MEDS ORDERED: ENOXAPARIN SODIUM 30 MG/0.3 ML DISP.SYRIN SQ SCH (21:00)
[2022-09-09] MEDS: LORAZEPAM 1 MG TABLET PO SCH (21:17)
[2022-09-09] MEDS: LEVETIRACETAM (250 MG) 250 MG TABLET PO SCH (21:17)
[2022-09-10 05:55] LABS: BASOPHILS % (AUTO) 0.3 % (0.0-2.0); EOSINOPHILS % (AUTO) 2.7 % (0.0-6.0); HEMATOCRIT 30 % (33-45); HEMOGLOBIN 10.2 g/dL (11.5-14.8); LYMPHOCYTES % (AUTO) 27.6 % (20.0-44.0); MEAN CORPUSCULAR HGB CONC 34 g/dl (31.0-36.0); MEAN CORPUSCULAR VOLUME 104 fL (82-100); MONOCYTES # (AUTO) 0.7 K/uL (0.1-1.30); MONOCYTES % (AUTO) 9.3 % (2.0-12.0); NEUTROPHILS # (AUTO) 4.4 K/uL (1.8-8.9); NEUTROPHILS % (AUTO) 60.1 % (43.0-81.0); PLATELET COUNT (AUTO) 226 K/uL (150-450); RED BLOOD CELL COUNT(AUTO) 2.94 MIL/uL (4.0-5.2); WHITE BLOOD COUNT (AUTO) 7.3 K/uL (4.3-11.0)
[2022-09-10] MEDS: IV 1/2NS 1000 ML 1,000 ML IV PRN (06:03)
[2022-09-10 06:09] LABS: CALCIUM, SERUM 8.6 mg/dL (8.5-10.1); CARBON DIOXIDE 24 mmol/L (21-32); CHLORIDE 106 mmol/L (98-107); GLUCOSE 107 mg/dL (74-106); MAGNESIUM 2.1 mg/dL (1.8-2.4); PHOSPHORUS 3.8 mg/dL (2.5-4.9); POTASSIUM 3.4 mmol/L (3.5-5.1); SODIUM SERUM 138 mmol/L (136-145); UREA NITROGEN, BLOOD 20 mg/dL (7-18)
[2022-09-10] MEDS ORDERED: PANTOPRAZOLE 40 MG/PACK PACK PO SCH (07:30)
[2022-09-10] MEDS: PANTOPRAZOLE 40 MG TABLET.DR PO SCH (07:50)
[2022-09-10] MEDS: LEVOTHYROXINE SODIUM 75 MCG TABLET PO SCH (07:51)
[2022-09-10 08:00] VITALS: BP 167/87
[2022-09-10] MEDS: POTASSIUM CHLORIDE 20 MEQ TAB.PRT.SR PO SCH (08:45)
[2022-09-10] MEDS: APIXABAN 2.5 MG TABLET PO SCH ×2 (08:46→16:51)
[2022-09-10] MEDS: SERTRALINE HCL 50 MG TABLET PO SCH ×2 (08:46→16:49)
[2022-09-10] MEDS: NIFEdipine XL (30MG) 30 MG TAB PO SCH (08:48)
[2022-09-10] MEDS: MEMANTINE HCL 5 MG TABLET PO SCH (08:49)
[2022-09-10] MEDS: BENZTROPINE MESYLATE (1 MG) 1 MG TABLET PO SCH ×2 (08:49→16:48)
[2022-09-10] MEDS: hydrALAZINE HCL 25 MG TABLET PO SCH ×3 (08:49→16:49)
[2022-09-10] MEDS: METOPROLOL TARTRATE 50 MG TABLET PO SCH ×2 (08:49→16:50)
[2022-09-10] MEDS: LEVETIRACETAM (250 MG) 250 MG TABLET PO SCH ×2 (08:49→22:05)
[2022-09-10] MEDS ORDERED: POTASSIUM CHLORIDE 20 MEQ TAB.PRT.SR PO SCH (11:00)
[2022-09-10] MEDS: CEFTRIAXONE 1 G in IV D5W 50 ML IV SCH (15:05)
[2022-09-10 16:00] VITALS: BP 103/76
[2022-09-10] MEDS: DONEPEZIL 5 MG TABLET PO SCH (18:07)
[2022-09-10] MEDS: DOCUSATE SODIUM 100 MG CAPSULE PO SCH (18:07)
[2022-09-10] MEDS: QUINIDINE PO SCH (18:09)
[2022-09-10] MEDS: DEXTROMETHORPHAN HBR PO SCH (18:09)
[2022-09-10 20:00] VITALS: BP 127/50
[2022-09-10] MEDS: LORAZEPAM 1 MG TABLET PO SCH (22:05)
[2022-09-10] MEDS: MUPIROCIN OINT 2% 22 GM TUBE NS SCH (22:20)
[2022-09-11] MEDS: IV 1/2NS 1000 ML 1,000 ML IV PRN ×2 (00:32→14:31)
[2022-09-11 05:46] LABS: BASOPHILS % (AUTO) 0.4 % (0.0-2.0); EOSINOPHILS % (AUTO) 2.3 % (0.0-6.0); HEMATOCRIT 36 % (33-45); HEMOGLOBIN 12.2 g/dL (11.5-14.8); LYMPHOCYTES # (AUTO) 2.1 K/uL (0.8-4.8); LYMPHOCYTES % (AUTO) 29.5 % (20.0-44.0); MEAN CORPUSCULAR HGB CONC 34 g/dl (31.0-36.0); MEAN CORPUSCULAR VOLUME 103 fL (82-100); MONOCYTES # (AUTO) 0.7 K/uL (0.1-1.30); NEUTROPHILS # (AUTO) 4.1 K/uL (1.8-8.9); NEUTROPHILS % (AUTO) 57.8 % (43.0-81.0); PLATELET COUNT (AUTO) 250 K/uL (150-450); WHITE BLOOD COUNT (AUTO) 7.1 K/uL (4.3-11.0)
[2022-09-11 05:58] LABS: CALCIUM, SERUM 9.1 mg/dL (8.5-10.1); CREATININE 0.9 mg/dL (0.6-1.3); MAGNESIUM 2.2 mg/dL (1.8-2.4); PHOSPHORUS 3.5 mg/dL (2.5-4.9); POTASSIUM 3.1 mmol/L (3.5-5.1)
[2022-09-11] MEDS: LEVOTHYROXINE SODIUM 75 MCG TABLET PO SCH (07:54)
[2022-09-11] MEDS: PANTOPRAZOLE 40 MG TABLET.DR PO SCH (07:54)
[2022-09-11] MEDS ORDERED: POTASSIUM CHLORIDE 20 MEQ TAB.PRT.SR PO SCH (08:00)
[2022-09-11] MEDS: DEXTROMETHORPHAN HBR PO SCH ×2 (08:24→17:53)
[2022-09-11] MEDS: EPLERENONE 25 MG PO SCH (08:24)
[2022-09-11] MEDS: QUINIDINE PO SCH ×2 (08:24→17:53)
[2022-09-11] MEDS: NIFEdipine XL (30MG) 30 MG TAB PO SCH (08:25)
[2022-09-11] MEDS: METOPROLOL TARTRATE 50 MG TABLET PO SCH ×2 (08:25→17:52)
[2022-09-11] MEDS: SERTRALINE HCL 50 MG TABLET PO SCH ×2 (08:25→17:52)
[2022-09-11] MEDS: hydrALAZINE HCL 25 MG TABLET PO SCH ×3 (08:26→17:52)
[2022-09-11] MEDS: LEVETIRACETAM (250 MG) 250 MG TABLET PO SCH ×2 (08:26→21:28)
[2022-09-11] MEDS: MEMANTINE HCL 5 MG TABLET PO SCH (08:26)
[2022-09-11] MEDS: BENZTROPINE MESYLATE (1 MG) 1 MG TABLET PO SCH ×2 (08:27→17:53)
[2022-09-11] MEDS: APIXABAN 2.5 MG TABLET PO SCH ×2 (08:30→17:46)
[2022-09-11] MEDS: POTASSIUM CHLORIDE 20 MEQ TAB.PRT.SR PO SCH (08:32)
[2022-09-11] MEDS: MUPIROCIN OINT 2% 22 GM TUBE NS SCH ×2 (08:33→21:34)
[2022-09-11] MEDS: CEFTRIAXONE 1 G in IV D5W 50 ML IV SCH (14:31)
[2022-09-11] MEDS: LORAZEPAM INJ 2 MG/ML VIAL IV PRN (15:23)
[2022-09-11 16:16] VITALS: BP 156/80
[2022-09-11] MEDS: DOCUSATE SODIUM 100 MG CAPSULE PO SCH (17:52)
[2022-09-11] MEDS: DONEPEZIL 5 MG TABLET PO SCH (17:53)
[2022-09-11 20:32] VITALS: BP 134/71
[2022-09-11] MEDS: LORAZEPAM 1 MG TABLET PO SCH (21:27)
[2022-09-12] MEDS: IV 1/2NS 1000 ML 1,000 ML IV PRN (04:24)
[2022-09-12 06:11] LABS: BASOPHILS % (AUTO) 0.3 % (0.0-2.0); EOSINOPHILS % (AUTO) 2.1 % (0.0-6.0); HEMATOCRIT 35 % (33-45); HEMOGLOBIN 11.8 g/dL (11.5-14.8); LYMPHOCYTES # (AUTO) 1.7 K/uL (0.8-4.8); LYMPHOCYTES % (AUTO) 26.8 % (20.0-44.0); MEAN CORPUSCULAR HGB CONC 34 g/dl (31.0-36.0); MEAN CORPUSCULAR VOLUME 103 fL (82-100); MONOCYTES # (AUTO) 0.6 K/uL (0.1-1.30); MONOCYTES % (AUTO) 9.9 % (2.0-12.0); NEUTROPHILS # (AUTO) 3.9 K/uL (1.8-8.9); NEUTROPHILS % (AUTO) 60.9 % (43.0-81.0); PLATELET COUNT (AUTO) 256 K/uL (150-450); RED BLOOD CELL COUNT(AUTO) 3.42 MIL/uL (4.0-5.2); WHITE BLOOD COUNT (AUTO) 6.5 K/uL (4.3-11.0)
[2022-09-12 06:29] LABS: MAGNESIUM 2.1 mg/dL (1.8-2.4); PHOSPHORUS 3.5 mg/dL (2.5-4.9)
[2022-09-12 08:00] VITALS: BP 226/98
[2022-09-12] MEDS: PANTOPRAZOLE 40 MG TABLET.DR PO SCH (08:36)
[2022-09-12] MEDS: LEVOTHYROXINE SODIUM 75 MCG TABLET PO SCH (08:36)
[2022-09-12] MEDS: METOPROLOL TARTRATE 50 MG TABLET PO SCH ×2 (08:51→16:48)
[2022-09-12] MEDS: MEMANTINE HCL 5 MG TABLET PO SCH (08:52)
[2022-09-12] MEDS: POTASSIUM CHLORIDE 20 MEQ TAB.PRT.SR PO SCH (08:53)
[2022-09-12] MEDS: LEVETIRACETAM (250 MG) 250 MG TABLET PO SCH ×2 (08:53→22:02)
[2022-09-12] MEDS: BENZTROPINE MESYLATE (1 MG) 1 MG TABLET PO SCH ×2 (08:53→16:47)
[2022-09-12] MEDS: hydrALAZINE HCL 25 MG TABLET PO SCH ×3 (08:54→16:48)
[2022-09-12] MEDS: NIFEdipine XL (30MG) 30 MG TAB PO SCH (08:56)
[2022-09-12] MEDS: EPLERENONE 25 MG PO SCH (08:57)
[2022-09-12] MEDS: DEXTROMETHORPHAN HBR PO SCH ×2 (08:58→16:50)
[2022-09-12] MEDS: QUINIDINE PO SCH ×2 (08:58→16:50)
[2022-09-12] MEDS: SERTRALINE HCL 50 MG TABLET PO SCH ×2 (08:59→16:47)
[2022-09-12] MEDS: MUPIROCIN OINT 2% 22 GM TUBE NS SCH ×2 (09:10→22:03)
[2022-09-12] MEDS: APIXABAN 2.5 MG TABLET PO SCH ×2 (09:12→16:49)
[2022-09-12] MEDS ORDERED: POTASSIUM CHLORIDE 20 MEQ TAB.PRT.SR PO ONE (09:30)
[2022-09-12] MEDS ORDERED: POTASSIUM CHLORIDE 20 MEQ POWDER PACKET PO SCH (10:00)
[2022-09-12] MEDS: CEFTRIAXONE 1 G in IV D5W 50 ML IV SCH (14:29)
[2022-09-12 16:00] VITALS: BP 154/73
[2022-09-12] MEDS: DONEPEZIL 5 MG TABLET PO SCH (17:06)
[2022-09-12] MEDS: DOCUSATE SODIUM 100 MG CAPSULE PO SCH (17:06)
[2022-09-12 20:00] VITALS: BP 173/73
[2022-09-12] MEDS: LORAZEPAM 1 MG TABLET PO SCH (22:02)
[2022-09-13] MEDS: LEVOTHYROXINE SODIUM 75 MCG TABLET PO SCH (07:59)
[2022-09-13] MEDS: PANTOPRAZOLE 40 MG TABLET.DR PO SCH (07:59)
[2022-09-13] MEDS: POTASSIUM CHLORIDE 20 MEQ TAB.PRT.SR PO SCH (08:36)
[2022-09-13] MEDS: hydrALAZINE HCL 25 MG TABLET PO SCH ×3 (08:38→16:09)
[2022-09-13] MEDS: METOPROLOL TARTRATE 50 MG TABLET PO SCH ×2 (08:38→16:08)
[2022-09-13] MEDS: NIFEdipine XL (30MG) 30 MG TAB PO SCH (08:39)
[2022-09-13] MEDS: LEVETIRACETAM (250 MG) 250 MG TABLET PO SCH ×2 (08:39→20:51)
[2022-09-13] MEDS: MEMANTINE HCL 5 MG TABLET PO SCH (08:40)
[2022-09-13] MEDS: BENZTROPINE MESYLATE (1 MG) 1 MG TABLET PO SCH ×2 (08:40→16:08)
[2022-09-13] MEDS: SERTRALINE HCL 50 MG TABLET PO SCH ×2 (08:40→16:07)
[2022-09-13] MEDS: DEXTROMETHORPHAN HBR PO SCH ×2 (08:42→16:11)
[2022-09-13] MEDS: EPLERENONE 25 MG PO SCH (08:42)
[2022-09-13] MEDS: QUINIDINE PO SCH ×2 (08:42→16:11)
[2022-09-13] MEDS: APIXABAN 2.5 MG TABLET PO SCH ×2 (08:46→16:10)
[2022-09-13] MEDS: MUPIROCIN OINT 2% 22 GM TUBE NS SCH ×3 (09:19→20:51)
[2022-09-13] MEDS ORDERED: POTASSIUM CHLORIDE 20 MEQ TAB.PRT.SR PO ONE (09:30)
[2022-09-13 09:53] VITALS: BP 184/82
[2022-09-13] MEDS: AMOX/CLAVULANATE 875 MG TABLET PO SCH ×2 (14:17→20:51)
[2022-09-13] MEDS: DONEPEZIL 5 MG TABLET PO SCH (17:02)
[2022-09-13] MEDS: DOCUSATE SODIUM 100 MG CAPSULE PO SCH (17:02)
[2022-09-13 19:03] VITALS: BP 144/73
[2022-09-13 20:00] VITALS: BP 149/73
[2022-09-13] MEDS: LORAZEPAM 1 MG TABLET PO SCH (21:54)
[2022-09-14 06:31] LABS: BASOPHILS % (AUTO) 0.3 % (0.0-2.0); EOSINOPHILS % (AUTO) 2.7 % (0.0-6.0); HEMATOCRIT 36 % (33-45); LYMPHOCYTES # (AUTO) 1.8 K/uL (0.8-4.8); MEAN CORPUSCULAR HGB CONC 33 g/dl (31.0-36.0); MEAN CORPUSCULAR VOLUME 105 fL (82-100); MONOCYTES # (AUTO) 0.7 K/uL (0.1-1.30); MONOCYTES % (AUTO) 10.7 % (2.0-12.0); NEUTROPHILS # (AUTO) 3.6 K/uL (1.8-8.9); NEUTROPHILS % (AUTO) 57.3 % (43.0-81.0); PLATELET COUNT (AUTO) 264 K/uL (150-450); RED BLOOD CELL COUNT(AUTO) 3.45 MIL/uL (4.0-5.2); WHITE BLOOD COUNT (AUTO) 6.4 K/uL (4.3-11.0)
[2022-09-14 06:55] LABS: CALCIUM, SERUM 9.1 mg/dL (8.5-10.1); CARBON DIOXIDE 27 mmol/L (21-32); CHLORIDE 105 mmol/L (98-107); GLUCOSE 126 mg/dL (74-106); POTASSIUM 3.6 mmol/L (3.5-5.1); SODIUM SERUM 139 mmol/L (136-145); UREA NITROGEN, BLOOD 15 mg/dL (7-18)
[2022-09-14] MEDS: LEVOTHYROXINE SODIUM 75 MCG TABLET PO SCH ×3 (07:30→08:13)
[2022-09-14] MEDS: PANTOPRAZOLE 40 MG TABLET.DR PO SCH ×3 (07:30→08:13)
[2022-09-14 08:00] VITALS: BP 154/96
[2022-09-14] MEDS: NIFEdipine XL (30MG) 30 MG TAB PO SCH (09:00)
[2022-09-14] MEDS: MUPIROCIN OINT 2% 22 GM TUBE NS SCH ×2 (09:00→20:10)
[2022-09-14] MEDS: EPLERENONE 25 MG PO SCH (09:00)
[2022-09-14] MEDS: hydrALAZINE HCL 25 MG TABLET PO SCH ×3 (09:00→17:04)
[2022-09-14] MEDS: METOPROLOL TARTRATE 50 MG TABLET PO SCH ×2 (09:00→17:04)
[2022-09-14] MEDS: QUINIDINE PO SCH ×2 (09:00→17:03)
[2022-09-14] MEDS: MEMANTINE HCL 5 MG TABLET PO SCH (09:00)
[2022-09-14] MEDS: APIXABAN 2.5 MG TABLET PO SCH ×2 (09:00→17:06)
[2022-09-14] MEDS: AMOX/CLAVULANATE 875 MG TABLET PO SCH ×2 (09:00→20:08)
[2022-09-14] MEDS: BENZTROPINE MESYLATE (1 MG) 1 MG TABLET PO SCH ×2 (09:00→17:04)
[2022-09-14] MEDS: DEXTROMETHORPHAN HBR PO SCH ×2 (09:00→17:03)
[2022-09-14] MEDS: POTASSIUM CHLORIDE 20 MEQ TAB.PRT.SR PO SCH (09:00)
[2022-09-14] MEDS: LEVETIRACETAM (250 MG) 250 MG TABLET PO SCH ×2 (09:00→20:08)
[2022-09-14] MEDS: ENSURE ENLIVE 237 ML LIQUID (VANILLA) PO SCH ×2 (13:23→17:28)
[2022-09-14] MEDS: LORAZEPAM INJ 2 MG/ML VIAL IV PRN (15:23)
[2022-09-14 16:00] VITALS: BP 150/96
[2022-09-14] MEDS: DOCUSATE SODIUM 100 MG CAPSULE PO SCH (17:02)
[2022-09-14] MEDS: DONEPEZIL 5 MG TABLET PO SCH (17:05)
[2022-09-14 20:00] VITALS: BP 123/73
[2022-09-14] MEDS: LORAZEPAM 1 MG TABLET PO SCH (21:30)
[2022-09-15] MEDS: LEVETIRACETAM (250 MG) 250 MG TABLET PO SCH (08:34)
[2022-09-15] MEDS: QUINIDINE PO SCH ×2 (08:34→16:58)
[2022-09-15] MEDS: EPLERENONE 25 MG PO SCH (08:34)
[2022-09-15] MEDS: ENSURE ENLIVE 237 ML LIQUID (VANILLA) PO SCH ×3 (08:34→16:59)
[2022-09-15] MEDS: DEXTROMETHORPHAN HBR PO SCH ×2 (08:34→16:58)
[2022-09-15] MEDS: hydrALAZINE HCL 25 MG TABLET PO SCH ×3 (08:35→17:00)
[2022-09-15] MEDS: MEMANTINE HCL 5 MG TABLET PO SCH (08:35)
[2022-09-15] MEDS: NIFEdipine XL (30MG) 30 MG TAB PO SCH (08:35)
[2022-09-15] MEDS: BENZTROPINE MESYLATE (1 MG) 1 MG TABLET PO SCH ×2 (08:35→16:58)
[2022-09-15] MEDS: METOPROLOL TARTRATE 50 MG TABLET PO SCH ×2 (08:35→16:58)
[2022-09-15] MEDS: APIXABAN 2.5 MG TABLET PO SCH ×2 (08:37→17:00)
[2022-09-15] MEDS: AMOX/CLAVULANATE 875 MG TABLET PO SCH ×2 (08:39→18:18)
[2022-09-15] MEDS: POTASSIUM CHLORIDE 20 MEQ TAB.PRT.SR PO SCH (08:43)
[2022-09-15] MEDS: MUPIROCIN OINT 2% 22 GM TUBE NS SCH (08:44)
[2022-09-15] MEDS ORDERED: AMOX1TAB16 PO (12:33)
[2022-09-15 15:51] VITALS: BP 140/63
[2022-09-15 17:00] VITALS: BP 140/63
[2022-09-15] MEDS: DONEPEZIL 5 MG TABLET PO SCH (17:04)
[2022-09-15] MEDS: DOCUSATE SODIUM 100 MG CAPSULE PO SCH (17:04)
== END 2022-09-15 18:35 | disposition home health service (06) | DRG 640 ==
LOC: ER 12:28 → TELE 17:53 → MED 09-10 00:50
PROVIDERS: ADMIT Student in an Organized Health Care Education/Training Program; ATTEND Legal Medicine
DX: E86.0 Dehydration (principal); N17.0 Acute kidney failure with tubular necrosis; N39.0 Urinary tract infection, site not specified; F03.93 Unspecified dementia, unspecified severity, with mood disturbance; F33.2 Major depressive disorder, recurrent severe without psychotic features; Z16.24 Resistance to multiple antibiotics; E87.1 Hypo-osmolality and hyponatremia; Z20.822 Contact with and (suspected) exposure to COVID-19; E78.5 Hyperlipidemia, unspecified; I10 Essential (primary) hypertension; I25.10 Atherosclerotic heart disease of native coronary artery without angina pectoris; Z98.61 Coronary angioplasty status; I69.328 Other speech and language deficits following cerebral infarction; G89.4 Chronic pain syndrome; R56.9 Unspecified convulsions; E03.9 Hypothyroidism, unspecified; Z79.01 Long term (current) use of anticoagulants; Z79.899 Other long term (current) drug therapy; K76.89 Other specified diseases of liver; D63.8 Anemia in other chronic diseases classified elsewhere; Z87.891 Personal history of nicotine dependence; Z87.440 Personal history of urinary (tract) infections; Z78.1 Physical restraint status; B96.20 Unspecified Escherichia coli [E. coli] as the cause of diseases classified elsewhere; R41.0 Disorientation, unspecified
CPT/HCPCS: 36415; 71045-TC; 80048-TC; 80076-TC; 81001; 82962-TC; 83735-TC; 83880; 84100-TC; 84484-TC; 85025-TC; 87081-TC; 87086-TC; 97112-TC; 97530-TC; A4223; C9803; G0378; J0696; J2060; J3490; J7060